=== PATIENT | female | born 1950 | race Caucasian/White ===

== ENCOUNTER → 2016-12-27 | Outpatient (CLI) | payer BC ==
--- NOTE | 2016-12-28 07:16 | US ---
EXAMINATION TYPE: US thyroid st tissue head/neck DATE OF EXAM: 12/27/2016 COMPARISON: NONE CLINICAL HISTORY: Thyroid Nodule E04.1. GLAND SIZE: Right Lobe: 4.1 x 1.3 x 1.3 cm Overall Parenchyma: homogenous Left Lobe: 4.8 x 1.8 x 1.6 cm Overall Parenchyma: homogeneous Isthmus Thickness: 0.1cm NODULES RIGHT: # of nodules measured on right: 0 LEFT: # of nodules measured on left: 2 1. 0.9 X 0.9 x 0.6 cm isoechoic solid nodule at the mid pole with well-defined margins; . This nod ule is wider than tall and shows no intranodular vascularity. Prior size: no prior US 2. 0.7 X 0.6 x 0.4 cm hypoechoic cystic nodule at the lower pole with well-defined margins; present with microcalcifications. This nodule is wider than tall and shows no intranodular vascularity. ISTHMUS: # of nodules measured in the isthmus: 0 Bilateral neck scanned, no evidence of lymphadenopathy. IMPRESSION: Subcentimeter left thyroid nodules for which follow-up examination is recommended in 6-12 months to e valuate for stability.
== END | disposition home or self-care (01) ==
LOC: RADUSWWP 15:29
PROVIDERS: ATTEND Internal Medicine Geriatric Medicine
DX: E04.2 Nontoxic multinodular goiter (principal)
CPT/HCPCS: 76536

== ENCOUNTER 2017-06-26 08:38 | Emergency (ER) | payer BC ==
[2017-06-26] MEDS ORDERED: SODIUM CHLORIDE 0.9% 1,000 ML IV STA (08:58)
--- NOTE | 2017-06-26 08:58 | ED ---
General Adult HPI - General Chief complaint: Recheck/Abnormal Lab/Rx Stated complaint: Hypertension Time Seen by Provider: 06/26/17 08:57 Source: EMS, RN notes reviewed, old records reviewed Mode of arrival: EMS Limitations: no limitations - History of Present Illness Initial comments: This is a 66-year-old female to ER for evaluation tonight. Patient presented for evaluation status post near syncopal event. Patient states she was at [employer]ism today which she normally does on Monday. Patient states she fell issues in the past. At this time patient's symptoms are resolved and she has no complaints. Patient has some vertiginous symptoms and saw her primary care on Monday was told she had a mildly elevated blood pressure at the time and has been taking Antivert. Patient denies any chest pain shortness of breath or abdominal pain. No fevers. No trauma. - Related Data Home Medications Medication Instructions Recorded Confirmed Fluticasone Nasal [place] [Flonase 2 spray EA NOSTRIL DAILY PRN 06/26/17 06/26/17 Nasal [place]] Meclizine [Antivert] 12.5 mg PO Q12H PRN 06/26/17 06/26/17 SUMAtriptan SUCCINATE [Imitrex] 50 mg PO DAILY PRN 06/26/17 06/26/17 Previous Rx's Medication Instructions Recorded Metoprolol Tartrate [Lopressor] 50 mg PO BID #60 tab 06/26/17 Allergies Allergy/AdvReac Type Severity Reaction Status Date / Time No Known Allergies Allergy Verified 06/26/17 09:25 Review of Systems ROS Statement: Those systems with pertinent positive or pertinent negative responses have been documented in the HPI. ROS Other: All systems not noted in ROS Statement are negative. Past Medical History Past Medical History: No Reported History Additional Past Medical History / Comment(s): pt has hx of migraines History of Any Multi-Drug Resistant Organisms: None Reported Past Surgical History: Hernia Repair, Tonsillectomy Past Psychological History: No Psychological Hx Reported Smoking Status: Never smoker Past Alcohol Use History: None Reported Past Drug Use History: None Reported General Exam Limitations: no limitations General appearance: alert, in no apparent distress Head exam: Present: atraumatic, normocephalic, normal inspection Eye exam: Present: normal appearance, PERRL, EOMI. Absent: scleral icterus, conjunctival injection, periorbital swelling ENT exam: Present: normal exam, mucous membranes moist Neck exam: Present: normal inspection. Absent: tenderness, meningismus, lymphadenopathy Respiratory exam: Present: normal lung sounds bilaterally. Absent: respiratory distress, wheezes, rales, rhonchi, stridor Cardiovascular Exam: Present: regular rate, normal rhythm, normal heart sounds. Absent: systolic murmur, diastolic murmur, rubs, gallop, clicks GI/Abdominal exam: Present: soft, normal bowel sounds. Absent: distended, tenderness, guarding, rebound, rigid Extremities exam: Present: normal inspection, full ROM, normal capillary refill. Absent: tenderness, pedal edema, joint swelling, calf tenderness Back exam: Present: normal inspection Neurological exam: Present: alert, oriented X3, CN II-XII intact Psychiatric exam: Present: normal affect, normal mood Skin exam: Present: warm, dry, intact, normal color. Absent: rash Course Vital Signs 06/26/17 06/26/17 06/26/17 08:52 08:56 09:40 Temperature 98.1 F Pulse Rate 75 80 70 Respiratory 16 16 16 Rate Blood Pressure 218/96 218/96 215/99 O2 Sat by Pulse 99 99 99 Oximetry 06/26/17 06/26/17 06/26/17 11:18 11:40 11:52 Temperature 97.5 F L Pulse Rate 82 70 751 H Respiratory 18 18 81 H Rate Blood Pressure 211/89 178/79 149/72 O2 Sat by Pulse 99 98 99 Oximetry - Reevaluation(s) Reevaluation #1: 06/26/17 11:26 Patient continues to remain asymptomatic, blood pressure slowly improving EKG Findings - EKG Comments: EKG Findings:: EKG shows normal sinus rhythm rate of 81, WI 166, QRS 132, QTc 462 Medical Decision Making - Medical Decision Making 66 female the ER for evasive vertigo near syncopal event, vertigo for a few days now, she was evaluated by family doctor, coming in today because she is near syncopal event in ho[employer]ism. Patient's blood pressure is rather elevated, that is treated here in the emergency room. Patient is a symptomatically with no headache chest pain shortness breath or abdominal pain. Patient can be discharged to follow up regarding blood pressure management - Lab Data Result diagrams: 06/26/17 08:52 06/26/17 08:52 Lab Results 06/26/17 06/26/17 06/26/17 Range/Units 08:52 08:52 08:52 WBC 7.7 (3.8-10.6) k/uL RBC 4.65 (3.80-5.40) m/uL Hgb 14.2 (11.4-16.0) gm/dL Hct 43.0 (34.0-46.0) % MCV 92.5 (80.0-100.0) fL MCH 30.5 (25.0-35.0) pg MCHC 33.0 (31.0-37.0) g/dL RDW 13.1 (11.5-15.5) % Plt Count 270 (150-450) k/uL Neutrophils % 76 % Lymphocytes % 15 % Monocytes % 6 % Eosinophils % 3 % Basophils % 1 % Neutrophils # 5.8 (1.3-7.7) k/uL Lymphocytes # 1.1 (1.0-4.8) k/uL Monocytes # 0.4 (0-1.0) k/uL Eosinophils # 0.2 (0-0.7) k/uL Basophils # 0.0 (0-0.2) k/uL PT (9.0-12.0) sec INR (<1.2) APTT (22.0-30.0) sec Sodium 142 (137-145) mmol/L Potassium 4.5 (3.5-5.1) mmol/L Chloride 105 (98-107) mmol/L Carbon Dioxide 27 (22-30) mmol/L Anion Gap 10 mmol/L BUN 28 H (7-17) mg/dL Creatinine 0.78 (0.52-1.04) mg/dL Est GFR (MDRD) Af Amer >60 (>60 ml/min/1.73 sqM) Est GFR (MDRD) Non-Af >60 (>60 ml/min/1.73 sqM) Glucose 89 (74-99) mg/dL Plasma Lactic Acid Avinash (0.7-2.0) mmol/L Calcium 9.2 (8.4-10.2) mg/dL Phosphorus 3.3 (2.5-4.5) mg/dL Magnesium 1.9 (1.6-2.3) mg/dL Total Bilirubin 0.7 (0.2-1.3) mg/dL AST 34 (14-36) U/L ALT 24 (9-52) U/L Alkaline Phosphatase 58 (38-126) U/L Total Creatine Kinase 151 H (30-135) U/L CK-MB (CK-2) 1.3 (0.0-2.4) ng/mL CK-MB (CK-2) Rel Index 0.9 Troponin I <0.012 (0.000-0.034) ng/mL Total Protein 7.1 (6.3-8.2) g/dL Albumin 4.3 (3.5-5.0) g/dL TSH 1.610 (0.465-4.680) mIU/L Urine Color Urine Appearance (Clear) Urine pH (5.0-8.0) Ur Specific [place] (1.001-1.035) Urine Protein (Negative) Urine Glucose (UA) (Negative) Urine Ketones (Negative) Urine Blood (Negative) Urine Nitrite (Negative) Urine Bilirubin (Negative) Urine Urobilinogen (<2.0) mg/dL Ur Leukocyte Esterase (Negative) Urine RBC (0-5) /hpf Urine WBC (0-5) /hpf Ur Squamous Epith Cells (0-4) /hpf Urine Bacteria (None) /hpf 06/26/17 06/26/17 06/26/17 Range/Units 08:52 09:50 11:11 WBC (3.8-10.6) k/uL RBC (3.80-5.40) m/uL Hgb (11.4-16.0) gm/dL Hct (34.0-46.0) % MCV (80.0-100.0) fL MCH (25.0-35.0) pg MCHC (31.0-37.0) g/dL RDW (11.5-15.5) % Plt Count (150-450) k/uL Neutrophils % % Lymphocytes % % Monocytes % % Eosinophils % % Basophils % % Neutrophils # (1.3-7.7) k/uL Lymphocytes # (1.0-4.8) k/uL Monocytes # (0-1.0) k/uL Eosinophils # (0-0.7) k/uL Basophils # (0-0.2) k/uL PT 10.2 (9.0-12.0) sec INR 1.0 (<1.2) APTT 21.4 L (22.0-30.0) sec Sodium (137-145) mmol/L Potassium (3.5-5.1) mmol/L Chloride (98-107) mmol/L Carbon Dioxide (22-30) mmol/L Anion Gap mmol/L BUN (7-17) mg/dL Creatinine (0.52-1.04) mg/dL Est GFR (MDRD) Af Amer (>60 ml/min/1.73 sqM) Est GFR (MDRD) Non-Af (>60 ml/min/1.73 sqM) Glucose (74-99) mg/dL Plasma Lactic Acid Avinash 0.8 (0.7-2.0) mmol/L Calcium (8.4-10.2) mg/dL Phosphorus (2.5-4.5) mg/dL Magnesium (1.6-2.3) mg/dL Total Bilirubin (0.2-1.3) mg/dL AST (14-36) U/L ALT (9-52) U/L Alkaline Phosphatase (38-126) U/L Total Creatine Kinase (30-135) U/L CK-MB (CK-2) (0.0-2.4) ng/mL CK-MB (CK-2) Rel Index Troponin I (0.000-0.034) ng/mL Total Protein (6.3-8.2) g/dL Albumin (3.5-5.0) g/dL TSH (0.465-4.680) mIU/L Urine Color Light Yellow Urine Appearance Clear (Clear) Urine pH 7.0 (5.0-8.0) Ur Specific [place] 1.044 H (1.001-1.035) Urine Protein Negative (Negative) Urine Glucose (UA) Negative (Negative) Urine Ketones Negative (Negative) Urine Blood Small H (Negative) Urine Nitrite Negative (Negative) Urine Bilirubin Negative (Negative) Urine Urobilinogen <2.0 (<2.0) mg/dL Ur Leukocyte Esterase Large H (Negative) Urine RBC 7 H (0-5) /hpf Urine WBC 6 H (0-5) /hpf Ur Squamous Epith Cells 1 (0-4) /hpf Urine Bacteria Rare H (None) /hpf - Radiology Data Radiology results: report reviewed (Chest x-ray negative CT brain negative CT chest negative), image reviewed Disposition Clinical Impression: Vertigo, Near syncope, Hypertension Disposition: HOME SELF-CARE Condition: Good Instructions: Vertigo (ED), Hypertension (ED) Prescriptions: Metoprolol Tartrate [Lopressor] 50 mg PO BID #60 tab Referrals: Werner Blair MD [Primary Care Provider] - 1-2 days
[2017-06-26] MEDS ORDERED: LABETALOL 5 MG/ML VIAL MDV IVP STA (09:07)
[2017-06-26 09:31] LABS: Basophils % (A) 1 %; Eosinophils # (A) 0.2 k/uL (0-0.7); Eosinophils % (A) 3 %; HGB 14.2 gm/dL (11.4-16.0); Lymphocytes # (A) 1.1 k/uL (1.0-4.8); Lymphocytes % (A) 15 %; MCH 30.5 pg (25.0-35.0); MCV 92.5 fL (80.0-100.0); Mean Platelet Volume 7.7; Monocytes # (A) 0.4 k/uL (0-1.0); Monocytes % (A) 6 %; Neutrophils # (A) 5.8 k/uL (1.3-7.7); Neutrophils % (A) 76 %; Platelet Count 270 k/uL (150-450); RBC 4.65 m/uL (3.80-5.40); RDW 13.1 % (11.5-15.5); WBC 7.7 k/uL (3.8-10.6)
--- NOTE | 2017-06-26 09:40 | XR ---
EXAMINATION TYPE: XR chest 2V DATE OF EXAM: 06/26/2017 COMPARISON: NONE INDICATION: Weakness recent high blood pressure TECHNIQUE: Frontal and lateral views of the chest are obtained. FINDINGS: The heart size is normal. The pulmonary vasculature is normal. The lungs are clear. IMPRESSION: 1. No acute pulmonary process.
[2017-06-26 09:44] LABS: ALT 24 U/L (9-52); AST 34 U/L (14-36); Albumin 4.3 g/dL (3.5-5.0); Alkaline Phosphatase 58 U/L (38-126); Anion Gap 10 mmol/L; Blood Urea Nitrogen 28 mg/dL (7-17); Calcium 9.2 mg/dL (8.4-10.2); Carbon Dioxide 27 mmol/L (22-30); Chloride 105 mmol/L (98-107); Glucose 89 mg/dL (74-99); Magnesium 1.9 mg/dL (1.6-2.3); Phosphorus 3.3 mg/dL (2.5-4.5); Sodium 142 mmol/L (137-145); Total Bilirubin 0.7 mg/dL (0.2-1.3); Total Protein 7.1 g/dL (6.3-8.2)
--- NOTE | 2017-06-26 09:48 | CT ---
EXAMINATION TYPE: CT brain wo con DATE OF EXAM: 06/26/2017 HISTORY: dizziness/near syncope. Weakness. CT DLP: 1121 mGycm. Automated Exposure Control for Dose Reduction was Utilized. TECHNIQUE: CT scan of the head is performed without contrast. COMPARISON: None. FINDINGS: There is no acute intracranial hemorrhage or midline shift identified. There is diffuse v entricular and sulcal prominence consistent with diffuse age-related cerebral atrophy. There is low- attenuation in the periventricular white matter consistent with chronic small vessel ischemic change. The globes are intact and the visualized sinuses are clear. No suspicious opacification mastoid a ir cells is present. IMPRESSION: No acute intracranial hemorrhage or midline shift. There is mild diffuse age-related ce rebral atrophy and chronic small vessel ischemic change noted.
[2017-06-26 09:50] LABS: Prothrombin Time 10.2 sec (9.0-12.0)
[2017-06-26 09:53] LABS: Creatine Kinase 151 U/L (30-135)
[2017-06-26] MEDS ORDERED: RX INFO: IV CONTRAST WAS GIVEN 1 EACH MISC MISCELLANE PRN (09:57)
[2017-06-26 10:03] LABS: Partial Thromboplastin Time 21.4 sec (22.0-30.0)
[2017-06-26 10:05] LABS: Creatine Kinase MB 1.3 ng/mL (0.0-2.4); Troponin I <0.012 ng/mL (0.000-0.034)
[2017-06-26 10:26] LABS: Potassium 4.5 mmol/L (3.5-5.1)
--- NOTE | 2017-06-26 11:21 | CT ---
EXAMINATION TYPE: CT angio chest DATE OF EXAM: 06/26/2017 COMPARISON: NONE HISTORY: Chest pain and dizziness CT DLP: 655 mGycm Automated exposure control for dose reduction was used. CONTRAST: CTA scan of the thorax is performed with IV Contrast, patient injected with 100 ml mL of Omnipaque 30 0, pulmonary embolism protocol. MIP images are created and reviewed. 3D reconstructed images are cr eated on an independent workstation and reviewed. FINDINGS: LUNGS: The lungs are grossly clear, there is no concerning parenchymal mass or nodule identified. Min imal dependent atelectatic changes are present. There is no pleural effusion or pneumothorax seen. The tracheobronchial tree is patent. AORTA: No additional significant abnormality is seen. For super aortic branch vessels are present. MEDIASTINUM: There is satisfactory enhancement of the central pulmonary artery and its branches, ther e is no CT evidence for pulmonary embolism. Small subsegmental branches do not show adequate enhancem ent. There are no greater than 1 cm hilar or mediastinal lymph nodes. No pericardial effusion is se en. OTHER: No additional significant abnormality is seen. IMPRESSION: SMALL SUBSEGMENTAL BRANCHES ARE NOT WELL ENHANCED, DIFFICULT TO EXCLUDE SMALL PERIPHERAL PULMONARY EM BOLI.
[2017-06-26] MEDS ORDERED: hydrALAZINE HCL 20 MG/ML 1 ML VIAL IVP STA (11:33)
[2017-06-26 11:36] LABS: Appearance,Urine Clear (Clear); Bacteria,Urine Rare /hpf; Bilirubin,Urine Negative (Negative); Blood,Urine Small (Negative); Color,Urine Light Yellow; Glucose,Urine (UA) Negative (Negative); Ketones,Urine Negative (Negative); Leukocyte Esterase,Urine Large (Negative); Nitrite,Urine Negative (Negative); Protein,Urine Negative (Negative); RBC,Urine 7 /hpf (0-5); Specific Gravity,Urine 1.044 (1.001-1.035); Squamous Epithelial Cell,Urine 1 /hpf (0-4); Urobilinogen,Urine <2.0 mg/dL (<2.0); WBC,Urine 6 /hpf (0-5)
[2017-06-26 11:53] VITALS: BP 149/72; PULSE 751; RESP 81; TEMP 97.5
== END 2017-06-26 11:53 | disposition home or self-care (01) ==
LOC: EC 08:38
DX: I10 Essential (primary) hypertension (principal); R55 Syncope and collapse; R42 Dizziness and giddiness
CPT/HCPCS: 36415; 80053; 82550; 82553; 83605; 83735; 84100; 84443; 84484; 85025; 85610; 85730; 81001; 87086; 71046; 70450; 71275; 99285; 96374; 96375; 96361 ×2; J0360; Q9967

== ENCOUNTER → 2017-07-04 | Outpatient (CLI) | payer BC ==
--- NOTE | 2017-07-05 07:43 | US ---
EXAMINATION TYPE: US carotid duplex BILAT DATE OF EXAM: 07/04/2017 COMPARISON: NONE CLINICAL HISTORY: R55 Syncope,Cardiac Murmur R01.1. EXAM MEASUREMENTS: RIGHT: Peak Systolic Velocity (PSV) cm/sec ----- Right CCA: 53.5 ----- Right ICA: 102.8 ----- Right ECA: 37.5 ICA/CCA ratio: 1.9 RIGHT: End Diastole cm/sec ----- Right CCA: 21.2 ----- Right ICA: 26.8 ----- Right ECA: 6.1 LEFT: Peak Systolic Velocity (PSV) cm/sec ----- Left CCA: 57.8 ----- Left ICA: 85.5 ----- Left ECA: 52.4 ICA/CCA ratio: 1.5 LEFT: End Diastole cm/sec ----- Left CCA: 20.2 ----- Left ICA: 31.5 ----- Left ECA: 10.6 VERTEBRALS (direction of flow): Right Vertebral: Antegrade Left Vertebral: Antegrade Rhythm: Normal Mild intimal wall thickening is noted at bilateral carotid bifurcation and PSV is wnl bilaterally. IMPRESSION: Mild mejia scale atheromatous plaquing at the carotid bulbs without hemodynamically signi ficant stenosis of either carotid arterial system.
== END | disposition home or self-care (01) ==
LOC: RADUSWWP 15:38
PROVIDERS: ATTEND Internal Medicine Geriatric Medicine
DX: I67.2 Cerebral atherosclerosis (principal); R55 Syncope and collapse
CPT/HCPCS: 93880

== ENCOUNTER → 2017-07-07 | Outpatient (CLI) | payer BC ==
--- NOTE | 2017-07-08 08:46 | ECHOF ---
Referral Reason:R55 Syncope,Cardiac Murmur R01.1 MEASUREMENTS -------- HEIGHT: 160.0 cm WEIGHT: 56.7 kg BP: 195/80 RVIDd: 3.0 cm (< 3.3) IVSd: 1.2 cm (0.6 - 1.1) LVIDd: 3.7 cm (3.9 - 5.3) LVPWd: 1.1 cm (0.6 - 1.1) IVSs: 1.3 cm LVIDs: 2.7 cm LVPWs: 1.6 cm LAESV Index (A-L): 20.10 ml/m Ao Diam: 3.1 cm (2.0 - 3.7) AV Cusp: 2.0 cm (1.5 - 2.6) LA Diam: 2.4 cm (2.7 - 3.8) MV EXCURSION: 19.089 mm (> 18.000) MV EF SLOPE: 118 mm/s (70 - 150) EPSS: 3.1 cm MV E Jorge: 0.72 m/s MV DecT: 195 ms MV A Jorge: 0.78 m/s MV E/A Ratio: 0.92 AR PHT: 297 ms RAP: 15.00 mmHg RVSP: 48.18 mmHg FINDINGS -------- Sinus rhythm. This was a technically good study. The left ventricular size is normal. There is borderline concentric left ventricular hypertrophy. Overall left ventricular systolic function is low-normal with, an EF between 50 - 55 %. The right ventricle is normal in size and function. The left atrium is normal in size. RA appears enlarged. Aortic valve is trileaflet and is mildly thickened. Trace to mild aortic regurgitation. The mitral valve leaflets are mildly thickened. Mild mitral regurgitation is present. Moderate tricuspid regurgitation present. There is borderline pulmonary artery hypertension. The right ventricular systolic pressure, as measured by Doppler, is 48.18mmHg. Pulmonic valve appears structurally normal. The aortic root size is normal. The inferior vena cava is mildly dilated. There is a small, generalized pericardial effusion present. CONCLUSIONS -------- 1. Sinus rhythm. 2. This was a technically good study. 3. The left ventricular size is normal. 4. There is borderline concentric left ventricular hypertrophy. 5. Overall left ventricular systolic function is low-normal with, an EF between 50 - 55 %. 6. The right ventricle is normal in size and function. 7. The left atrium is normal in size. 8. RA appears enlarged. 9. Aortic valve is trileaflet and is mildly thickened. 10. Trace to mild aortic regurgitation. 11. The mitral valve leaflets are mildly thickened. 12. Mild mitral regurgitation is present. 13. Moderate tricuspid regurgitation present. 14. There is borderline pulmonary artery hypertension. 15. The right ventricular systolic pressure, as measured by Doppler, is 48.18mmHg. 16. Pulmonic valve appears structurally normal. 17. The aortic root size is normal. 18. The inferior vena cava is mildly dilated. 19. There is a small, generalized pericardial effusion present. TEXTILE CONVERTER: Seema Sears RDCS
== END | disposition home or self-care (01) ==
LOC: RADECHMAIN 15:32
PROVIDERS: ATTEND Internal Medicine Geriatric Medicine
DX: I08.3 Combined rheumatic disorders of mitral, aortic and tricuspid valves (principal); I31.3 Pericardial effusion (noninflammatory); I87.8 Other specified disorders of veins
CPT/HCPCS: 93306

== ENCOUNTER 2019-12-29 15:11 | Inpatient (IN) | payer MEDICARE ==
--- NOTE | 2019-12-29 15:26 | ED ---
Animal Bite HPI - General Chief Complaint: Animal Bite Stated Complaint: cat bite RT forearm Time Seen by Provider: 12/29/19 15:20 Source: patient Mode of arrival: ambulatory Limitations: no limitations - History of Present Illness Initial Comments: Patient is 69-year-old female presenting to the emergency department with a chief complaint of a cat bite. Patient reports that incident occurred 2 days ago when she was playing outside with the neighborhood cat. Patient states she had received multiple bites and a scratch on the right forearm. Patient states the following day she was started on Augmentin. States the far she took 3 doses of the Augmentin. States after she woke up this morning she developed increased swelling and erythema on the right forearm. States the erythema has extended admitted almost covers her whole right arm circumferentially. Patient reports pain when moving the digits. Patient reports playing with extension and flexion of the fingers. Denies any night sweats fever or chills at home. States she is not diabetic or immune a copper mice. - Related Data Home Medications Medication Instructions Recorded Confirmed Fluticasone Nasal [place] [Flonase 2 spray EA NOSTRIL DAILY PRN 06/26/17 06/26/17 Nasal [place]] Meclizine [Antivert] 12.5 mg PO Q12H PRN 06/26/17 06/26/17 SUMAtriptan succinate [Imitrex] 50 mg PO DAILY PRN 06/26/17 06/26/17 Previous Rx's Medication Instructions Recorded Metoprolol Tartrate [Lopressor] 50 mg PO BID #60 tab 06/26/17 Allergies Allergy/AdvReac Type Severity Reaction Status Date / Time No Known Allergies Allergy Verified 12/29/19 15:19 Review of Systems ROS Statement: Those systems with pertinent positive or pertinent negative responses have been documented in the HPI. ROS Other: All systems not noted in ROS Statement are negative. Past Medical History Past Medical History: Hypertension Additional Past Medical History / Comment(s): pt has hx of migraines History of Any Multi-Drug Resistant Organisms: None Reported Past Surgical History: Hernia Repair, Tonsillectomy Past Psychological History: No Psychological Hx Reported Smoking Status: Never smoker Past Alcohol Use History: None Reported Past Drug Use History: None Reported General Exam Limitations: no limitations General appearance: alert, in no apparent distress Head exam: Present: atraumatic, normocephalic, normal inspection Eye exam: Present: normal appearance, PERRL, EOMI Pupils: Present: normal accommodation ENT exam: Present: normal exam, normal oropharynx, mucous membranes moist, TM's normal bilaterally, normal external ear exam Neck exam: Present: normal inspection, full ROM. Absent: tenderness Respiratory exam: Present: normal lung sounds bilaterally. Absent: respiratory distress, wheezes Cardiovascular Exam: Present: regular rate, normal rhythm, normal heart sounds GI/Abdominal exam: Present: soft. Absent: distended, tenderness, guarding Extremities exam: Present: tenderness (Tenderness along the flexor aspect of the right forearm.), normal capillary refill, other (+2 ulnar and radial pulses bilateral. No signs of lymphadenitis.). Absent: normal inspection (Erythema with overlying synovitic changes in the right forearm which extends circumstantially. There appears to multiple puncture wounds from a cat bite on the lecture aspect of the forearm.), full ROM (Limited range of motion with flexion of the wrist or flexion of the fingers in the right upper extremity. Pain in the flexor aspect of the right forearm with passive extension of the fingers.), pedal edema, joint swelling, calf tenderness Back exam: Present: normal inspection, full ROM. Absent: tenderness Neurological exam: Present: alert, oriented X3 Psychiatric exam: Present: normal affect, normal mood Skin exam: Present: warm, dry, intact, normal color Course Vital Signs 12/29/19 15:16 Temperature 98.4 F Pulse Rate 83 Respiratory 17 Rate Blood Pressure 137/75 O2 Sat by Pulse 96 Oximetry Medical Decision Making - Medical Decision Making Patient [id number] female presenting to emergency Department with a chief complaint of cat bite. Patient has failed outpatient treatment with Augmentin. On initial evaluation, patient has circumferential erythema on the whole right forearm. There is also multiple puncture sites from the cat bite itself. She does have tenderness over the flexor aspect of the right forearm. She also has pain on the forearm with passive extension of the fingers. No swelling of the fingers. Vitals are stable. There is a concern for tenosynovitis. Blood cultures pending. Lactic is 1.1. Elevated white blood count of 12 point 5K. CRP at 178. Elevated ESR. Patient started on vancomycin and Unasyn. I spoke with who would like to admit the patient. He requested on consult. case discussed with dr arroyo. NPO after midnight. - Lab Data Result diagrams: 12/29/19 15:49 12/29/19 15:49 Lab Results 12/29/19 12/29/19 12/29/19 Range/Units 15:49 15:49 15:49 WBC 12.4 H (3.8-10.6) k/uL RBC 3.86 (3.80-5.40) m/uL Hgb 11.5 (11.4-16.0) gm/dL Hct 35.8 (34.0-46.0) % MCV 92.6 (80.0-100.0) fL MCH 29.8 (25.0-35.0) pg MCHC 32.2 (31.0-37.0) g/dL RDW 13.1 (11.5-15.5) % Plt Count 174 (150-450) k/uL Neutrophils % 77 % Lymphocytes % 13 % Monocytes % 7 % Eosinophils % 1 % Basophils % 0 % Neutrophils # 9.6 H (1.3-7.7) k/uL Lymphocytes # 1.7 (1.0-4.8) k/uL Monocytes # 0.9 (0-1.0) k/uL Eosinophils # 0.1 (0-0.7) k/uL Basophils # 0.0 (0-0.2) k/uL ESR 44 H (0-20) mm/hr PT (9.0-12.0) sec INR (<1.2) APTT (22.0-30.0) sec Sodium 138 (137-145) mmol/L Potassium 3.6 (3.5-5.1) mmol/L Chloride 102 (98-107) mmol/L Carbon Dioxide 28 (22-30) mmol/L Anion Gap 8 mmol/L BUN 34 H (7-17) mg/dL Creatinine 0.96 (0.52-1.04) mg/dL Est GFR (CKD-EPI)AfAm 71 (>60 ml/min/1.73 sqM) Est GFR (CKD-EPI)NonAf 61 (>60 ml/min/1.73 sqM) Glucose 105 H (74-99) mg/dL Plasma Lactic Acid Avinash 1.1 (0.7-2.0) mmol/L Calcium 9.0 (8.4-10.2) mg/dL Total Bilirubin 0.9 (0.2-1.3) mg/dL AST 90 H (14-36) U/L ALT 107 H (4-34) U/L Alkaline Phosphatase 65 (38-126) U/L C-Reactive Protein 178.3 H (<10.0) mg/L Total Protein 6.7 (6.3-8.2) g/dL Albumin 4.2 (3.5-5.0) g/dL 12/29/19 Range/Units 15:49 WBC (3.8-10.6) k/uL RBC (3.80-5.40) m/uL Hgb (11.4-16.0) gm/dL Hct (34.0-46.0) % MCV (80.0-100.0) fL MCH (25.0-35.0) pg MCHC (31.0-37.0) g/dL RDW (11.5-15.5) % Plt Count (150-450) k/uL Neutrophils % % Lymphocytes % % Monocytes % % Eosinophils % % Basophils % % Neutrophils # (1.3-7.7) k/uL Lymphocytes # (1.0-4.8) k/uL Monocytes # (0-1.0) k/uL Eosinophils # (0-0.7) k/uL Basophils # (0-0.2) k/uL ESR (0-20) mm/hr PT 10.9 (9.0-12.0) sec INR 1.1 (<1.2) APTT 23.2 (22.0-30.0) sec Sodium (137-145) mmol/L Potassium (3.5-5.1) mmol/L Chloride (98-107) mmol/L Carbon Dioxide (22-30) mmol/L Anion Gap mmol/L BUN (7-17) mg/dL Creatinine (0.52-1.04) mg/dL Est GFR (CKD-EPI)AfAm (>60 ml/min/1.73 sqM) Est GFR (CKD-EPI)NonAf (>60 ml/min/1.73 sqM) Glucose (74-99) mg/dL Plasma Lactic Acid Avinash (0.7-2.0) mmol/L Calcium (8.4-10.2) mg/dL Total Bilirubin (0.2-1.3) mg/dL AST (14-36) U/L ALT (4-34) U/L Alkaline Phosphatase (38-126) U/L C-Reactive Protein (<10.0) mg/L Total Protein (6.3-8.2) g/dL Albumin (3.5-5.0) g/dL Disposition Clinical Impression: Cat bite, Bite by animal, Tenosynovitis of right forearm Disposition: ADMITTED IP TO THIS [facility] Condition: Stable Instructions (If sedation given, give patient instructions): Animal Bite (ED) Additional Instructions: She will be admitted Is patient prescribed a controlled substance at d/c from ED?: No Referrals: Werner Blair MD [Primary Care Provider] - 1-2 days Time of Disposition: 17:05
[2019-12-29] MEDS ORDERED: SODIUM CHLORIDE 0.9% 1,000 ML IV STA (15:34)
[2019-12-29] MEDS ORDERED: VANCOMYCIN IV PER PHARMACY 1 EACH MISC MISCELLANE PRN (15:40)
[2019-12-29] MEDS ORDERED: AMPICILLIN-SULBACTAM 3 GM in SODIUM CHLORIDE 0.9% 100 ML IVPB STA (15:44)
[2019-12-29] MEDS ORDERED: KETOROLAC 30 MG/ML 1 ML VIAL IVP STA (15:46)
[2019-12-29] MEDS ORDERED: VANCOMYCIN 1,000 MG in SODIUM CHLORIDE 0.9% 250 ML IVPB ONE (16:00)
[2019-12-29 16:07] LABS: Basophils % (A) 0 %; Eosinophils # (A) 0.1 k/uL (0-0.7); Eosinophils % (A) 1 %; HCT 35.8 % (34.0-46.0); HGB 11.5 gm/dL (11.4-16.0); Lymphocytes # (A) 1.7 k/uL (1.0-4.8); Lymphocytes % (A) 13 %; MCH 29.8 pg (25.0-35.0); MCHC 32.2 g/dL (31.0-37.0); MCV 92.6 fL (80.0-100.0); Mean Platelet Volume 7.3; Monocytes # (A) 0.9 k/uL (0-1.0); Monocytes % (A) 7 %; Neutrophils # (A) 9.6 k/uL (1.3-7.7); Neutrophils % (A) 77 %; RBC 3.86 m/uL (3.80-5.40); RDW 13.1 % (11.5-15.5); WBC 12.4 k/uL (3.8-10.6)
[2019-12-29 16:09] LABS: Platelet Count 174 k/uL (150-450)
[2019-12-29 16:15] LABS: INR 1.1 (<1.2); Partial Thromboplastin Time 23.2 sec (22.0-30.0); Prothrombin Time 10.9 sec (9.0-12.0)
[2019-12-29 16:22] LABS: Albumin 4.2 g/dL (3.5-5.0); Potassium 3.6 mmol/L (3.5-5.1); Total Bilirubin 0.9 mg/dL (0.2-1.3); Total Protein 6.7 g/dL (6.3-8.2)
[2019-12-29 16:45] LABS: C Reactive Protein 178.3 mg/L (<10.0)
[2019-12-29 16:47] LABS: Erythrocyte Sedimentation Rate 44 mm/hr (0-20)
[2019-12-29] MEDS ORDERED: LORazepam 2 MG/ML INJ IV PRN (16:53)
[2019-12-29] MEDS ORDERED: ACETAMINOPHEN TAB 325 MG TAB PO PRN (16:53)
[2019-12-29] MEDS ORDERED: IBUPROFEN 400 MG TAB PO PRN (16:53)
[2019-12-29] MEDS ORDERED: HYDROmorphone 0.5 MG/0.5 ML SYRINGE IVP PRN (16:53)
[2019-12-29] MEDS ORDERED: MORPHINE SULFATE 4 MG/ML SYRINGE IV PRN (16:53)
[2019-12-29] MEDS ORDERED: NALOXONE 0.4 MG/ML 1 ML VIAL IV PRN (16:53)
[2019-12-29] MEDS: SODIUM CHLORIDE 0.9% 1,000 ML IV SCH ×2 (17:04→23:57)
[2019-12-29] MEDS ORDERED: ONDANSETRON 4 MG/2 ML VIAL IVP PRN (17:06)
--- NOTE | 2019-12-29 17:13 | XR ---
EXAMINATION TYPE: XR forearm RT DATE OF EXAM: 12/29/2019 COMPARISON: NONE HISTORY: Pain. cat bite. 2 views Radius and ulna appear intact. I see no fracture nor dislocation. Wrist joint and elbow joint appear intact. There is no sign of joint effusion. IMPRESSION: Negative right forearm exam.
[2019-12-29] MEDS: LISINOPRIL-HCTZ 20-12.5 MG 1 EACH TAB PO SCH (23:11)
[2019-12-29] MEDS: MULTIVITAMINS, THERA 1 EACH TAB PO SCH (23:11)
[2019-12-29] MEDS: LABETALOL 100 MG TAB PO SCH (23:11)
[2019-12-30] MEDS: SODIUM CHLORIDE 0.9% 1,000 ML IV SCH (07:46)
[2019-12-30] MEDS: LABETALOL 100 MG TAB PO SCH ×2 (07:47→20:39)
[2019-12-30] MEDS: LISINOPRIL-HCTZ 20-12.5 MG 1 EACH TAB PO SCH ×2 (07:53→20:39)
[2019-12-30] MEDS ORDERED: DIPH,PERTUS(ACELL)TETVAC-LF 0.5 ML VIAL IM ONE (08:14)
[2019-12-30] MEDS ORDERED: AMPICILLIN-SULBACTAM 1.5 GM in SODIUM CHLORIDE 0.9% 50 ML IVPB SCH (08:15)
--- NOTE | 2019-12-30 11:32 | P.HPOR ---
History of Present Illness H&P Date: 12/30/19 Chief Complaint: Right upper extremity forearm infection status post cat bite Patient's very pleasant 69-year-old female who was bitten by her cat about 3 days ago. The patient says that she had pain at the area but it became red and swollen and she presented to the emergency room yesterday. There is some worry because she was having some difficulty moving her hands fingers and forearm because of the pain. There is erythema and swelling over her mid forearm and she is admitted in this regard. She had been on Augmentin as outpatient but was not having any relief. She denies any fevers or chills. She is right-hand dominant and she denies any problems with her right upper extremity in the past. Review of Systems Denies fevers chills night sweats. She is right-hand dominant. Denies numbness tingling in her fingers. She has difficulty making a fist and extending her hands due to the pain in her forearm. Past Medical History Past Medical History: Hypertension Additional Past Medical History / Comment(s): pt has hx of migraines History of Any Multi-Drug Resistant Organisms: None Reported Past Surgical History: Hernia Repair, Tonsillectomy Past Psychological History: No Psychological Hx Reported Smoking Status: Never smoker Past Alcohol Use History: None Reported Past Drug Use History: None Reported Medications and Allergies Home Medications Medication Instructions Recorded Confirmed Type Amoxic-Pot Clav 875-125Mg 1 tab PO BID@0300,1500 12/29/19 12/29/19 History [Augmentin 875-125] Congaplex 1 cap PO BID 12/29/19 12/29/19 History Labetalol [Trandate] 50 mg PO BID 12/29/19 12/29/19 History Lisinopril-Hctz 20-12.5 mg 1 tab PO HS 12/29/19 12/30/19 History [Zestoretic 20-12.5] Multivit-Min/FA/Lycopen/Lutein 1 tab PO HS 12/29/19 12/29/19 History [Centrum Silver Tablet] Allergies Allergy/AdvReac Type Severity Reaction Status Date / Time No Known Allergies Allergy Verified 12/29/19 17:20 Physical Examination Osteopathic Statement: *. No significant issues noted on an osteopathic structural exam other than those noted in the History and Physical/Consult. - Wrist & Hand right Location of pain: dorsal wrist Wrist pain modifiers: with motion Symptoms: wrist swelling (That the patient's right upper extremity she has evidence of cat bite at her mid dorsal forearm. There is a palpable area of induration over the Bites. There is no fluctuance is no specific fluid collection. There is generalized erythema without a definable edge. There is no obvious streaking. There are no palpable lymph nodes. At her hand she is able to move her hand independently and her fingers independently on her own. She has difficulty with full flexion to make a fist and full extension due to the pain in her forearm. However she is able to move these well. She does not have pain with passive stretch. She does not have sausage digits. Her compartments are essentially soft other than the space of induration over the Themselves. There is no obvious fluctuance. There is no purulence. There is no drainage. Her other extremities have full active and passive range motion without evidence of any trauma or incident.) Results - Labs Labs: Abnormal Lab Results - Last 24 Hours (Table) 12/29/19 12/29/19 Range/Units 15:49 15:49 WBC 12.4 H (3.8-10.6) k/uL Neutrophils # 9.6 H (1.3-7.7) k/uL ESR 44 H (0-20) mm/hr BUN 34 H (7-17) mg/dL Glucose 105 H (74-99) mg/dL AST 90 H (14-36) U/L ALT 107 H (4-34) U/L C-Reactive Protein 178.3 H (<10.0) mg/L H & H 12/29/19 Range/Units 15:49 Hgb 11.5 (11.4-16.0) gm/dL Hct 35.8 (34.0-46.0) % Coagulation 12/29/19 Range/Units 15:49 INR 1.1 (<1.2) Result Diagrams: 12/29/19 15:49 12/29/19 15:49 Assessment and Plan Assessment: Upper extremity cellulitis and pain due to cat bite Cat bite wound infection at the right forearm without specific evidence of abscess Right upper extremity pain Plan: Upper extremity cellulitis and pain due to cat bite Cat bite wound infection at the right forearm without specific evidence of abscess Right upper extremity pain The patient had failed outpatient Augmentin but seems to be doing quite well with make myosin and Unasyn here in Hospital. There has been improvement in the erythema and her pain and her motion. She is moving comfortable and I do not believe she has evidence of flexor tenosynovitis. She is not having pain with passive stretch and she is not having any sausage digit issues. She does have an area of induration over the wound site of the bites. I do not palpate any specific fluctuance and there is no purulence or drainage noted. I like to see how she does with further IV antibiotics to see if she continues to make good progress. If the area comes to had we may need to perform irrigation and debridement of the wound site however I do not feel a specific abscess and this may clear up with conservative care and medications with antibiotics. I discussed this with her at length and answered her questions best my ability. She'll continue her IV antibiotics and local wound care and will follow her closely.
[2019-12-30] MEDS ORDERED: AMPICILLIN-SULBACTAM 3 GM in SODIUM CHLORIDE 0.9% 50 ML IVPB SCH (12:00)
[2019-12-30] MEDS: AMPICILLIN-SULBACTAM 3 GM in SODIUM CHLORIDE 0.9% 100 ML IVPB SCH ×2 (13:04→20:37)
--- NOTE | 2019-12-30 14:41 | P.CONS ---
History of Present Illness - Reason for Consult Consult date: 12/30/19 Medical management - History of Present Illness History of Present Illness This is a 69-year-old female patient of Dr. De Leon with past medical history of hypertension, migraine headaches, hyperlipidemia not on medication. Patient states that she feeds the neighborhood cats and was playing with a cat on Monday evening around 9 AM she had scratches/bite on her arm and she washed the area and applied antibiotic ointment and did not think much of it at the time. By Monday she had redness and swelling and contacted on-call physician and was started on Augmentin and took a total of 3 doses. In the morning she developed significant swelling to the right forearm with erythema and came into [facility] emergency center for evaluation. She was found to be afebrile, heart rate 83, blood pressure 137/75, pulse ox 96% on room air. WBC 12.4, sed rate 44. BUN 44 and creatinine 0.96. Blood sugar 105. Total bilirubin 0.9, AST 90, ALT 107, alkaline phosphatase 65. C-reactive protein 178.3. X-ray of the right forearm is negative. Patient has been admitted under orthopedics and we are consult for medical management. Review of Systems Constitutional: No fever, no chills, no night sweats. No weight change. No weakness, fatigue or lethargy. No daytime sleepiness. EENT: No headache. No blurred vision or double vision, no loss of vision. No loss of Hearing, no ringing in the ears, no dizziness. No nasal drainage or congestion. No epistaxis. No sore throat. Lungs: No shortness of breath, cough, no sputum production. No wheezing. Cardiovascular: No chest pain, no lower extremity edema. No palpitations. No paroxysmal nocturnal dyspnea. No orthopnea. No lightheadedness or dizziness. No syncopal episodes. Abdominal: No abdominal pain. No nausea, vomiting. No diarrhea. No constipation. No bloody or tarry stools.. No loss of appetite. Genitourinary: No dysuria, increased frequency, urgency. No urinary retention. Musculoskeletal: No myalgias. No muscle weakness, no gait dysfunction, no frequent falls. No back pain. No neck pain. Integumentary: Significant edema to the right forearm including the wrist and fingers, decreased range of motion due to edema. Puncture sites from the mid forearm area. Neurologic: No aphasia. No facial droop. No change in mentation. No head injury. No headache. No paralysis. No paresthesia. Psychiatric: No depression. No anxiety. No mood swings. Endocrine: No abnormal blood sugars. No weight change. No excessive sweating or thirst. No cold intolerance. Family history Mother is with history of valvular heart disease. Father is alive with history of prostate cancer, bladder cancer and atrial fibrillation. Patient has 1 brother with cervical spine and lumbar spine degenerative disc disease. Patient is one sister with diabetes and obesity. Patient has 2 children with no major medical problems. Social history Patient is a lifelong nonsmoker. No alcohol, marijuana or illicit drug use. She is lives at home with her . Physical Examination Gen: This is a 69-year-old female. She is resting bed appears to be comfortable and in no acute distress. HEENT: Head is atraumatic, normocephalic. Pupils equal, round. Sclerae is anicteric. NECK: Supple. No JVD. No lymphadenopathy. No thyromegaly. LUNGS: Clear to auscultation. No wheezes or rhonchi. No intercostal retractions. HEART: Regular rate and rhythm. No murmur. ABDOMEN: Soft. Bowel sounds are present. No masses. No tenderness. EXTREMITIES: No pedal edema. No calf tenderness. Significant edema to the right forearm including the wrist and fingers, decreased range of motion due to edema. Puncture sites from the mid forearm area. Psoriatic change to the left thumb nail. NEUROLOGICAL: Patient is awake, alert and oriented x3. Cranial nerves 2 through 12 are grossly intact. Assessment and Plan 1. Right upper extremity cellulitis secondary to cat bite, failed treatment with Augmentin. Patient started on Unasyn. Tetanus status updated. Dilaudid, Tylenol or ibuprofen for pain. Consult with Dr. Irizarry. 2. Hypertension. Continue labetalol 50 mg twice daily, lisinopril hydrochlorothiazide one twice daily 3. Hyperlipidemia. Patient is not currently on a statin. 4. History of migraine headaches. 5. GI prophylaxis. Protonix. 6. DVT prophylaxis. SCDs and MATT hose. 7. COVID-19 infection not present. Patient will be admitted to the hospital for a minimum of 2 night stay. Discharge plan: home Impression and plan of care have been directed as dictated by the signing physician. Mirna Vu nurse practitioner acting as scribe for signing carlyle yañez. Past Medical History Past Medical History: Hypertension Additional Past Medical History / Comment(s): pt has hx of migraines History of Any Multi-Drug Resistant Organisms: None Reported Past Surgical History: Hernia Repair, Tonsillectomy Past Psychological History: No Psychological Hx Reported Smoking Status: Never smoker Past Alcohol Use History: None Reported Past Drug Use History: None Reported Medications and Allergies Home Medications Medication Instructions Recorded Confirmed Type Amoxic-Pot Clav 875-125Mg 1 tab PO BID@0300,1500 12/29/19 12/29/19 History [Augmentin 875-125] Congaplex 1 cap PO BID 12/29/19 12/29/19 History Labetalol [Trandate] 50 mg PO BID 12/29/19 12/29/19 History Lisinopril-Hctz 20-12.5 mg 1 tab PO HS 12/29/19 12/30/19 History [Zestoretic 20-12.5] Multivit-Min/FA/Lycopen/Lutein 1 tab PO HS 12/29/19 12/29/19 History [Centrum Silver Tablet] Allergies Allergy/AdvReac Type Severity Reaction Status Date / Time No Known Allergies Allergy Verified 12/29/19 17:20 Physical Exam Vitals: Vital Signs Temp Pulse Pulse Resp BP BP Pulse Ox 12/30/19 05:00 98 F 72 18 110/62 98 12/30/19 00:05 18 12/29/19 21:18 98.5 F 75 18 126/74 99 12/29/19 18:23 97.9 F 75 17 144/77 100 12/29/19 17:42 98 F 74 16 131/82 100 12/29/19 15:16 98.4 F 83 17 137/75 96 Intake and Output 12/29/19 12/30/19 12/30/19 22:59 06:59 14:59 Intake Total 520 1040 Balance 520 1040 Intake: Intake, IV Titration 520 1040 Amount Sodium Chloride 0.9% 1, 520 1040 000 ml @ 130 mls/hr IV . Q7H42M [facility] Rx#:[id number] Other: Voiding Method Toilet Toilet # Voids 18 Weight 54.431 kg Results CBC & Chem 7: 12/29/19 15:49 12/29/19 15:49 Labs: Abnormal Lab Results - Last 24 Hours (Table) 12/29/19 12/29/19 Range/Units 15:49 15:49 WBC 12.4 H (3.8-10.6) k/uL Neutrophils # 9.6 H (1.3-7.7) k/uL ESR 44 H (0-20) mm/hr BUN 34 H (7-17) mg/dL Glucose 105 H (74-99) mg/dL AST 90 H (14-36) U/L ALT 107 H (4-34) U/L C-Reactive Protein 178.3 H (<10.0) mg/L
[2019-12-30] MEDS ORDERED: VANCOMYCIN 1,000 MG in SODIUM CHLORIDE 0.9% 250 ML IVPB SCH (17:00)
[2019-12-30] MEDS: MULTIVITAMINS, THERA 1 EACH TAB PO SCH (20:39)
--- NOTE | 2019-12-30 23:32 | P.CONS ---
History of Present Illness - Reason for Consult Consult date: 12/30/19 right upper extremity cat Bite cellulitis Requesting physician: Maureen Keating - Chief Complaint Right forearm pain swelling and redness x few days - History of Present Illness Patient is a 69 year female who has been bitten by a cat on her right forearm that happened on Monday patient noticed subsequently having swelling and redness to the right forearm patient did call her primary care physician and the patient started on oral Augmentin patient says she took 2 doses however she could have more swelling and redness to the right forearm arm with some diffic ulty removing of her finger patient describing the pain to the right wrist. More of a throbbing in nature 6-7 out of 10 and no radiation with associated swelling redness patient denies any bleeding or any purulent drainage has been complaining of some low-grade fever and chills with these symptoms the patient presented to the hospital on arrival to the ER the patient has been afebrile she did have mildly elevated white count of 12,000 x-rays of the right wrist were negative patient was admitted to the hospital she was started on Unasyn 1.5 g every 8 hours and infection disease was consulted for further management of antibiotic therapy Review of Systems Positive point has been mentioned in the HPI rest of the systems are negative Past Medical History Past Medical History: Hypertension Additional Past Medical History / Comment(s): pt has hx of migraines History of Any Multi-Drug Resistant Organisms: None Reported Past Surgical History: Hernia Repair, Tonsillectomy Past Psychological History: No Psychological Hx Reported Smoking Status: Never smoker Past Alcohol Use History: None Reported Past Drug Use History: None Reported Medications and Allergies Home Medications Medication Instructions Recorded Confirmed Type Amoxic-Pot Clav 875-125Mg 1 tab PO BID@0300,1500 12/29/19 12/29/19 History [Augmentin 875-125] Congaplex 1 cap PO BID 12/29/19 12/29/19 History Labetalol [Trandate] 50 mg PO BID 12/29/19 12/29/19 History Lisinopril-Hctz 20-12.5 mg 1 tab PO HS 12/29/19 12/30/19 History [Zestoretic 20-12.5] Multivit-Min/FA/Lycopen/Lutein 1 tab PO HS 12/29/19 12/29/19 History [Centrum Silver Tablet] Allergies Allergy/AdvReac Type Severity Reaction Status Date / Time No Known Allergies Allergy Verified 12/29/19 17:20 Physical Exam Vitals: Vital Signs Temp Pulse Pulse Resp BP BP Pulse Ox 12/30/19 11:51 98.4 F 76 16 117/72 98 12/30/19 05:00 98 F 72 18 110/62 98 12/30/19 00:05 18 12/29/19 21:18 98.5 F 75 18 126/74 99 12/29/19 18:23 97.9 F 75 17 144/77 100 12/29/19 17:42 98 F 74 16 131/82 100 12/29/19 15:16 98.4 F 83 17 137/75 96 Intake and Output 12/29/19 12/30/19 12/30/19 22:59 06:59 14:59 Intake Total 520 1040 Balance 520 1040 Intake: Intake, IV Titration 520 1040 Amount Sodium Chloride 0.9% 1, 520 1040 000 ml @ 130 mls/hr IV . Q7H42M [facility] Rx#:[id number] Other: Voiding Method Toilet Toilet # Voids 18 1 Weight 54.431 kg GENERAL DESCRIPTION: An elderly female up in the chair, no distress. No tachyp hakan or accessory muscle of respiration use. HEENT: Shows Pallor , no scleral icterus. Oral mucous membrane is dry. No pharyngeal erythema or thrush NECK: Trachea central, no thyromegaly. LUNGS: Unlabored breathing. Clear to auscultation anteriorly. No wheeze or crackle. HEART: S1, S2, regular rate and rhythm. No loud murmur ABDOMEN: Soft, no tenderness , guarding or rigidity, no organomegaly EXTREMITIES: Right forearm is currently dressed up minimal swelling redness no drainage. SKIN: No rash, no masses palpable. NEUROLOGICAL: The patient is awake, alert, oriented x3, mood and affect normal. Results CBC & Chem 7: 12/29/19 15:49 12/29/19 15:49 Labs: Abnormal Lab Results - Last 24 Hours (Table) 12/29/19 12/29/19 Range/Units 15:49 15:49 WBC 12.4 H (3.8-10.6) k/uL Neutrophils # 9.6 H (1.3-7.7) k/uL ESR 44 H (0-20) mm/hr BUN 34 H (7-17) mg/dL Glucose 105 H (74-99) mg/dL AST 90 H (14-36) U/L ALT 107 H (4-34) U/L C-Reactive Protein 178.3 H (<10.0) mg/L Assessment and Plan Assessment: 1-patient with her right forearm cat bite cellulitis this seemed to have failed to respond to outpatient oral Augmentin to more likely because of the burden of disease clinically behaving as a deep abscess or any injury to the deep tendon or tissue (1) 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 Current Visit: Yes Status: Acute Code(s): L03.90 - CELLULITIS, UNSPECIFIED; A28.0 - PASTEURELLOSIS; W55.01XA - BITTEN BY CAT, INITIAL ENCOUNTER SNOMED Code(s): 687244222 (2) Right forearm cellulitis Current Visit: Yes Status: Acute Code(s): L03.113 - CELLULITIS OF RIGHT UPPER LIMB SNOMED Code(s): 97365595 Plan: 1-we will increase Unasyn to 3 g every 6 hours 2-marked the area of the redness 3-Jeromy wrap to the right wrist and forearm We will follow on clinical condition and cultures to further adjust medication if needed Thank you for this consultation will follow this patient with you Time with Patient: Greater than 30
[2019-12-31] MEDS: AMPICILLIN-SULBACTAM 3 GM in SODIUM CHLORIDE 0.9% 100 ML IVPB SCH ×5 (00:11→23:17)
[2019-12-31] MEDS: LISINOPRIL-HCTZ 20-12.5 MG 1 EACH TAB PO SCH ×2 (08:32→20:19)
[2019-12-31] MEDS: PANTOPRAZOLE 40 MG TABLET PO SCH (08:32)
[2019-12-31] MEDS: LABETALOL 100 MG TAB PO SCH ×2 (08:32→20:18)
--- NOTE | 2019-12-31 09:18 | P.PN ---
Subjective Progress Note Date: 12/31/19 Principal diagnosis: Cat bite right forearm This is a 69 year-old female who presented to the hospital 2 days ago after sustaining a cat bite at home. The patient was evaluated at the bedside today. The patient denies fever, chills, nausea, vomiting, abdominal pain, shortness of breath, and chest pain this morning. She states her pain is controlled at this time. She is currently receiving Unasyn. She states that she has noticed some swelling this morning in her hand. She states that Dr. Blair wants to keep her one more day for IV antibiotics. Infectious disease is also consulted, who increased the Unasyn yesterday. Objective - Vital Signs Vital signs: Vital Signs Temp 98.5 F 12/31/19 05:00 Pulse 77 12/31/19 05:00 Resp 16 12/31/19 05:00 BP 134/71 12/31/19 05:00 Pulse Ox 96 12/31/19 05:00 Intake & Output 12/30/19 12/31/19 12/31/19 18:59 06:59 18:59 Intake Total 1190 Balance 1190 Intake: Intake, IV Titration 300 Amount Ampicillin-Sulbactam 3 gm 300 In Sodium Chloride 0.9% 100 ml @ 200 mls/hr IVPB Q6HR [facility] Rx#:[id number] Oral 890 Other: Voiding Method Toilet Toilet # Voids 1 2 1 - Exam The patient is a 69-year-old female in no acute distress. She is alert and oriented 3. Exam of the right forearm reveals 2 puncture wounds to the mid dorsal forearm and one on the lateral aspect of the midforearm. No drainage pre sent. There is an area of induration either the bite sites but that seems to be improving. Erythema has improved and does not extend past the marked area at the elbow. There is no red streaking present. She is able to fully extend her fingers without significant pain. She has some stiffness to the fingers on flexion and is unable to make a full fist. Edema to the dorsal hand and fingers are present but not excessive. The forearm compartments are soft and only minimally tender. Neurological and circulatory status is intact. - Labs CBC & Chem 7: 12/29/19 15:49 12/29/19 15:49 Labs: Microbiology - Last 24 Hours (Table) 12/29/19 15:49 Blood Culture - Preliminary Blood No Growth after 24 hours Assessment and Plan (1) Cat bite Current Visit: Yes Status: Acute Code(s): W55.01XA - BITTEN BY CAT, INITIAL ENCOUNTER SNOMED Code(s): 439190819 (2) 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 Current Visit: Yes Status: Acute Code(s): L03.90 - CELLULITIS, UNSPECIFIED; A28.0 - PASTEURELLOSIS; W55.01XA - BITTEN BY CAT, INITIAL ENCOUNTER SNOMED Code(s): 949380937 (3) Right forearm cellulitis Current Visit: Yes Status: Acute Code(s): L03.113 - CELLULITIS OF RIGHT UPPER LIMB SNOMED Code(s): 42328881 Plan: The clinical findings were discussed with the patient. The case was discussed with Dr. Cota. The patient will remain in the hospital at least one more day for IV antibiotics. No surgical intervention is planned at this time as the patient is improving. Continue IV antibiotics per infectious disease. She will likely be discharged home on oral antibiotics if she continues to respond well to current treatment. We will continue to follow patient closely and make further recommendations as needed.
--- NOTE | 2019-12-31 11:34 | P.PN ---
Subjective This is a 69-year-old female patient of Dr. De Leon with past medical history of hypertension, migraine headaches, hyperlipidemia not on medication. Patient states that she feeds the neighborhood cats and was playing with a cat on Monday evening around 9 AM she had scratches/bite on her arm and she washed the area and applied antibiotic ointment and did not think much of it at the time. By Monday she had redness and swelling and contacted on-call physician and was started on Augmentin and took a total of 3 doses. In the morning she developed significant swelling to the right forearm with erythema and came into [facility] emergency center for evaluation. She was found to be afebrile, heart rate 83, blood pressure 137/75, pulse ox 96% on room air. WBC 12.4, sed rate 44. BUN 44 and creatinine 0.96. Blood sugar 105. Total bilirubin 0.9, AST 90, ALT 107, alkaline phosphatase 65. C-reactive protein 178.3. X-ray of the right forearm is negative. Patient has been admitted under orthopedics and we are consult for medical management. 12/30: Patient seen this morning sitting up in chair. Vital signs remained stable, patient is afebrile heart rate 77, respirations 16, blood pressure 134/71, pulse ox 96% on room air. Ortho and ID remain on the case, no plan for surgical intervention at this time. Plan for patient to stay 1 more night for IV Unasyn antibiotics with possible discharge tomorrow on oral Augmentin. Blood cultures show no growth after 24 hours. Review of Systems Constitutional: No fever, no chills, no night sweats. No weight change. No weakness, fatigue or lethargy. No daytime sleepiness. EENT: No headache. No blurred vision or double vision, no loss of vision. No loss of Hearing, no ringing in the ears, no dizziness. No nasal drainage or congestion. No epistaxis. No sore throat. Lungs: No shortness of breath, cough, no sputum production. No wheezing. Cardiovascular: No chest pain, no lower extremity edema. No palpitations. No paroxysmal nocturnal dyspnea. No orthopnea. No lightheadedness or dizziness. No syncopal episodes. Abdominal: No abdominal pain. No nausea, vomiting. No diarrhea. No constipation. No bloody or tarry stools.. No loss of appetite. Genitourinary: No dysuria, increased frequency, urgency. No urinary retention. Musculoskeletal: No myalgias. No muscle weakness, no gait dysfunction, no frequent falls. No back pain. No neck pain. Integumentary: Moderate edema to the right forearm including the wrist and fingers, decreased range of motion due to edema. Puncture sites from the mid forearm area. Neurologic: No aphasia. No facial droop. No change in mentation. No head injury. No headache. No paralysis. No paresthesia. Psychiatric: No depression. No anxiety. No mood swings. Endocrine: No abnormal blood sugars. No weight change. No excessive sweating or thirst. No cold intolerance. Physical Examination Gen: This is a 69-year-old female. She is resting bed appears to be comfortable and in no acute distress sitting in chair. HEENT: Head is atraumatic, normocephalic. Pupils equal, round. Sclerae is anicteric. NECK: Supple. No JVD. No lymphadenopathy. No thyromegaly. LUNGS: Clear to auscultation. No wheezes or rhonchi. No intercostal retractions. HEART: Regular rate and rhythm. No murmur. ABDOMEN: Soft. Bowel sounds are present. No masses. No tenderness. EXTREMITIES: No pedal edema. No calf tenderness. Moderate edema to the right forearm including the wrist and fingers which is improving, decreased range of motion due to edema. Puncture sites from the mid forearm area. Psoriatic change to the left thumb nail. NEUROLOGICAL: Patient is awake, alert and oriented x3. Cranial nerves 2 through 12 are grossly intact. Objective - Vital Signs Vital signs: Vital Signs Temp 98.5 F 12/31/19 05:00 Pulse 77 12/31/19 05:00 Resp 16 12/31/19 05:00 BP 134/71 12/31/19 05:00 Pulse Ox 96 12/31/19 05:00 Intake & Output 12/30/19 12/31/19 12/31/19 18:59 06:59 18:59 Intake Total 1190 Balance 1190 Intake: Intake, IV Titration 300 Amount Ampicillin-Sulbactam 3 gm 300 In Sodium Chloride 0.9% 100 ml @ 200 mls/hr IVPB Q6HR [facility] Rx#:[id number] Oral 890 Other: Voiding Method Toilet Toilet # Voids 1 2 1 - Labs CBC & Chem 7: 12/29/19 15:49 12/29/19 15:49 Labs: Microbiology - Last 24 Hours (Table) 12/29/19 15:49 Blood Culture - Preliminary Blood No Growth after 24 hours Assessment and Plan Assessment: Assessment and Plan 1. Right upper extremity cellulitis secondary to cat bite, failed treatment with Augmentin. Patient started on Unasyn. Tetanus status updated. Dilaudid, Tylenol or ibuprofen for pain. Consult with Dr. Irizarry. 2. Hypertension. Continue labetalol 50 mg twice daily, lisinopril hydrochlorothiazide one twice daily 3. Hyperlipidemia. Patient is not currently on a statin. 4. History of migraine headaches. 5. GI prophylaxis. Protonix. 6. DVT prophylaxis. SCDs and MATT hose. 7. COVID-19 infection not present. Patient will be admitted to the hospital for a minimum of 2 night stay. Discharge plan: home with self-care Impression and plan of care have been directed as dictated by the signing physician. Eliane Savage nurse practitioner acting as scribe for signing physician.
[2019-12-31] MEDS: MULTIVITAMINS, THERA 1 EACH TAB PO SCH (20:18)
--- NOTE | 2019-12-31 22:07 | PN ---
PROGRESS NOTE DATE OF SERVICE: 12/31/2019 REASON FOR FOLLOWUP: Right forearm cat bite with cellulitis. INTERVAL HISTORY: Patient is currently afebrile, has been breathing comfortably. Denies having any chest pain. No shortness of breath. No nausea, vomiting or abdominal pain. Still complaining of pain to the right forearm area. Currently no open wound or any drainage. PHYSICAL EXAMINATION: Blood pressure is 135/76, pulse of 77, temperature is 97.6. He is 100% on room air. General description is an elderly female lying in bed in no distress. Respiratory system: Unlabored breathing. Lungs are clear to auscultation anteriorly. Heart S1, S2. Regular rate and rhythm. Abdomen is soft, no tenderness. Right forearm swelling has minimally decreased. LABS: No new labs have been obtained today. DIAGNOSTIC IMPRESSION AND PLAN: Patient with right forearm cat bite cellulitis. The patient clinically responding to Unasyn. To continue to finish therapy with oral antibiotic. Continue supportive care. MMODL / IJN: [id number] /
[2020-01-01 04:07] VITALS: PULSE 72; TEMP 98
[2020-01-01] MEDS: AMPICILLIN-SULBACTAM 3 GM in SODIUM CHLORIDE 0.9% 100 ML IVPB SCH ×2 (05:07→13:13)
[2020-01-01] MEDS: LISINOPRIL-HCTZ 20-12.5 MG 1 EACH TAB PO SCH ×2 (08:10→08:12)
[2020-01-01] MEDS: LABETALOL 100 MG TAB PO SCH (08:10)
[2020-01-01] MEDS: PANTOPRAZOLE 40 MG TABLET PO SCH (08:11)
--- NOTE | 2020-01-01 10:33 | P.DS ---
Providers Date of admission: 12/29/19 17:06 Attending physician: Michaela Cota Consults: 12/29/19 16:53 Consult Physician Stat Consulting Provider: Werner Blair Consult Reason/Comments: Flexor tenosynovitis Do you want consulting provider notified?: Yes 12/29/19 23:42 Consult Physician Routine Consulting Provider: Roderick Irizarry Consult Reason/Comments: flexor tenosynoviits Do you want consulting provider notified?: Yes Primary care physician: Werner Blair [facility] Course: The patient presented on the day of admission as per their history and physical. She had sustained a cat bite at home and was started on outpatient Augmentin but was not having response and was having worsening of her cellulitis and infection at her forearm. She was evaluated by the emergency room and was having some concerns in regards to the possibility of infection at her tendon sheath. She did not demonstrate evidence of flexor tendon tenosynovitis when I saw her. She has been having cellulitis and a infection from her Bite on her forearm. She has a hematoma in the area but there did not seem to be any abscess formation or any indication for surgical intervention. She is having excellent response with IV antibiotics. She feels good she is not having numbness tingling fingers. She feels that she is moving her upper extremity quite well. She is having significant improvement. Physical Exam The bite site is clean dry and intact. There is minimal erythema no drainage. There is no purulence. I do not appreciate any abscess formation. There is no fluctuance. There is no streaking. There is some induration underneath the bite site which appears to be hematoma. Abdomen soft and nontender. Chest has good excursion with deep inspiration and expiration. The patient has active and passive range of motion intact at the upper and lower extremities. her motion at her hand and fingers is significantly improving.There is no acute change in neurologic status. Hospital Course cellulitis right forearm status post cat bite which is improving well with IV antibiotics The patient has been making good progress with the IV antibiotics. Be Augmentin initially did not help but she is now doing quite well and I think that she should continue with oral medications as per infectious disease and medicine. They have written perception for her already. I do not think that she denies any surgical intervention. She should do local wound care and may follow up next week with us for recheck evaluation. Her hand appears to be doing well but if she is having significant problems she can return to the hospital or call our office. The patient has been able to increase their mobilization. The patient has progressed appropriately. I think they are in good stable condition for discharge today. They will be sent home with appropriate prescriptions. I answered their questions to the best of my ability in a language that they can understand and they are agreeable with the plan. They will follow up as directed. Patient Condition at Discharge: Stable Plan - Discharge Summary Discharge Rx Participant: No New Discharge Prescriptions: New Ibuprofen [Motrin] 400 mg PO Q6HR PRN tab PRN Reason: Mild Pain Or Fever > 100.5 Acetaminophen Tab [Tylenol] 650 mg PO Q6HR PRN tab PRN Reason: Mild Pain Or Fever > 100.5 Continue Congaplex 1 cap PO BID Lisinopril-Hctz 20-12.5 mg [Zestoretic 20-12.5] 1 tab PO HS Labetalol [Trandate] 50 mg PO BID Amoxic-Pot Clav 875-125Mg [Augmentin 875-125] 1 tab PO BID@0300,1500 Multivit-Min/FA/Lycopen/Lutein [Centrum Silver Tablet] 1 tab PO HS Discharge Medication List Amoxic-Pot Clav 875-125Mg [Augmentin 875-125] 1 tab PO BID@0300,1500 12/29/19 [History] Congaplex 1 cap PO BID 12/29/19 [History] Labetalol [Trandate] 50 mg PO BID 12/29/19 [History] Lisinopril-Hctz 20-12.5 mg [Zestoretic 20-12.5] 1 tab PO HS 12/29/19 [History] Multivit-Min/FA/Lycopen/Lutein [Centrum Silver Tablet] 1 tab PO HS 12/29/19 [History] Acetaminophen Tab [Tylenol] 650 mg PO Q6HR PRN tab 01/01/20 [Rx] Ibuprofen [Motrin] 400 mg PO Q6HR PRN tab 01/01/20 [Rx] Follow up Appointment(s)/Referral(s): Michaela Cota DO [Doctor of Osteopathic Medicine] - 01/07/20 3:45 pm Werner Blair MD [Primary Care Provider] - 01/03/20 11:30 am Patient Instructions/Handouts: Animal Bite (ED) Activity/Diet/Wound Care/Special Instructions: She will be admitted Discharge Disposition: HOME SELF-CARE
--- NOTE | 2020-01-01 11:01 | P.PN ---
Subjective Progress Note Date: 01/01/20 This is a 69-year-old female patient of Dr. De Leon with past medical history of hypertension, migraine headaches, hyperlipidemia not on medication. Patient states that she feeds the neighborhood cats and was playing with a cat on Monday evening around 9 AM she had scratches/bite on her arm and she washed the area and applied antibiotic ointment and did not think much of it at the time. By Monday she had redness and swelling and contacted on-call physician and was started on Augmentin and took a total of 3 doses. In the morning she developed significant swelling to the right forearm with erythema and came into [facility] emergency center for evaluation. She was found to be afebrile, heart rate 83, blood pressure 137/75, pulse ox 96% on room air. WBC 12.4, sed rate 44. BUN 44 and creatinine 0.96. Blood sugar 105. Total bilirubin 0.9, AST 90, ALT 107, alkaline phosphatase 65. C-reactive protein 178.3. X-ray of the right forearm is negative. Patient has been admitted under orthopedics and we are consult for medical management. 12/30: Patient seen this morning sitting up in chair. Vital signs remained stable, patient is afebrile heart rate 77, respirations 16, blood pressure 134/71, pulse ox 96% on room air. Ortho and ID remain on the case, no plan for surgical intervention at this time. Plan for patient to stay 1 more night for IV Unasyn antibiotics with possible discharge tomorrow on oral Augmentin. Blood cultures show no growth after 24 hours. 12/31: Patient was seen and examined sitting up in chair this morning, right arm improving with less edema noted today. Vital signs remained stable. Plan for discharge home if okay with orthopedics. We'll resume Augmentin [id number] one tab by mouth twice a day patient to follow-up in the office on Monday, and with orthopedics next week. Patient will notify our office with any concerns sooner. Review of Systems Constitutional: No fever, no chills, no night sweats. EENT: No headache. No blurred vision or double vision, no loss of vision. No loss of Hearing, no ringing in the ears, no dizziness. Lungs: No shortness of breath, cough, no sputum production. No wheezing. Cardiovascular: No chest pain, no lower extremity edema. No palpitations. No paroxysmal nocturnal dyspnea. No orthopnea. No lightheadedness or dizziness. No syncopal episodes. Abdominal: No abdominal pain. No nausea, vomiting. No diarrhea. No constipation. No bloody or tarry stools.. No loss of appetite. Genitourinary: No dysuria, increased frequency, urgency. No urinary retention. Musculoskeletal: No myalgias. No muscle weakness, no gait dysfunction, no frequent falls. No back pain. No neck pain. Integumentary: Mild edema to the right forearm including the wrist and fingers, improving range of motion due to edema. Puncture sites from the mid forearm area. Neurologic: No aphasia. No facial droop. No change in mentation. No head injury. No headache. No paralysis. No paresthesia. Psychiatric: No depression. No anxiety. No mood swings. Endocrine: No abnormal blood sugars. No weight change. No excessive sweating or thirst. No cold intolerance. Physical Examination Gen: This is a 69-year-old female. She is resting bed appears to be comfortable and in no acute distress sitting in chair. HEENT: Head is atraumatic, normocephalic. Pupils equal, round. Sclerae is anicteric. NECK: Supple. No JVD. No lymphadenopathy. No thyromegaly. LUNGS: Clear to auscultation. No wheezes or rhonchi. No intercostal retractions. HEART: Regular rate and rhythm. No murmur. ABDOMEN: Soft. Bowel sounds are present. No masses. No tenderness. EXTREMITIES: No pedal edema. No calf tenderness. Moderate edema to the right forearm including the wrist and fingers which is improving, decreased range of motion due to edema. Puncture sites from the mid forearm area. Psoriatic change to the left thumb nail. NEUROLOGICAL: Patient is awake, alert and oriented x3. Cranial nerves 2 through 12 are grossly intact. Objective - Vital Signs Vital signs: Vital Signs Temp 98.0 F 01/01/20 04:05 Pulse 72 01/01/20 04:05 Resp 18 01/01/20 04:05 BP 152/81 01/01/20 04:05 Pulse Ox 97 01/01/20 04:05 Intake & Output 12/31/19 01/01/20 01/01/20 18:59 06:59 18:59 Intake Total 700 1380 Balance 700 1380 Intake: Intake, IV Titration 200 Amount Ampicillin-Sulbactam 3 gm 200 In Sodium Chloride 0.9% 100 ml @ 200 mls/hr IVPB Q6HR [facility] Rx#:[id number] Oral 700 1180 Other: Voiding Method Toilet Toilet # Voids 2 2 # Bowel Movements 1 - Labs CBC & Chem 7: 12/29/19 15:49 12/29/19 15:49 Labs: Microbiology - Last 24 Hours (Table) 12/29/19 15:49 Blood Culture - Preliminary Blood No Growth after 48 hours Assessment and Plan Assessment: Assessment and Plan 1. Right upper extremity cellulitis secondary to cat bite, 2. Hypertension. 3. Hyperlipidemia. 4. History of migraine headaches. 5. GI prophylaxis. 6. DVT prophylaxis. 7. COVID-19 infection not present. Discharge plan: home with self-care Impression and plan of care have been directed as dictated by the signing physician. Eliane Savage nurse practitioner acting as scribe for signing physician.
[2020-01-01 11:18] VITALS: BP 153/88; RESP 17
--- NOTE | 2020-01-01 12:51 | PN ---
PROGRESS NOTE DATE OF SERVICE: 01/01/2020 REASON FOR FOLLOWUP: Right forearm cat bite cellulitis. INTERVAL HISTORY: Patient is seen on rounds this morning. The patient has been afebrile, feeling better, breathing comfortably. Overall pain and discomfort to the right forearm has decreased. Denies having any chest pain. No shortness of breath. No cough. No abdominal pain or diarrhea. PHYSICAL EXAMINATION: Blood pressure 152/81 with a pulse of 73, temperature 98, he is 97% on room air. General description is an elderly female, up in the room in no distress. RESPIRATORY SYSTEM: Unlabored breathing, clear to auscultation anteriorly. HEART: S1, S2. Regular rate and rhythm. ABDOMEN: Soft, no tenderness. Right forearm overall swelling and redness have much improved. DIAGNOSTIC IMPRESSION AND PLAN: Patient with right forearm cellulitis, cat bite in this patient who seemed to have shown overall clinical improvement. She will finish therapy with oral Augmentin in the patient for about a week. Continue supportive care. MMODL / IJN: [id number] /
== END 2020-01-01 13:30 | disposition home or self-care (01) | DRG 603 ==
LOC: EC 15:11 → 5NMEDONC 17:06
PROVIDERS: ADMIT Orthopaedic Surgery Orthopaedic Surgery of the Spine; ATTEND Orthopaedic Surgery Orthopaedic Surgery of the Spine
DX: L03.113 Cellulitis of right upper limb (principal); I10 Essential (primary) hypertension; E78.5 Hyperlipidemia, unspecified; G43.909 Migraine, unspecified, not intractable, without status migrainosus; B96.89 Other specified bacterial agents as the cause of diseases classified elsewhere; Z11.59 Encounter for screening for other viral diseases; W55.01XA Bitten by cat, initial encounter; Y92.009 Unspecified place in unspecified non-institutional (private) residence as the place of occurrence of the external cause; Z79.899 Other long term (current) drug therapy; Z90.89 Acquired absence of other organs; Z98.890 Other specified postprocedural states; Z83.3 Family history of diabetes mellitus; Z80.52 Family history of malignant neoplasm of bladder; Z82.49 Family history of ischemic heart disease and other diseases of the circulatory system; Z82.61 Family history of arthritis
CPT/HCPCS: 36415; 80053; 83605; 85025; 85610; 85652; 85730; 86140; 87040; 90715; 96365; 96367; 96375; 99284

== ENCOUNTER 2022-08-14 20:33 | Emergency (ER) | payer MEDICARE ==
[2022-08-14 20:53] VITALS: PULSE 73; TEMP 98.5
[2022-08-14] MEDS ORDERED: SODIUM CHLORIDE 0.9% 500 ML 500 ML IV STA (21:10)
[2022-08-14 21:55] LABS: Basophils # (A) 0.1 k/uL (0-0.2); Basophils % (A) 1 %; Eosinophils # (A) 0.4 k/uL (0-0.7); Eosinophils % (A) 5 %; HCT 36.4 % (34.0-46.0); HGB 12.1 gm/dL (11.4-16.0); Lymphocytes # (A) 1.1 k/uL (1.0-4.8); Lymphocytes % (A) 14 %; MCH 30.6 pg (25.0-35.0); MCHC 33.2 g/dL (31.0-37.0); MCV 92.1 fL (80.0-100.0); Mean Platelet Volume 7.4; Monocytes # (A) 0.9 k/uL (0-1.0); Monocytes % (A) 10 %; Neutrophils # (A) 5.8 k/uL (1.3-7.7); Neutrophils % (A) 69 %; Platelet Count 132 k/uL (150-450); RBC 3.95 m/uL (3.80-5.40); WBC 8.4 k/uL (3.8-10.6)
[2022-08-14 21:59] LABS: Partial Thromboplastin Time 24.1 sec (22.0-30.0); Prothrombin Time 10.4 sec (9.0-12.0)
[2022-08-14 22:07] LABS: Albumin 4.6 g/dL (3.5-5.0); Calcium 9.2 mg/dL (8.4-10.2); Potassium 3.6 mmol/L (3.5-5.1); Total Bilirubin 0.4 mg/dL (0.2-1.3); Total Protein 7.5 g/dL (6.3-8.2)
[2022-08-14 22:11] LABS: Appearance,Urine Clear (Clear); Bacteria,Urine Occasional /hpf; Bilirubin,Urine Negative (Negative); Blood,Urine Large (Negative); Color,Urine Light Yellow; Glucose,Urine (UA) Negative (Negative); Hyaline Casts,Urine 1 /lpf (0-2); Ketones,Urine Negative (Negative); Leukocyte Esterase,Urine Small (Negative); Nitrite,Urine Negative (Negative); PH, Urine 6.5 (5.0-8.0); Protein,Urine Negative (Negative); RBC,Urine 13 /hpf (0-5); Specific Gravity,Urine 1.007 (1.001-1.035); Squamous Epithelial Cell,Urine <1 /hpf (0-4); Urobilinogen,Urine <2.0 mg/dL (<2.0); WBC,Urine 4 /hpf (0-5)
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
--- NOTE | 2022-08-14 22:31 | XR ---
EXAMINATION TYPE: XR foot complete RT DATE OF EXAM: 08/14/2022 COMPARISON: NONE HISTORY: Pain TECHNIQUE: 3 views FINDINGS: Metatarsals are intact. No fracture or dislocation. There are no erosions. Tarsal bones are intact IMPRESSION: Negative right foot exam. No fracture.
--- NOTE | 2022-08-14 22:31 | XR ---
EXAMINATION TYPE: XR chest 2V DATE OF EXAM: 08/14/2022 COMPARISON: 06/26/2017 HISTORY: Syncope TECHNIQUE: 2 views FINDINGS: Heart and mediastinum are normal. Lungs are clear of infiltrate. No heart failure. There ar e no hilar masses. The bony thorax is intact. IMPRESSION: No active cardiopulmonary disease. No change.
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
[2022-08-14 23:41] VITALS: BP 145/81; RESP 18
== END 2022-08-15 | disposition home or self-care (01) ==
LOC: EC 20:33
DX: S93.601A Unspecified sprain of right foot, initial encounter (principal); R55 Syncope and collapse; I10 Essential (primary) hypertension; X58.XXXA Exposure to other specified factors, initial encounter; Y92.22 Religious institution as the place of occurrence of the external cause
CPT/HCPCS: 36415; 70450; 70486; 71046; 72125; 80053; 81001; 83735; 84484; 85025; 85610; 85730; 93005; 96360; 99284

== ENCOUNTER → 2022-12-06 | Outpatient (CLI) | payer MEDICARE ==
[2022-12-06 16:42] LABS: Chol/HDL Ratio 2.25 Ratio; LDL Cholesterol,Calculated 72.1 mg/dL (0.0-131.0); VLDL Calculation 12.26 mg/dL (5.00-40.00)
== END | disposition home or self-care (01) ==
LOC: LABWHC1 10:39
PROVIDERS: ATTEND Nurse Practitioner Adult Health
DX: E78.5 Hyperlipidemia, unspecified (principal)
CPT/HCPCS: 36415; 80061

== ENCOUNTER 2024-03-10 15:41 | Emergency (ER) | payer MEDICARE ==
[2024-03-10 15:57] VITALS: RESP 18; TEMP 98.7
--- NOTE | 2024-03-10 16:17 | ED ---
Abdominal Pain HPI - General Chief Complaint: Abdominal Pain Stated Complaint: apendecitis Time Seen by Provider: 03/10/24 16:15 Source: patient, RN notes reviewed Mode of arrival: ambulatory Limitations: no limitations - History of Present Illness Initial Comments: 73-year-old female presenting to the ER with a chief complaint of abdominal pain. Patient states for approximately 1 week she has been experiencing right lower quadrant abdominal pain. She states this is sharp and stabbing in nature. She states it is worse with standing and movement. After resting pain does improve. She does report recent nausea and 1 episode of vomiting. She denies any hematic emesis. Patient denies any diarrhea, melena or hematochezia. She does report recent constipation which improved after Metamucil. Denies any fevers or chills. Patient states she was seen at urgent care prior to arrival and was sent to the emergency department to rule out appendicitis. - Related Data Home Medications Medication Instructions Recorded Confirmed Labetalol [Trandate] 100 mg PO DAILY 12/29/19 03/10/24 Lisinopril-Hctz 20-12.5 mg 1 tab PO HS 12/29/19 03/10/24 [Zestoretic 20-12.5] Acetaminophen Tab [Tylenol Tab] 500 - 1,000 mg PO Q6HR PRN 03/10/24 03/10/24 Balance Of Nature Fruits 3 cap PO HS 03/10/24 03/10/24 Balance Of Nature Veggies 3 cap PO HS 03/10/24 03/10/24 Labetalol [Trandate] 50 mg PO HS 03/10/24 03/10/24 Multivitamins, Thera [Multivitamin 1 tab PO BID 03/10/24 03/10/24 (formulary)] Rosuvastatin [Crestor] 20 mg PO HS 03/10/24 03/10/24 Previous Rx's Medication Instructions Recorded Cephalexin [Keflex] 500 mg PO Q6HR #40 cap 03/10/24 Allergies Allergy/AdvReac Type Severity Reaction Status Date / Time No Known Allergies Allergy Verified 03/10/24 19:13 Review of Systems ROS Statement: Those systems with pertinent positive or pertinent negative responses have been documented in the HPI. ROS Other: All systems not noted in ROS Statement are negative. Past Medical History Past Medical History: Hypertension Additional Past Medical History / Comment(s): pt has hx of migraines History of Any Multi-Drug Resistant Organisms: None Reported Past Surgical History: Hernia Repair, Tonsillectomy Past Psychological History: No Psychological Hx Reported Smoking Status: Never smoker Past Alcohol Use History: None Reported Past Drug Use History: None Reported General Exam Limitations: no limitations General appearance: alert, in no apparent distress Respiratory exam: Present: normal lung sounds bilaterally. Absent: respiratory distress, wheezes, rales, rhonchi, stridor Cardiovascular Exam: Present: regular rate, normal rhythm, normal heart sounds. Absent: systolic murmur, diastolic murmur, rubs, gallop, clicks GI/Abdominal exam: Present: soft, tenderness (right lumbar quadrant), normal bowel sounds Neurological exam: Present: alert, oriented X3, CN II-XII intact Skin exam: Present: warm, dry, intact, normal color. Absent: rash Course Vital Signs 03/10/24 03/10/24 15:54 19:50 Temperature 98.7 F Pulse Rate 91 85 Respiratory 18 18 Rate Blood Pressure 129/68 124/79 O2 Sat by Pulse 100 99 Oximetry - Reevaluation(s) Reevaluation #1: 03/10/24 19:[address] Blair. He was agreeable with either inpatient or outpatient follow-up. He stated if outpatient follow-up the patient is to follow-up within 48 hours in his office. Medical Decision Making - Medical Decision Making Was pt. sent in by a medical professional or institution (, PA, HOME VISITOR, urgent care, hospital, or penitentiary...) When possible be specific @ -Patient sent from urgent care to rule out appendicitis due to right sided abdominal pain Did you speak to anyone other than the patient for history (EMS, parent, family, police, friend...)? What history was obtained from this source @ -No Did you review nursing and triage notes (agree or disagree)? Why? @ -I reviewed and agree with nursing and triage notes Were old charts reviewed (outside hosp., previous admission, EMS record, old EKG, old radiological studies, urgent care reports/EKG's, penitentiary records)? Report findings @ -No old charts were reviewed Differential Diagnosis (chest pain, altered mental status, abdominal pain women, abdominal pain men, vaginal bleeding, weakness, fever, dyspnea, syncope, headache, dizziness, GI bleed, back pain, seizure, CVA, palpatations, mental health, musculoskeletal)? @ -[Differential Abdominal Pain Women: Appendicitis, Cholecystitis, diverticulosis, ischemic bowel, pancreatitis, hepatitis, UTI, gastroenteritis, AAA, incarcerated hernia, bowel obstruction, constipation, inflammatory bowel, hepatitis, peptic ulcer disease, splenic infarction, perforated viscus, vulvitis, ovarian torsion, PID, kidney stone, placenta abruption, this is not meant to be an all-inclusive list EKG interpreted by me (3pts min.). @ - None done X-rays interpreted by me (1pt min.). @ -None done CT interpreted by me (1pt min.). @ -[CT abdomen pelvis showing moderate right hydronephrosis and hydroureter to the pelvic inlet. No obstructing etiology identified. Appendix not identified. Small right pleural effusion. Small amount of free fluid within the pelvis. U/S interpreted by me (1pt. min.). @ -None done What testing was considered but not performed or refused? (CT, X-rays, U/S, labs)? Why? @ -None What meds were considered but not given or refused? Why? @ -Patient refused analgesic medications. Did you discuss the management of the patient with other professionals (pr ofessionals i.e. , PA, HOME VISITOR, lab, RT, psych nurse, aids social worker, senior enterprise architect, teacher, disability insurance hearing officer, case repairer)? Give summary @ -Yes, case was discussed with Dr. Blair. He advised on inpatient or outpatient management based on clinical appearrance. If outpatient management, patient is to follow-up with him in office within 48 hours. Was smoking cessation discussed for >3mins.? @ -No Was critical care preformed (if so, how long)? @ -No Were there social determinants of health that impacted care today? How? (Homelessness, low income, unemployed, alcoholism, drug addiction, transportation, low edu. Level, literacy, decrease access to med. care, penitentiary, rehab)? @ -No Was there de-escalation of care discussed even if they declined (Discuss DNR or withdrawal of care, Hospice)? DNR status @ -No What co-morbidities impacted this encounter? (DM, HTN, Smoking, COPD, CAD, Cancer, CVA, ARF, Chemo, Hep., AIDS, mental health diagnosis, sleep apnea, morbid obesity)? @ -Chronic kidney disease Was patient admitted / discharged? Hospital course, mention meds given and route, prescriptions, significant lab abnormalities, going to OR and other pertinent info. @ -[Discharge. 73-year-old female presenting to the ER with a chief complaint of right sided abdominal pain x 1 week. History and physical exam completed. Vitals within normal limits. Patient in no signs of acute distress and nont oxic-appearing. Focal tenderness to right lumbar quadrant. Normal bowel sounds. No rebound or guarding. Laboratory studies and CT abdomen pelvis will be obtained. Laboratory studies showing a leukocytosis of 11.5 with a left shift. Normocytic normochromic anemia hemoglobin 10.8 which appears to be chronic in nature likely due to CKD. GFR 44 with a BUN of 54 and creatinine 1.24. Urinalysis concerning of infection with many bacteria, greater than 182 WBCs, nitrate positive and large leukocyte esterases. Urine sent for culture. CT abdomen pelvis performed and showing moderate right hydronephrosis and hydroureter and in the pelvic inlet. No obstructing etiology identified. Appendix not identified with no surrounding evidence of appendicitis. Small right pleural effusion and small amount of free fluid in the pelvis. Patient given 1 L IV fluids and 1 g IVP Rocephin in the ER. Patient refused analgesic medications. Due to patient's history of chronic kidney disease and urinary tract infection Case was discussed with her primary care physician, Dr. Blair. He advised on inpatient or outpatient management based on patient's clinical appearance. If outpatient management, patient has to follow-up with him within 48 hours. Upon reevaluation, patient resting comfortably in exam room no signs of acute distress and nontoxic-appearing. Patient not reporting any current pain. Based on patient's clinical appearance and ability to follow-up closely outpatient I believe patient is stable for discharge and outpatient management. Patient will be started on Keflex for UTI. Urology referral given. Strict return parameters discussed. Patient discharged in stable condition with follow-up to PCP. Patient verbally expressed understanding and agreement with care plan. Case discussed with ED attending, Dr. Marion. Undiagnosed new problem with uncertain prognosis? @ -No Drug Therapy requiring intensive monitoring for toxicity (Heparin, Nitro, Insulin, Cardizem)? @ -No Were any procedures done? @ -No Diagnosis/symptom? @ -UTI/CKD Acute, or Chronic, or Acute on Chronic? @ -Acute Uncomplicated (without systemic symptoms) or Complicated (systemic symptoms)? @ -Complicated Side effects of treatment? @ -No Exacerbation, Progression, or Severe Exacerbation? @ -No Poses a threat to life or bodily function? How? (Chest pain, USA, CT, pneumonia, PE, COPD, DKA, ARF, appy, cholecystitis, CVA, Diverticulitis, Homicidal, Suicidal, threat to staff... and all critical care pts) @ -Low at this time. UTI can leas to sepsis and end organ dysfunction. - Lab Data Result diagrams: 03/10/24 16:14 03/10/24 16:14 Lab Results 03/10/24 03/10/24 03/10/24 Range/Units 16:14 16:14 16:14 WBC 11.5 H (3.8-10.6) k/uL RBC 3.59 L (3.80-5.40) m/uL Hgb 10.8 L (11.4-16.0) gm/dL Hct 33.1 L (34.0-46.0) % MCV 92.4 (80.0-100.0) fL MCH 30.2 (25.0-35.0) pg MCHC 32.7 (31.0-37.0) g/dL RDW 12.7 (11.5-15.5) % Plt Count 245 (150-450) k/uL MPV 7.0 Neutrophils % 81 % Lymphocytes % 8 % Monocytes % 8 % Eosinophils % 1 % Basophils % 0 % Neutrophils # 9.3 H (1.3-7.7) k/uL Lymphocytes # 0.9 L (1.0-4.8) k/uL Monocytes # 0.9 (0-1.0) k/uL Eosinophils # 0.1 (0-0.7) k/uL Basophils # 0.0 (0-0.2) k/uL Sodium 137 (137-145) mmol/L Potassium 4.1 (3.5-5.1) mmol/L Chloride 105 (98-107) mmol/L Carbon Dioxide 22 (22-30) mmol/L Anion Gap 10 mmol/L BUN 54 H (7-17) mg/dL Creatinine 1.24 H (0.52-1.04) mg/dL Est GFR (CKD-EPI)AfAm 51 (>60 ml/min/1.73 sqM) Est GFR (CKD-EPI)NonAf 44 (>60 ml/min/1.73 sqM) Glucose 94 (74-99) mg/dL Plasma Lactic Acid Vainash (0.7-2.0) mmol/L Calcium 9.2 (8.4-10.2) mg/dL Total Bilirubin 0.5 (0.2-1.3) mg/dL AST 22 (14-36) U/L ALT 16 (4-34) U/L Alkaline Phosphatase 87 (38-126) U/L Total Protein 6.5 (6.3-8.2) g/dL Albumin 3.8 (3.5-5.0) g/dL Amylase 47 (30-110) U/L Lipase 82 (23-300) U/L Urine Color Light Yellow Urine Appearance Turbid H (Clear) Urine pH 5.5 (5.0-8.0) Ur Specific [place] 1.015 (1.001-1.035) Urine Protein 1+ H (Negative) Urine Glucose (UA) Negative (Negative) Urine Ketones Negative (Negative) Urine Blood Large H (Negative) Urine Nitrite Positive H (Negative) Urine Bilirubin Negative (Negative) Urine Urobilinogen <2.0 (<2.0) mg/dL Ur Leukocyte Esterase Large H (Negative) Urine RBC 23 H (0-5) /hpf Urine WBC >182 H (0-5) /hpf Urine WBC Clumps Many H (None) /hpf Urine Bacteria Many H (None) /hpf Urine Mucus Rare H (None) /hpf 03/10/24 Range/Units 16:14 WBC (3.8-10.6) k/uL RBC (3.80-5.40) m/uL Hgb (11.4-16.0) gm/dL Hct (34.0-46.0) % MCV (80.0-100.0) fL MCH (25.0-35.0) pg MCHC (31.0-37.0) g/dL RDW (11.5-15.5) % Plt Count (150-450) k/uL MPV Neutrophils % % Lymphocytes % % Monocytes % % Eosinophils % % Basophils % % Neutrophils # (1.3-7.7) k/uL Lymphocytes # (1.0-4.8) k/uL Monocytes # (0-1.0) k/uL Eosinophils # (0-0.7) k/uL Basophils # (0-0.2) k/uL Sodium (137-145) mmol/L Potassium (3.5-5.1) mmol/L Chloride (98-107) mmol/L Carbon Dioxide (22-30) mmol/L Anion Gap mmol/L BUN (7-17) mg/dL Creatinine (0.52-1.04) mg/dL Est GFR (CKD-EPI)AfAm (>60 ml/min/1.73 sqM) Est GFR (CKD-EPI)NonAf (>60 ml/min/1.73 sqM) Glucose (74-99) mg/dL Plasma Lactic Acid Avinash 1.1 (0.7-2.0) mmol/L Calcium (8.4-10.2) mg/dL Total Bilirubin (0.2-1.3) mg/dL AST (14-36) U/L ALT (4-34) U/L Alkaline Phosphatase (38-126) U/L Total Protein (6.3-8.2) g/dL Albumin (3.5-5.0) g/dL Amylase (30-110) U/L Lipase (23-300) U/L Urine Color Urine Appearance (Clear) Urine pH (5.0-8.0) Ur Specific [place] (1.001-1.035) Urine Protein (Negative) Urine Glucose (UA) (Negative) Urine Ketones (Negative) Urine Blood (Negative) Urine Nitrite (Negative) Urine Bilirubin (Negative) Urine Urobilinogen (<2.0) mg/dL Ur Leukocyte Esterase (Negative) Urine RBC (0-5) /hpf Urine WBC (0-5) /hpf Urine WBC Clumps (None) /hpf Urine Bacteria (None) /hpf Urine Mucus (None) /hpf Disposition Clinical Impression: UTI (urinary tract infection), Chronic kidney disease (CKD) Disposition: HOME SELF-CARE Condition: Stable Instructions (If sedation given, give patient instructions): Urinary Tract I nfection in Women (ED) Additional Instructions: Complete full course of Keflex. You received 1 g IV Rocephin prior to discharge. I spoke with who would like you to follow-up with him in office within 48 hours. I also recommend follow-up with urology. You may take [id number] Tylenol for pain control. Return to the ER for any new or worsening symptoms. Prescriptions: Cephalexin [Keflex] 500 mg PO Q6HR #40 cap Is patient prescribed a controlled substance at d/c from ED?: No Referrals: Werner Blair MD [Primary Care Provider] - 1-2 days Bryant Lechuga MD [STAFF PHYSICIAN] - 1-2 days Time of Disposition: 19:46
[2024-03-10] MEDS: SODIUM CHLORIDE 0.9% 1,000 ML IV STA (16:55)
[2024-03-10 17:21] LABS: Basophils % (A) 0 %; Eosinophils # (A) 0.1 k/uL (0-0.7); Eosinophils % (A) 1 %; HCT 33.1 % (34.0-46.0); HGB 10.8 gm/dL (11.4-16.0); Lymphocytes # (A) 0.9 k/uL (1.0-4.8); Lymphocytes % (A) 8 %; MCH 30.2 pg (25.0-35.0); MCHC 32.7 g/dL (31.0-37.0); MCV 92.4 fL (80.0-100.0); Monocytes # (A) 0.9 k/uL (0-1.0); Monocytes % (A) 8 %; Neutrophils # (A) 9.3 k/uL (1.3-7.7); Neutrophils % (A) 81 %; Platelet Count 245 k/uL (150-450); RBC 3.59 m/uL (3.80-5.40); RDW 12.7 % (11.5-15.5); WBC 11.5 k/uL (3.8-10.6)
[2024-03-10 17:37] LABS: ALT 16 U/L (4-34); AST 22 U/L (14-36); African American GFR (CKD) 51 (>60 ml/min/1.73 sqM); Albumin 3.8 g/dL (3.5-5.0); Alkaline Phosphatase 87 U/L (38-126); Amylase 47 U/L (30-110); Anion Gap 10 mmol/L; Blood Urea Nitrogen 54 mg/dL (7-17); Calcium 9.2 mg/dL (8.4-10.2); Carbon Dioxide 22 mmol/L (22-30); Chloride 105 mmol/L (98-107); Glucose 94 mg/dL (74-99); Lipase 82 U/L (23-300); Non-African American GFR(CKD) 44 (>60 ml/min/1.73 sqM); Potassium 4.1 mmol/L (3.5-5.1); Sodium 137 mmol/L (137-145); Total Bilirubin 0.5 mg/dL (0.2-1.3); Total Protein 6.5 g/dL (6.3-8.2)
[2024-03-10 17:38] LABS: Appearance,Urine Turbid (Clear); Bacteria,Urine Many /hpf; Bilirubin,Urine Negative (Negative); Blood,Urine Large (Negative); Color,Urine Light Yellow; Glucose,Urine (UA) Negative (Negative); Ketones,Urine Negative (Negative); Leukocyte Esterase,Urine Large (Negative); Mucus,Urine Rare /hpf; Nitrite,Urine Positive (Negative); PH, Urine 5.5 (5.0-8.0); Protein,Urine 1+ (Negative); RBC,Urine 23 /hpf (0-5); Specific Gravity,Urine 1.015 (1.001-1.035); Urobilinogen,Urine <2.0 mg/dL (<2.0); WBC,Urine >182 /hpf (0-5)
[2024-03-10] MEDS: cefTRIAXone IN SWFI 1,000 MG/10 ML SYRINGE IVP STA (18:39)
--- NOTE | 2024-03-10 18:56 | CT ---
EXAMINATION TYPE: CT abdomen pelvis w con DATE OF EXAM: 03/10/2024 COMPARISON: None INDICATION: RLQ abdominal pain. DLP: 562.2 mGycm, Automated exposure control for dose reduction was used. CONTRAST: 80 ml mL of Isovue 300. Study performed without Oral Contrast TECHNIQUE: Axial images were obtained from above the diaphragm to the pubic rami in the axial plane a t 5 mm thick sections. Reconstructed images are reviewed on the computer in the coronal plane. FINDINGS: Limited CT sections are obtained the lung bases. There is small right pleural effusion. CT ABDOMEN: Liver: Normal Spleen: Normal Pancreas: Normal Adrenal glands: The adrenal glands are normal. Gallbladder: Normal Kidneys: No masses are evident. There is a moderate right hydronephrosis with dilated calyces and wily al pelvis.. Dilated ureter extends to the pelvic inlet. Obstructing etiology is not identified. Dista l ureter appears nondilated. No cysts are present. Delayed images were obtained through the kidneys, which remain unremarkable. Aorta: There is some tortuosity of the aorta. No dilatation is evident. Vascular calcifications throu gh the aorta. Inferior vena cava: Normal. CT PELVIS: Some free fluid is within the posterior pelvis Loops of bowel within the abdomen and pelvis are normal. Fecal debris is within the colon. Study is without oral contrast limiting bowel evaluation. Appendix: Not identified. No suspicious dilated tubular structure or inflammatory changes evident Urinary bladder: Normal. Genitourinary structures: Uterus appears normal. Adnexa appear normal. Osseous structures: No suspicious lytic or sclerotic lesions. Scoliosis within the lumbar spine degen erative disc changes present through the lumbar spine. IMPRESSION: 1. Moderate right hydronephrosis and hydroureter to the pelvic inlet. An obstructing etiology is not identified. 2. The appendix is not identified. Clinical management of any suspected appendicitis will be required . 3. Small right pleural effusion. Small amount of free fluid within the pelvis. [facility], , 03/10/2024 6:54 PM
[2024-03-10 19:52] VITALS: BP 124/79; PULSE 85
== END 2024-03-10 20:05 | disposition home or self-care (01) ==
LOC: EC 15:41
CPT/HCPCS: 36415; 74177; 80053; 81001; 82150; 83605; 83690; 85025; 87077; 87086; 87186; 96361; 96374; 99284

== ENCOUNTER 2024-04-08 20:44 | Inpatient (IN) | payer MEDICARE ==
[2024-04-08] MEDS: MAG HYDROX/AL HYDROX/SIMETH 30 ML, HYOSCYAMINE ELIXIR 10 ML PO STA (21:41)
[2024-04-08 22:07] LABS: Basophils # (A) 0.1 k/uL (0-0.2); Basophils % (A) 1 %; Eosinophils # (A) 0.1 k/uL (0-0.7); Eosinophils % (A) 1 %; HGB 11.3 gm/dL (11.4-16.0); Lymphocytes # (A) 0.9 k/uL (1.0-4.8); Lymphocytes % (A) 9 %; MCH 29.8 pg (25.0-35.0); MCHC 33.3 g/dL (31.0-37.0); MCV 89.6 fL (80.0-100.0); Mean Platelet Volume 7.6; Monocytes # (A) 0.7 k/uL (0-1.0); Monocytes % (A) 7 %; Neutrophils # (A) 8.5 k/uL (1.3-7.7); Neutrophils % (A) 82 %; Platelet Count 191 k/uL (150-450); RBC 3.79 m/uL (3.80-5.40); RDW 12.9 % (11.5-15.5); WBC 10.4 k/uL (3.8-10.6)
[2024-04-08] MEDS: SODIUM CHLORIDE 0.9% 1,000 ML IV STA (22:18)
[2024-04-08] MEDS: ONDANSETRON 4 MG/2 ML VIAL IVP STA (22:19)
[2024-04-08 22:23] LABS: ALT 21 U/L (4-34); AST 37 U/L (14-36); African American GFR (CKD) 22 (>60 ml/min/1.73 sqM); Albumin 4.7 g/dL (3.5-5.0); Alkaline Phosphatase 78 U/L (38-126); Amylase 73 U/L (30-110); Anion Gap 13 mmol/L; Blood Urea Nitrogen 90 mg/dL (7-17); Calcium 9.9 mg/dL (8.4-10.2); Carbon Dioxide 33 mmol/L (22-30); Chloride 91 mmol/L (98-107); Glucose 94 mg/dL (74-99); Lipase 335 U/L (23-300); Non-African American GFR(CKD) 19 (>60 ml/min/1.73 sqM); Potassium 3.4 mmol/L (3.5-5.1); Sodium 137 mmol/L (137-145); Total Bilirubin 0.7 mg/dL (0.2-1.3); Total Protein 7.7 g/dL (6.3-8.2)
--- NOTE | 2024-04-08 23:42 | ED ---
Nausea/Vomiting/Diarrhea HPI - General Chief complaint: Nausea/Vomiting/Diarrhea Stated complaint: Vomiting,Weakness Time Seen by Provider: 04/08/24 21:13 Source: patient Mode of arrival: ambulatory Limitations: no limitations - History of Present Illness Initial comments: 73-year-old female presenting with chief complaint of nausea and vomiting. Patient was seen here back in February on the as she was concerned she had appendicitis, CT showed some mild hydronephrosis without evidence for obstruction. Patient was treated for UTI with Keflex. States that since she started the Keflex, she has not heartburn as well as nausea and vomiting. No history of gastric reflux. She has pressure-like pain in the epigastric region and states that she is frequently belching. She denies any chest pain or difficulty breathing. No other abdominal pain. No blood in the stool or emesis. No diarrhea. - Related Data Home Medications Medication Instructions Recorded Confirmed Labetalol [Trandate] 100 mg PO DAILY 12/29/19 04/09/24 Lisinopril-Hctz 20-12.5 mg 1 tab PO HS 12/29/19 04/09/24 [Zestoretic 20-12.5] Acetaminophen Tab [Tylenol Tab] 500 - 1,000 mg PO Q6HR PRN 03/10/24 04/09/24 Balance Of Nature Fruits 3 cap PO HS 03/10/24 04/09/24 Balance Of Nature Veggies 3 cap PO HS 03/10/24 04/09/24 Labetalol [Trandate] 50 mg PO HS 03/10/24 04/09/24 Multivitamins, Thera [Multivitamin 1 tab PO BID 03/10/24 04/09/24 (formulary)] Rosuvastatin [Crestor] 20 mg PO HS 03/10/24 04/09/24 Nitrofurantoin Monohyd/M-Cryst 100 mg PO BID 04/09/24 04/09/24 [Macrobid] Allergies Allergy/AdvReac Type Severity Reaction Status Date / Time cephalexin [From Keflex] AdvReac Nausea & Verified 04/09/24 12:03 Vomiting Review of Systems ROS Statement: Those systems with pertinent positive or pertinent negative responses have been documented in the HPI. ROS Other: All systems not noted in ROS Statement are negative. Past Medical History Past Medical History: Hypertension Additional Past Medical History / Comment(s): pt has hx of migraines History of Any Multi-Drug Resistant Organisms: None Reported Past Surgical History: Hernia Repair, Tonsillectomy Past Psychological History: No Psychological Hx Reported Smoking Status: Never smoker Past Alcohol Use History: None Reported Past Drug Use History: None Reported General Exam Limitations: no limitations General appearance: alert, in no apparent distress Head exam: Present: atraumatic, normocephalic, normal inspection Eye exam: Present: normal appearance, EOMI Neck exam: Present: normal inspection. Absent: meningismus Respiratory exam: Present: normal lung sounds bilaterally. Absent: respiratory distress, wheezes, rales, rhonchi, stridor Cardiovascular Exam: Present: regular rate, normal rhythm, normal heart sounds. Absent: systolic murmur, diastolic murmur, rubs, gallop, clicks GI/Abdominal exam: Present: soft. Absent: distended, tenderness, guarding, rebound, rigid Neurological exam: Present: alert, oriented X3 Psychiatric exam: Present: normal affect, normal mood Skin exam: Present: warm, dry Course Vital Signs 04/08/24 04/09/24 04/09/24 20:46 02:32 06:41 Temperature 97.5 F L Pulse Rate 89 75 71 Respiratory 16 18 15 Rate Blood Pressure 154/89 107/53 108/65 O2 Sat by Pulse 99 96 97 Oximetry 04/09/24 07:30 Temperature 98.2 F Pulse Rate 78 Respiratory 18 Rate Blood Pressure 121/69 O2 Sat by Pulse 96 Oximetry Medical Decision Making - Medical Decision Making Was pt. sent in by a medical professional or institution (, PA, PRIMARY SCHOOL PRINCIPAL, urgent care, hospital, or fpc...) When possible be specific @ -No Did you speak to anyone other than the patient for history (EMS, parent, family, police, friend...)? What history was obtained from this source @ -[id number] Did you review nursing and triage notes (agree or disagree)? Why? @ -I reviewed and agree with nursing and triage notes Were old charts reviewed (outside hosp., previous admission, EMS record, old EKG, old radiological studies, urgent care reports/EKG's, fpc records)? Report findings @ -Most recent visit reviewed Differential Diagnosis (chest pain, altered mental status, abdominal pain women, abdominal pain men, vaginal bleeding, weakness, fever, dyspnea, syncope, hea dache, dizziness, GI bleed, back pain, seizure, CVA, palpatations, mental health, musculoskeletal)? @ -Differential includes pancreatitis, kidney stone, UTI, CKD, this is not an all-inclusive list EKG interpreted by me (3pts min.). @ -As above X-rays interpreted by me (1pt min.). @ -None done CT interpreted by me (1pt min.). @ -None done U/S interpreted by me (1pt. min.). @ -None done What testing was considered but not performed or refused? (CT, X-rays, U/S, labs)? Why? @ -None What meds were considered but not given or refused? Why? @ -None Did you discuss the management of the patient with other professionals (professionals i.e. , PA, PRIMARY SCHOOL PRINCIPAL, lab, RT, psych nurse, nursing home social worker, marble machine tender, teacher, communications officer, machine adjuster leader case trim)? Give summary @ -I spoke with the [facility] provider on-call who accepts admission Was smoking cessation discussed for >3mins.? @ -No Was critical care preformed (if so, how long)? @ -No Were there social determinants of health that impacted care today? How? (Homelessness, low income, unemployed, alcoholism, drug addiction, transportation, low edu. Level, literacy, decrease access to med. care, retirement, rehab)? @ -No Was there de-escalation of care discussed even if they declined (Discuss DNR or withdrawal of care, Hospice)? DNR status @ -No What co-morbidities impacted this encounter? (DM, HTN, Smoking, COPD, CAD, Cancer, CVA, ARF, Chemo, Hep., AIDS, mental health diagnosis, sleep apnea, morbid obesity)? @ -None Was patient admitted / discharged? Hospital course, mention meds given and route, prescriptions, significant lab abnormalities, going to OR and other pertinent info. @ -73-year-old female presenting with chief complaint of nausea and vomiting. Patient reports that she is also had persistent heartburn. This started after being treated for UTI with Keflex. History and physical examination are conducted. Creatinine 2.51, this is nearly double from creatinine about 1 month ago. BUN 90. GFR is down to 19. Lipase 335. Ultrasound shows moderate right hydronephrosis, imaging from last month showed mild right hydronephrosis. P atient will be admitted for MP. Consults placed to nephrology and urology. Patient is agreeable with this plan. I discussed this case with my attending Dr. Chanel Undiagnosed new problem with uncertain prognosis? @ -No Drug Therapy requiring intensive monitoring for toxicity (Heparin, Nitro, In sulin, Cardizem)? @ -No Were any procedures done? @ -No Diagnosis/symptom? @ -MP Acute, or Chronic, or Acute on Chronic? @ -Acute Uncomplicated (without systemic symptoms) or Complicated (systemic symptoms)? @ -Complicated Side effects of treatment? @ -No Exacerbation, Progression, or Severe Exacerbation? @ -No Poses a threat to life or bodily function? How? (Chest pain, [place], [place], pneumonia, PE, COPD, DKA, ARF, appy, cholecystitis, CVA, Diverticulitis, Homicidal, Suicidal, threat to staff... and all critical care pts) @ -Yes - Lab Data Result diagrams: 04/12/24 06:35 04/12/24 06:35 Lab Results 04/08/24 04/08/24 04/08/24 Range/Units 22:00 22:00 22:02 WBC 10.4 (3.8-10.6) k/uL RBC 3.79 L (3.80-5.40) m/uL Hgb 11.3 L (11.4-16.0) gm/dL Hct 34.0 (34.0-46.0) % MCV 89.6 (80.0-100.0) fL MCH 29.8 (25.0-35.0) pg MCHC 33.3 (31.0-37.0) g/dL RDW 12.9 (11.5-15.5) % Plt Count 191 (150-450) k/uL MPV 7.6 Neutrophils % 82 % Lymphocytes % 9 % Monocytes % 7 % Eosinophils % 1 % Basophils % 1 % Neutrophils # 8.5 H (1.3-7.7) k/uL Lymphocytes # 0.9 L (1.0-4.8) k/uL Monocytes # 0.7 (0-1.0) k/uL Eosinophils # 0.1 (0-0.7) k/uL Basophils # 0.1 (0-0.2) k/uL Sodium 137 (137-145) mmol/L Potassium 3.4 L (3.5-5.1) mmol/L Chloride 91 L (98-107) mmol/L Carbon Dioxide 33 H (22-30) mmol/L Anion Gap 13 mmol/L BUN 90 H (7-17) mg/dL Creatinine 2.51 H (0.52-1.04) mg/dL Est GFR (CKD-EPI)AfAm 22 (>60 ml/min/1.73 sqM) Est GFR (CKD-EPI)NonAf 19 (>60 ml/min/1.73 sqM) Glucose 94 (74-99) mg/dL Calcium 9.9 (8.4-10.2) mg/dL Total Bilirubin 0.7 (0.2-1.3) mg/dL AST 37 H (14-36) U/L ALT 21 (4-34) U/L Alkaline Phosphatase 78 (38-126) U/L Troponin I 0.012 (0.000-0.034) ng/mL Total Protein 7.7 (6.3-8.2) g/dL Albumin 4.7 (3.5-5.0) g/dL Amylase 73 (30-110) U/L Lipase 335 H (23-300) U/L Urine Color Urine Appearance (Clear) Urine pH (5.0-8.0) Ur Specific Sigel (1.001-1.035) Urine Protein (Negative) Urine Glucose (UA) (Negative) Urine Ketones (Negative) Urine Blood (Negative) Urine Nitrite (Negative) Urine Bilirubin (Negative) Urine Urobilinogen (<2.0) mg/dL Ur Leukocyte Esterase (Negative) Urine RBC (0-5) /hpf Urine WBC (0-5) /hpf Ur Squamous Epith Cells (0-4) /hpf Urine Bacteria (None) /hpf Hyaline Casts (0-2) /lpf Urine Mucus (None) /hpf 04/09/24 Range/Units 01:42 WBC (3.8-10.6) k/uL RBC (3.80-5.40) m/uL Hgb (11.4-16.0) gm/dL Hct (34.0-46.0) % MCV (80.0-100.0) fL MCH (25.0-35.0) pg MCHC (31.0-37.0) g/dL RDW (11.5-15.5) % Plt Count (150-450) k/uL MPV Neutrophils % % Lymphocytes % % Monocytes % % Eosinophils % % Basophils % % Neutrophils # (1.3-7.7) k/uL Lymphocytes # (1.0-4.8) k/uL Monocytes # (0-1.0) k/uL Eosinophils # (0-0.7) k/uL Basophils # (0-0.2) k/uL Sodium (137-145) mmol/L Potassium (3.5-5.1) mmol/L Chloride (98-107) mmol/L Carbon Dioxide (22-30) mmol/L Anion Gap mmol/L BUN (7-17) mg/dL Creatinine (0.52-1.04) mg/dL Est GFR (CKD-EPI)AfAm (>60 ml/min/1.73 sqM) Est GFR (CKD-EPI)NonAf (>60 ml/min/1.73 sqM) Glucose (74-99) mg/dL Calcium (8.4-10.2) mg/dL Total Bilirubin (0.2-1.3) mg/dL AST (14-36) U/L ALT (4-34) U/L Alkaline Phosphatase (38-126) U/L Troponin I (0.000-0.034) ng/mL Total Protein (6.3-8.2) g/dL Albumin (3.5-5.0) g/dL Amylase (30-110) U/L Lipase (23-300) U/L Urine Color Colorless Urine Appearance Clear (Clear) Urine pH 6.5 (5.0-8.0) Ur Specific Sigel 1.017 (1.001-1.035) Urine Protein 1+ H (Negative) Urine Glucose (UA) Negative (Negative) Urine Ketones 1+ H (Negative) Urine Blood Moderate H (Negative) Urine Nitrite Negative (Negative) Urine Bilirubin Negative (Negative) Urine Urobilinogen <2.0 (<2.0) mg/dL Ur Leukocyte Esterase Trace H (Negative) Urine RBC 62 H (0-5) /hpf Urine WBC 6 H (0-5) /hpf Ur Squamous Epith Cells <1 (0-4) /hpf Urine Bacteria Rare H (None) /hpf Hyaline Casts 1 (0-2) /lpf Urine Mucus Rare H (None) /hpf Disposition Clinical Impression: MP (acute kidney injury) Disposition: ADMITTED IP TO THIS HOSP Condition: Fair Time of Disposition: 23:55
[2024-04-09] MEDS ORDERED: NALOXONE 0.4 MG/ML 1 ML VIAL IV PRN (00:03)
[2024-04-09] MEDS ORDERED: ONDANSETRON 4 MG/2 ML VIAL IVP PRN (00:03)
--- NOTE | 2024-04-09 00:16 | US ---
EXAM: US Retroperitoneal Limited, Renal CLINICAL HISTORY: ITS.REASON US Reason: MP TECHNIQUE: Real-time limited ultrasound of the retroperitoneum with image documentation. COMPARISON: CT 03/10/2024 FINDINGS: Right kidney: Moderate right hydronephrosis. No stones. Right kidney measures 9.1 cm. Left kidney: Unremarkable. No stones. No hydronephrosis. Left kidney measures 9.6 cm. IMPRESSION: Moderate right hydronephrosis.
[2024-04-09] MEDS: SODIUM CHLORIDE 0.9% 1,000 ML IV SCH (01:21)
[2024-04-09 02:04] LABS: Appearance,Urine Clear (Clear); Bacteria,Urine Rare /hpf; Bilirubin,Urine Negative (Negative); Blood,Urine Moderate (Negative); Color,Urine Colorless; Glucose,Urine (UA) Negative (Negative); Hyaline Casts,Urine 1 /lpf (0-2); Ketones,Urine 1+ (Negative); Leukocyte Esterase,Urine Trace (Negative); Mucus,Urine Rare /hpf; Nitrite,Urine Negative (Negative); PH, Urine 6.5 (5.0-8.0); Protein,Urine 1+ (Negative); RBC,Urine 62 /hpf (0-5); Specific Gravity,Urine 1.017 (1.001-1.035); Squamous Epithelial Cell,Urine <1 /hpf (0-4); Urobilinogen,Urine <2.0 mg/dL (<2.0); WBC,Urine 6 /hpf (0-5)
--- NOTE | 2024-04-09 06:31 | XR ---
EXAMINATION TYPE: XR chest 2V DATE OF EXAM: 04/08/2024 CLINICAL HISTORY: Burning epigastric pain TECHNIQUE: Frontal and lateral views of the chest are obtained. COMPARISON: Chest x-ray August 14, 2022 FINDINGS: There is no focal air space opacity, pleural effusion, or pneumothorax seen. The cardiac silhouette size remain within normal limits. The osseous structures are intact. Slightly prominent stomach with air-fluid level is partially imaged, correlate clinically. IMPRESSION: No acute cardiopulmonary process. No significant change from prior. [facility], , 04/09/2024 6:29 AM
[2024-04-09] MEDS: METOCLOPRAMIDE 5 MG/ML 2 ML VIAL IVP PRN (09:13)
--- NOTE | 2024-04-09 12:06 | P.NPCON ---
History of Present Illness - Reason for Consult acute renal failure - History of Present Illness patient is a 73-year-old female with history of hypertension who is admitted to the hospital with complaints of vomiting after she took Keflex for UTI. Patient had nausea and vomiting with no diarrhea. This has improved now. No previous history of kidney diseases. Ultrasound showed moderate right hydronephrosis. Serum creatinine noted to be 2.5 mg/dL with previous creatinine 1.2 on 03/10/2024 and 1.0 on 08/14/2022. Patient has been voiding. Maintained on JEROMY inhibitor's and diuretics at home, currently on hold Past Medical History Past Medical History: Hypertension Additional Past Medical History / Comment(s): pt has hx of migraines History of Any Multi-Drug Resistant Organisms: None Reported Past Surgical History: Hernia Repair, Tonsillectomy Past Psychological History: No Psychological Hx Reported Smoking Status: Never smoker Past Alcohol Use History: None Reported Past Drug Use History: None Reported Medications and Allergies Home Medications Medication Instructions Recorded Confirmed Type Labetalol [Trandate] 100 mg PO DAILY 12/29/19 04/09/24 History Lisinopril-Hctz 20-12.5 mg 1 tab PO HS 12/29/19 04/09/24 History [Zestoretic 20-12.5] Acetaminophen Tab [Tylenol Tab] 500 - 1,000 mg PO Q6HR PRN 03/10/24 04/09/24 History Balance Of Nature Fruits 3 cap PO HS 03/10/24 04/09/24 History Balance Of Nature Veggies 3 cap PO HS 03/10/24 04/09/24 History Labetalol [Trandate] 50 mg PO HS 03/10/24 04/09/24 History Multivitamins, Thera [Multivitamin 1 tab PO BID 03/10/24 04/09/24 History (formulary)] Rosuvastatin [Crestor] 20 mg PO HS 03/10/24 04/09/24 History Nitrofurantoin Monohyd/M-Cryst 100 mg PO BID 04/09/24 04/09/24 History [Macrobid] Allergies Allergy/AdvReac Type Severity Reaction Status Date / Time No Known Allergies Allergy Verified 04/09/24 07:25 Physical Exam Vitals: Vital Signs Temp Pulse Pulse Resp BP BP Pulse Ox 04/09/24 08:37 97.5 F L 70 17 144/74 98 04/09/24 07:30 98.2 F 78 18 121/69 96 04/09/24 06:41 71 15 108/65 97 04/09/24 02:32 75 18 107/53 96 04/08/24 20:46 97.5 F L 89 16 154/89 99 Intake and Output 04/08/24 04/09/24 04/09/24 22:59 06:59 14:59 Other: Voiding Method Toilet Weight 49.895 kg patient is awake, comfortable, no acute distress alert oriented 3 Examination of the heart S1 and S2 Examination of the lungs bilateral breath sounds are heard Abdomen is soft nontender Examination lower extremity shows no evidence of edema PHYSICIAN SUPPORT COORDINATOR exam grossly intact Results - Lab Results Most recent lab results Calcium 9.9 mg/dL (8.4-10.2) 04/08/24 22:02 04/08/24 22:00 04/08/24 22:02 Assessment and Plan Assessment: 1. Acute kidney injury, most likely prerenal. Underlying right hydronephrosis noted as well and urology is on consult. UA shows 1+ protein and moderate blood and WBC 6. JEROMY inhibitor's on hold 2. UTI with urine culture growing E. coli on 03/10/2024 with side effects of nausea and vomiting with keflex. 3. Right hydronephrosis, urology on consult. No history of kidney stones. 4. Hypokalemia associated with vomiting Plan: continue with IV fluids Replace potassium Continue to hold Jeromy inhibitors and diuretics Repeat labs in a.m. Thank you for the consultation. We will continue to follow the patient with you during her hospitalization.
[2024-04-09] MEDS: POTASSIUM CHLORIDE ER 20 MEQ TAB.ER PO STA (13:18)
[2024-04-09] MEDS: PANTOPRAZOLE 40 MG/10 ML VIAL IVP SCH (14:49)
[2024-04-09] MEDS: SIMETHICONE 80 MG CHEWABLE PO PRN (18:47)
[2024-04-09] MEDS: ATORVASTATIN 40 MG TAB PO SCH (20:44)
[2024-04-09] MEDS: MULTIVITAMINS, THERA 1 EACH TAB PO SCH (20:44)
[2024-04-09] MEDS: LABETALOL 100 MG TAB PO SCH (20:44)
[2024-04-09] MEDS ORDERED: LABETALOL 100 MG TAB PO SCH (21:00)
--- NOTE | 2024-04-10 01:32 | HP ---
HISTORY AND PHYSICAL CHIEF COMPLAINT: Vomiting, weakness, and renal failure. HISTORY OF PRESENT ILLNESS: This is a 73-year-old woman with a past medical history of multiple medical problems including hypertension, was having UTI recently. The patient took a course of Keflex for 5 days. Subsequently, the patient had vomiting and weakness, unable to keep anything down. The patient came to [facility], was found to have a creatinine of 2.51, indicating acute renal failure. The patient was admitted for further evaluation and treatment. There is no history of any fever, rigors, or chills at this time. PAST MEDICAL HISTORY: Recent UTI, hypertension. Rest of the history and rest of the chart is also reviewed. HOME MEDICATIONS: Crestor. Dose and rest of medications reviewed. ALLERGIES: Keflex. FAMILY HISTORY: No history of heart disease or strokes in the family. SOCIAL HISTORY: No history of smoking or alcohol. REVIEW OF SYSTEMS: Fourteen-point review is negative except as mentioned earlier. PHYSICAL EXAMINATION: VITAL SIGNS: Pulse 70, blood pressure 140/74, respirations 17. HEENT: Conjunctivae normal. NECK: No JVD. CARDIOVASCULAR: S1, S2. RESPIRATIONS: Breath sounds diminished at the bases. No rhonchi. No crackles. ABDOMEN: Soft, nontender. LEGS: No edema. NERVOUS SYSTEM: Nonfocal. SKIN: No ulcer, rash, bleeding. JOINTS: No active deforming arthropathy. LABORATORY DATA: Reviewed. Creatinine 2.5. ASSESSMENT: 1. Acute renal failure with acute tubular necrosis and prerenal factors. 2. Severe vomiting with possible acute gastritis. 3. Hypertension. 4. History of recent urinary tract infection. 5. History of tonsillectomy. RECOMMENDATIONS: This is a 73-year-old woman, who presented with multiple complex medical issues, we will monitor the patient closely. Continue the current management and cautious IV hydration and current treatment. Otherwise, closely follow with Nephrology. We will continue to monitor. Otherwise, guarded prognosis. Further recommendations to follow. MMODL / IJN: [id number] /
[2024-04-10 08:42] LABS: ALT 12 U/L (8-44); AST 23 U/L (13-35); Albumin 3.6 g/dL (3.8-4.9); Alkaline Phosphatase 61 U/L (41-126); BUN/Creat Ratio 30.83 Ratio (12.00-20.00); Blood Urea Nitrogen 55.5 mg/dL (9.0-27.0); Calcium 8.5 mg/dL (8.7-10.3); Carbon Dioxide 19.9 mmol/L (21.6-31.8); Chloride 101 mmol/L (96-109); Globulin 2.4 g/dL (1.6-3.3); Glucose 90 mg/dL (70-110); Magnesium 2.3 mg/dL (1.5-2.4); Potassium 4.3 mmol/L (3.5-5.5); Sodium 135 mmol/L (135-145); Total Bilirubin 0.4 mg/dL (0.3-1.2)
[2024-04-10 08:44] LABS: Basophils # (A) 0.05 X 10*3/uL (0.00-0.10); Basophils % (A) 0.5 %; Eosinophils # (A) 0.28 X 10*3/uL (0.04-0.35); Eosinophils % (A) 2.8 %; HCT 30.8 % (37.2-46.3); HGB 9.6 g/dL (12.0-15.0); Lymphocytes # (A) 1.12 X 10*3/uL (0.90-5.00); Lymphocytes % (A) 11.2 %; MCH 29.4 pg (27.0-32.0); MCHC 31.2 g/dL (32.0-37.0); MCV 94.2 FL (80.0-97.0); Mean Platelet Volume 10.8 FL (9.5-12.2); Monocytes # (A) 1.19 X 10*3/uL (0.20-1.00); Monocytes % (A) 11.9 %; NRBC Per 100 WBC 0 X 10*3/uL (0.00-0.01); Neutrophils # (A) 7.34 X 10*3/uL (1.80-7.70); Neutrophils % (A) 73.2 %; Platelet Count 131 X 10*3/uL (140-440); RBC 3.27 X 10*6/uL (4.10-5.20); RDW 13.2 % (11.5-14.5); WBC 10.02 X 10*3/uL (4.50-10.00)
[2024-04-10] MEDS ORDERED: LABETALOL 100 MG TAB PO SCH (09:00)
[2024-04-10] MEDS: LABETALOL 100 MG TAB PO SCH (09:15)
--- NOTE | 2024-04-10 10:15 | P.GSCN ---
History of Present Illness Consult date: 04/10/24 Reason for Consult: Right hydronephrosis Requesting physician: Genet Hernandez History of present illness: The patient is a 73-year-old white female admitted with nausea and vomiting. Renal ultrasound shows evidence of hydronephrosis. CT scan performed last month also showed right hydroureteronephrosis down to the pelvic inlet. An obstructing etiology was not identified. Her serum creatinine level was 1.09 in July 2022 but is now 2.51, up from 1.24 last month. She was found to have an E. coli UTI last month, treated with Keflex. Her only symptom at that time was right flank pain, which has resolved. Since that time, she has experienced heartburn, nausea, and vomiting. She denies any prior history of urolithiasis. She states that she was treated for recurrent cystitis as a young adult, but it has been years since she had a UTI until last month. Review of Systems - Constitutional Denies chills, Denies fever - Cardiovascular Reports high blood pressure - Gastrointestinal Reports nausea, Reports vomiting - Genitourinary Genitourinary: Denies dysuria, Denies hematuria Past Medical History Past Medical History: Hypertension Additional Past Medical History / Comment(s): pt has hx of migraines History of Any Multi-Drug Resistant Organisms: None Reported Past Surgical History: Hernia Repair, Tonsillectomy Past Psychological History: No Psychological Hx Reported Smoking Status: Never smoker Past Alcohol Use History: None Reported Past Drug Use History: None Reported Medications and Allergies Home Medications Medication Instructions Recorded Confirmed Type Labetalol [Trandate] 100 mg PO DAILY 12/29/19 04/09/24 History Lisinopril-Hctz 20-12.5 mg 1 tab PO HS 12/29/19 04/09/24 History [Zestoretic 20-12.5] Acetaminophen Tab [Tylenol Tab] 500 - 1,000 mg PO Q6HR PRN 03/10/24 04/09/24 History Balance Of Nature Fruits 3 cap PO HS 03/10/24 04/09/24 History Balance Of Nature Veggies 3 cap PO HS 03/10/24 04/09/24 History Labetalol [Trandate] 50 mg PO HS 03/10/24 04/09/24 History Multivitamins, Thera [Multivitamin 1 tab PO BID 03/10/24 04/09/24 History (formulary)] Rosuvastatin [Crestor] 20 mg PO HS 03/10/24 04/09/24 History Nitrofurantoin Monohyd/M-Cryst 100 mg PO BID 04/09/24 04/09/24 History [Macrobid] Allergies Allergy/AdvReac Type Severity Reaction Status Date / Time cephalexin [From Keflex] AdvReac Nausea & Verified 04/09/24 12:03 Vomiting Surgical - Exam Vital Signs Temp Pulse Resp BP Pulse Ox 97.5 F L 89 16 154/89 99 04/08/24 20:46 04/08/24 20:46 04/08/24 20:46 04/08/24 20:46 04/08/24 20:46 - General well developed, well nourished, no distress - Respiratory normal respiratory effort - Abdomen Abdomen: soft, non tender, no guarding, no rigid, no rebound - Psychiatric oriented to time, oriented to person, oriented to place, speech is normal, memory intact Results - Labs 04/10/24 04:11 04/10/24 04:11 - Imaging CT scan - abdomen: report reviewed, image reviewed US - kidney/bladder: report reviewed Assessment and Plan (1) Unspecified hydronephrosis Current Visit: Yes Status: Acute Code(s): N13.30 - UNSPECIFIED HYDRONEPHROSIS SNOMED Code(s): 35245312 Plan: I had a lengthy discussion with Mrs. Flores regarding her recently diagnosed right hydronephrosis. I discussed the differential diagnosis with her, and the fact that this is likely contributing to her diminished renal function. I have recommended that she undergo cystoscopy, right retrograde pyelogram, possible right ureteroscopy, and right ureteral stent insertion. This will serve as a diagnostic study to determine the cause of the hydronephrosis, and also relieve the hydronephrosis and hopefully improve her renal function. She wishes to proceed and this has been scheduled to be done tomorrow afternoon. Potential risks were reviewed with her in detail. Time with Patient: Greater than 30
[2024-04-10] MEDS: LACTATED RINGERS 1,000 ML IV SCH (13:06)
[2024-04-10] MEDS: ONDANSETRON 4 MG/2 ML VIAL IVP PRN (14:19)
--- NOTE | 2024-04-11 01:36 | PN ---
PROGRESS NOTE DATE OF SERVICE: 04/10/2024 SUBJECTIVE: This is a 73-year-old woman admitted with acute renal failure, also has hydronephrosis on the right. Urology is planning cystoscopy. No chest pain. No palpitation. OBJECTIVE: VITAL SIGNS: Pulse 84, blood pressure 148/80, respirations 16. CHEST: Clear to auscultation. CARDIOVASCULAR: S1, S2. ABDOMEN: Soft. NERVOUS SYSTEM: Nonfocal. LABORATORY DATA: Creatinine is 1.8, WBC 10.02. ASSESSMENT: 1. Acute renal failure with acute tubular necrosis and prerenal factors. 2. Moderate right hydronephrosis. 3. Severe vomiting with possible acute gastritis. 4. Hypertension. 5. History of recent urinary tract infection. 6. History of tonsillectomy. RECOMMENDATIONS: Recommend to continue current management and continue symptomatic treatment. The patient does not have any urinary symptoms at this time, I recommend to continue IV hydration. Urology, Nephrology evaluation. Repeat labs and cystoscopy. Guarded prognosis. Further recommendations to follow. MMODL / IJN: [id number] /
[2024-04-11] MEDS: ACETAMINOPHEN TAB 500 MG TAB PO PRN (08:20)
[2024-04-11 08:56] LABS: BUN/Creat Ratio 25.47 Ratio (12.00-20.00); Basophils # (A) 0.04 X 10*3/uL (0.00-0.10); Basophils % (A) 0.4 %; Blood Urea Nitrogen 38.2 mg/dL (9.0-27.0); Calcium 8.7 mg/dL (8.7-10.3); Carbon Dioxide 18.7 mmol/L (21.6-31.8); Chloride 102 mmol/L (96-109); Eosinophils # (A) 0.18 X 10*3/uL (0.04-0.35); Eosinophils % (A) 1.8 %; Glucose 81 mg/dL (70-110); HGB 9.7 g/dL (12.0-15.0); Lymphocytes # (A) 1.05 X 10*3/uL (0.90-5.00); Lymphocytes % (A) 10.4 %; MCHC 31.3 g/dL (32.0-37.0); MCV 92.8 FL (80.0-97.0); Mean Platelet Volume 10.8 FL (9.5-12.2); Monocytes # (A) 1.02 X 10*3/uL (0.20-1.00); Monocytes % (A) 10.1 %; NRBC Per 100 WBC 0 X 10*3/uL (0.00-0.01); Neutrophils # (A) 7.78 X 10*3/uL (1.80-7.70); Neutrophils % (A) 76.8 %; Platelet Count 111 X 10*3/uL (140-440); Potassium 4.8 mmol/L (3.5-5.5); RBC 3.34 X 10*6/uL (4.10-5.20); RDW 13.2 % (11.5-14.5); Sodium 134 mmol/L (135-145); WBC 10.12 X 10*3/uL (4.50-10.00)
--- NOTE | 2024-04-11 12:48 | P.PN ---
Subjective patient is seen for follow-up for acute kidney injury. Currently maintained on IV fluids with improvement in renal function. serum creatinine has decreased to 1.8 today. Scheduled for cystoscopy tomorrow. Objective - Vital Signs Vital signs: Vital Signs Temp 98.2 F 04/11/24 07:00 Pulse 97 04/11/24 07:00 Resp 17 04/11/24 07:00 BP 117/71 04/11/24 07:00 Pulse Ox 96 04/11/24 07:00 FiO2 Intake & Output 04/10/24 04/11/24 04/11/24 18:59 06:59 18:59 Weight 49.895 kg Other: Voiding Method Toilet Toilet # Voids 2 1 blood pressure on 04/10/2024 was 148/83 with heart rate of 72/m. Patient is afebrile. O2 sats 97% on room air. - Exam patient is awake, comfortable, no acute distress alert oriented 3 Examination of the heart S1 and S2 Examination of the lungs bilateral breath sounds are heard Abdomen is soft nontender Examination lower extremity shows no evidence of edema HVAC ENGINEERING TECHNICIAN exam grossly intact - Labs CBC & Chem 7: 04/11/24 04:30 04/11/24 04:30 Labs: Abnormal Lab Results - Last 24 Hours (Table) 04/11/24 04/11/24 Range/Units 04:30 04:30 WBC 10.12 H (4.50-10.00) X 10*3/uL RBC 3.34 L (4.10-5.20) X 10*6/uL Hgb 9.7 L (12.0-15.0) g/dL Hct 31.0 L (37.2-46.3) % MCHC 31.3 L (32.0-37.0) g/dL Plt Count 111 L (140-440) X 10*3/uL Immature Gran # 0.05 H (0.00-0.04) X 10*3/uL Neutrophils # 7.78 H (1.80-7.70) X 10*3/uL Monocytes # 1.02 H (0.20-1.00) X 10*3/uL Sodium 134 L (135-145) mmol/L Carbon Dioxide 18.7 L (21.6-31.8) mmol/L Anion Gap 13.30 H (4.00-12.00) mmol/L BUN 38.2 H (9.0-27.0) mg/dL Est GFR (CKD-EPI) 37 L (>=60) BUN/Creatinine Ratio 25.47 H (12.00-20.00) Ratio Microbiology - Last 24 Hours (Table) 04/09/24 15:58 Urine Culture - Preliminary Urine,Voided Gram Neg Bacilli 04/09/24 14:06 Blood Culture - Preliminary Blood Assessment and Plan Assessment: 1. Acute kidney injury, prerenal. Underlying right hydronephrosis noted as well and urology is on consult. UA shows 1+ protein and moderate blood and WBC 6. JEROMY inhibitor's on hold 2. UTI with urine culture growing E. coli on 03/10/2024 with side effects of nausea and vomiting with keflex. 3. Right hydronephrosis, urology on consult. No history of kidney stones. 4. Hypokalemia associated with vomiting Plan: continue with IV fluids Replace potassium Continue to hold Jeromy inhibitors and diuretics Repeat labs in a.m.
--- NOTE | 2024-04-11 12:49 | P.PN ---
Subjective patient is seen for follow-up for acute kidney injury. Currently maintained on IV fluids with improvement in renal function. Serum creatinine has decreased to 1.5 today. Scheduled for cystoscopy today. Objective - Vital Signs Vital signs: Vital Signs Temp 98.2 F 04/11/24 07:00 Pulse 97 04/11/24 07:00 Resp 17 04/11/24 07:00 BP 117/71 04/11/24 07:00 Pulse Ox 96 04/11/24 07:00 FiO2 Intake & Output 04/10/24 04/11/24 04/11/24 18:59 06:59 18:59 Weight 49.895 kg Other: Voiding Method Toilet Toilet # Voids 2 1 - Exam patient is awake, comfortable, no acute distress alert oriented 3 Examination of the heart S1 and S2 Examination of the lungs bilateral breath sounds are heard Abdomen is soft nontender Examination lower extremity shows no evidence of edema RADIOLOGY ASSISTANT exam grossly intact - Labs CBC & Chem 7: 04/11/24 04:30 04/11/24 04:30 Labs: Abnormal Lab Results - Last 24 Hours (Table) 04/11/24 04/11/24 Range/Units 04:30 04:30 WBC 10.12 H (4.50-10.00) X 10*3/uL RBC 3.34 L (4.10-5.20) X 10*6/uL Hgb 9.7 L (12.0-15.0) g/dL Hct 31.0 L (37.2-46.3) % MCHC 31.3 L (32.0-37.0) g/dL Plt Count 111 L (140-440) X 10*3/uL Immature Gran # 0.05 H (0.00-0.04) X 10*3/uL Neutrophils # 7.78 H (1.80-7.70) X 10*3/uL Monocytes # 1.02 H (0.20-1.00) X 10*3/uL Sodium 134 L (135-145) mmol/L Carbon Dioxide 18.7 L (21.6-31.8) mmol/L Anion Gap 13.30 H (4.00-12.00) mmol/L BUN 38.2 H (9.0-27.0) mg/dL Est GFR (CKD-EPI) 37 L (>=60) BUN/Creatinine Ratio 25.47 H (12.00-20.00) Ratio Microbiology - Last 24 Hours (Table) 04/09/24 15:58 Urine Culture - Preliminary Urine,Voided Gram Neg Bacilli 04/09/24 14:06 Blood Culture - Preliminary Blood Assessment and Plan Assessment: 1. Acute kidney injury, prerenal. Underlying right hydronephrosis noted as well and urology is on consult. UA shows 1+ protein and moderate blood and WBC 6. JEROMY inhibitor's on hold 2. UTI with urine culture growing E. coli on 03/10/2024 with side effects of nausea and vomiting with keflex. 3. Right hydronephrosis, urology on consult. No history of kidney stones. Scheduled for cystoscopy today 4. Hypokalemia associated with vomiting, improved Plan: continue with IV fluids Continue to hold Jeromy inhibitors and diuretics Repeat labs in a.m.
[2024-04-11] MEDS: IV FLUID CONTINUATION 1,000 ML IV ONE (13:40)
[2024-04-11] MEDS: DEXAMETHASONE SOD PHOSPHATE 4 MG/ML 1 ML VIAL IVP STA (13:49)
[2024-04-11] MEDS ORDERED: fentaNYL (PF) 50 MCG/ML 2 ML AMP ONE (14:44)
[2024-04-11] MEDS ORDERED: LIDOCAINE 1% INJ 10MG/ML (20 ML MDV) ONE (14:44)
[2024-04-11] MEDS ORDERED: PROPOFOL 10 MG/ML 20 ML VIAL IV ONE (14:44)
[2024-04-11] MEDS: IOPAMIDOL-370 100ML BTL MISCELLANE ONE ×2 (15:08)
[2024-04-11] MEDS: LEVOFLOXACIN 500MG-D5W PMX 500 MG in DEXTROSE/WATER 1 100ML.BAG IVPB SCH (15:14)
--- NOTE | 2024-04-11 15:31 | P.OP ---
Date of Procedure: 04/11/24 Preoperative Diagnosis: Right Hydronephrosis Postoperative Diagnosis: Same Procedure(s) Performed: Cystoscopy, right retrograde pyelogram, right ureteral stent insertion Anesthesia: MAX Surgeon: Bryant Lechuga Estimated Blood Loss (ml): 0 IV fluids (ml): 500 Pathology: none sent Condition: stable Disposition: PACU Indications for Procedure: The patient is a 73-year-old white female admitted with nausea and vomiting. Renal ultrasound shows evidence of hydronephrosis. CT scan performed last month also showed right hydroureteronephrosis down to the pelvic inlet. An obstructing etiology was not identified. Her serum creatinine level was 1.09 in July 2022 but is now 2.51, up from 1.24 last month. She was found to have an E. coli UTI last month, treated with Keflex. Her only symptom at that time was right flank pain, which has resolved. Since that time, she has experienced heartburn, nausea, and vomiting. She denies any prior history of urolithiasis. She states that she was treated for recurrent cystitis as a young adult, but it has been years since she had a UTI until last month. 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 The ureter proximal to this is dilated and tortuous. 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 Description of Procedure: The patient was taken to the operating room and placed in the dorsolithotomy position, with legs supported in Scooter stirrups. The external genitalia was prepped and draped sterilely. The 30 lens was used to introduce the 22-Chadian Stortz cystoscopic sheath through the urethra and into the bladder under direct vision. The bladder was examined in its entirety. Both ureteral orifices were of normal anatomic location and configuration. No tumors or foreign bodies were seen. Using a 10 Chadian cone-tip catheter, a right retrograde pyelogram was performed. The right distal ureter appeared normal. At the level of the iliac vessels was a narrowed segment measuring approximately 1.5 cm in length. This appeared to be a stricture of indeterminate etiology. The ureter proximal to this was dilated and tortuous. The right kidney was noted to be low-lying, as had been seen on CT scan. A 0.035 inch Glidewire was passed through the cystoscope. The right ureteral orifice was cannulated, and the Glidewire was slowly advanced up to the renal pelvis. A 22 cm, 6-Chadian double-J ureteral stent was placed over the wire. Proper stent positioning was verified fluoroscopically and endoscopically. There was evidence of a "hydronephrotic garcia" after placing the stent. The urine drained from the right renal pelvis was clear. The bladder was emptied and the cystoscope removed. The patient tolerated the procedure well and was taken to the recovery room in stable condition.
--- NOTE | 2024-04-11 17:57 | FL ---
Fluoroscopy INDICATION: Pain FINDINGS: Fluoroscopy time: 11 seconds. Total dose area product (DAP) in uGy*m?, mGy*cm? (or similar): 0.28133 Images obtained: 5. Right great ureterogram IMPRESSION: 1. Documentation of fluoroscopy. [facility], , 04/11/2024 5:55 PM
--- NOTE | 2024-04-12 05:17 | PN ---
PROGRESS NOTE DATE OF SERVICE: 04/11/2024 SUBJECTIVE: This is a 73-year-old woman admitted with acute renal failure. She is slated to go to Urology for procedure today. No chest pain. No palpitation. OBJECTIVE: VITAL SIGNS: Pulse is 87, blood pressure 124/60, respirations 18. CHEST: Clear to auscultation. ABDOMEN: Soft. NERVOUS SYSTEM: Nonfocal.. LABORATORY DATA: Reviewed. ASSESSMENT: 1. Acute renal failure with acute tubular necrosis and prerenal factors, present on admission. 2. Moderate right hydronephrosis for cystoscopy. 3. Severe vomiting with possible acute gastritis. 4. Hypertension. 5. History of recent urinary tract infection with Escherichia coli. 6. History of tonsillectomy. RECOMMENDATIONS: Recommend to continue current management and continue symptomatic treatment. Repeat labs. Otherwise, follow closely with Urology. Further recommendations to follow. MMODL / IJN: [id number] /
[2024-04-12 10:42] LABS: Basophils # (A) 0.02 X 10*3/uL (0.00-0.10); Basophils % (A) 0.2 %; Eosinophils # (A) 0.02 X 10*3/uL (0.04-0.35); Eosinophils % (A) 0.2 %; HCT 28.4 % (37.2-46.3); HGB 9.1 g/dL (12.0-15.0); Lymphocytes # (A) 0.85 X 10*3/uL (0.90-5.00); Lymphocytes % (A) 8.3 %; MCH 29.3 pg (27.0-32.0); MCV 91.3 FL (80.0-97.0); Mean Platelet Volume 10.9 FL (9.5-12.2); Monocytes # (A) 0.94 X 10*3/uL (0.20-1.00); Monocytes % (A) 9.2 %; NRBC Per 100 WBC 0 X 10*3/uL (0.00-0.01); Neutrophils # (A) 8.35 X 10*3/uL (1.80-7.70); Neutrophils % (A) 81.8 %; Platelet Count 107 X 10*3/uL (140-440); RBC 3.11 X 10*6/uL (4.10-5.20); RDW 13.3 % (11.5-14.5); WBC 10.21 X 10*3/uL (4.50-10.00)
[2024-04-12 10:58] LABS: Blood Urea Nitrogen 35.2 mg/dL (9.0-27.0); Calcium 8.5 mg/dL (8.7-10.3); Carbon Dioxide 19.6 mmol/L (21.6-31.8); Chloride 101 mmol/L (96-109); Glucose 107 mg/dL (70-110); Potassium 4.8 mmol/L (3.5-5.5); Sodium 134 mmol/L (135-145)
--- NOTE | 2024-04-12 12:44 | P.PN ---
Subjective Progress Note Date: 04/12/24 Principal diagnosis: Right Hydronephrosis Mrs. Flores underwent right ureteral stent insertion yesterday. She was found to have a 1.5 cm segment of significant ureteral narrowing with hydroureteronephrosis proximal to this. She does report increased urinary frequency and slight hematuria, but overall states that she is feeling much better. Specifically, she states that her heartburn has resolved and she feels less fatigued. Objective - Vital Signs Vital signs: Vital Signs Temp 98.0 F 04/12/24 07:42 Pulse 73 04/12/24 10:30 Resp 18 04/12/24 10:30 BP 144/73 04/12/24 07:42 Pulse Ox 96 04/12/24 07:42 FiO2 Intake & Output 04/11/24 04/12/24 04/12/24 18:59 06:59 18:59 Intake Total 700 Output Total 0 Balance 700 Intake: IV 700 Output: Estimated Blood Loss 0 Other: Voiding Method Toilet Toilet # Voids 1 1 - Constitutional General appearance: Present: average body habitus, cooperative, no acute distress - Psychiatric Psychiatric: Present: A&O x's 3 - Labs CBC & Chem 7: 04/12/24 06:35 04/12/24 06:35 Labs: Abnormal Lab Results - Last 24 Hours (Table) 04/12/24 04/12/24 Range/Units 06:35 06:35 WBC 10.21 H (4.50-10.00) X 10*3/uL RBC 3.11 L (4.10-5.20) X 10*6/uL Hgb 9.1 L (12.0-15.0) g/dL Hct 28.4 L (37.2-46.3) % Plt Count 107 L (140-440) X 10*3/uL Neutrophils # 8.35 H (1.80-7.70) X 10*3/uL Lymphocytes # 0.85 L (0.90-5.00) X 10*3/uL Eosinophils # 0.02 L (0.04-0.35) X 10*3/uL Sodium 134 L (135-145) mmol/L Carbon Dioxide 19.6 L (21.6-31.8) mmol/L Anion Gap 13.40 H (4.00-12.00) mmol/L BUN 35.2 H (9.0-27.0) mg/dL Creatinine 1.6 H (0.6-1.5) mg/dL Est GFR (CKD-EPI) 34 L (>=60) BUN/Creatinine Ratio 22.00 H (12.00-20.00) Ratio Calcium 8.5 L (8.7-10.3) mg/dL Microbiology - Last 24 Hours (Table) 04/09/24 15:58 Urine Culture - Preliminary Urine,Voided Gram Neg Bacilli 04/09/24 14:06 Blood Culture - Preliminary Blood Assessment and Plan (1) Unspecified hydronephrosis Current Visit: Yes Status: Acute Code(s): N13.30 - UNSPECIFIED HYDRONEPHROSIS SNOMED Code(s): 28543818 Plan: The patient's serum creatinine level today is unchanged. Once the urine culture is complete, she is urologically stable for discharge on appropriate oral antibiotics. Arrangements will be made for her to undergo cystoscopy with right ureteroscopy in approximately 3 weeks. The differential diagnosis includes urothelial carcinoma and ureteral stricture. Extrinsic compression of the ureter appears to be less likely, given that no masses were seen on CT scan.
[2024-04-12] MEDS: ERTAPENEM 0.5 GM in SODIUM CHLORIDE 0.9% 50 ML IVPB SCH (13:14)
[2024-04-12 14:08] LABS: Appearance,Urine Clear (Clear); Bacteria,Urine Rare /hpf; Bilirubin,Urine Negative (Negative); Blood,Urine Moderate (Negative); Color,Urine Colorless; Glucose,Urine (UA) Negative (Negative); Ketones,Urine Negative (Negative); Leukocyte Esterase,Urine Large (Negative); Mucus,Urine Rare /hpf; Nitrite,Urine Negative (Negative); PH, Urine 5.5 (5.0-8.0); Protein,Urine Trace (Negative); RBC,Urine 14 /hpf (0-5); Specific Gravity,Urine 1.008 (1.001-1.035); Squamous Epithelial Cell,Urine <1 /hpf (0-4); Urobilinogen,Urine <2.0 mg/dL (<2.0); WBC,Urine 48 /hpf (0-5)
[2024-04-12] MEDS ORDERED: LEVOFLOXACIN 250MG-D5W PMX 250 MG in DEXTROSE/WATER 1 50ML.BAG IVPB SCH (15:00)
--- NOTE | 2024-04-12 22:16 | P.PN ---
Subjective patient is seen for follow-up for acute kidney injury. Currently maintained on IV fluids with improvement in renal function. Serum creatinine has decreased to 1.5 yesterday. S/p cystoscopy yesterday and right ureteral stent placement. 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 - Labs CBC & Chem 7: 04/12/24 06:35 04/12/24 06:35 Labs: Abnormal Lab Results - Last 24 Hours (Table) 04/12/24 04/12/24 04/12/24 Range/Units 06:35 06:35 11:45 WBC 10.21 H (4.50-10.00) X 10*3/uL RBC 3.11 L (4.10-5.20) X 10*6/uL Hgb 9.1 L (12.0-15.0) g/dL Hct 28.4 L (37.2-46.3) % Plt Count 107 L (140-440) X 10*3/uL Neutrophils # 8.35 H (1.80-7.70) X 10*3/uL Lymphocytes # 0.85 L (0.90-5.00) X 10*3/uL Eosinophils # 0.02 L (0.04-0.35) X 10*3/uL Sodium 134 L (135-145) mmol/L Carbon Dioxide 19.6 L (21.6-31.8) mmol/L Anion Gap 13.40 H (4.00-12.00) mmol/L BUN 35.2 H (9.0-27.0) mg/dL Creatinine 1.6 H (0.6-1.5) mg/dL Est GFR (CKD-EPI) 34 L (>=60) BUN/Creatinine Ratio 22.00 H (12.00-20.00) Ratio Calcium 8.5 L (8.7-10.3) mg/dL Urine Protein Trace H (Negative) Urine Blood Moderate H (Negative) Ur Leukocyte Esterase Large H (Negative) Urine RBC 14 H (0-5) /hpf Urine WBC 48 H (0-5) /hpf Urine Bacteria Rare H (None) /hpf Urine Mucus Rare H (None) /hpf Microbiology - Last 24 Hours (Table) 04/09/24 14:06 Blood Culture - Preliminary Blood 04/09/24 15:58 Urine Culture - Preliminary Urine,Voided Escherichia coli Assessment and Plan Assessment: 1. Acute kidney injury, prerenal. Underlying right hydronephrosis noted as well and urology is on consult. UA shows 1+ protein and moderate blood and WBC 6. JEROMY inhibitor's on hold 2. UTI with urine culture growing E. coli on 03/10/2024 with side effects of nausea and vomiting with keflex. 3. Right hydronephrosis, urology on consult. No history of kidney stones. S/p cystoscopy and right ureteral stent placement on 04/11/2024 4. Hypokalemia associated with vomiting, improved Plan: May discontinue IV fluids Continue to hold Jeromy inhibitors and diuretics Repeat labs in a.m.
--- NOTE | 2024-04-13 04:36 | PN ---
PROGRESS NOTE DATE OF SERVICE: 04/12/2024 SUBJECTIVE: This is a 73-year-old woman admitted with acute renal failure, acute tubular necrosis, also had hydronephrosis. The patient underwent cystoscopy and right ureteral stent insertion. The patient has ESBL gram-negative bacilli grown from the urine. No chest pain. No palpitation. PHYSICAL EXAMINATION: VITAL SIGNS: Pulse is 73, blood pressure is 140/70, respirations are 18. CHEST: Clear to auscultation. CARDIOVASCULAR: S1, S2. ABDOMEN: Soft and nontender. LABORATORY DATA: WBC 10.21. The rest of the labs are noted. ASSESSMENT: 1. Acute renal failure with acute tubular necrosis and prerenal factors present on admission. 2. Gram-negative bacilli with extended spectrum beta-lactamase infection in the urine. 3. Moderate right hydronephrosis, status post cystoscopy and assess right ureteral stent insertion. 4. Severe vomiting and possible acute gastritis present on admission. 5. Hypertension. 6. History of recent urinary tract infection with Escherichia coli. 7. History of tonsillectomy. RECOMMENDATIONS AND DISCUSSION: I recommend to continue current management and continue symptomatic treatment. Otherwise, monitor creatinine closely. The patient is on lactated Ringer. Repeat labs. Infectious Disease evaluation for antibiotic adjustment. The patient is started on Invanz. Guarded prognosis. Further recommendations to follow. MMODL / IJN: [id number] /
--- NOTE | 2024-04-13 09:39 | P.CONS ---
History of Present Illness - Reason for Consult Consult date: 04/12/24 ESBL UTI Requesting physician: Rosenda Rao - Chief Complaint Nausea vomiting times few days on admission - History of Present Illness Patient is a 73-year-old female with a past medical history significant for hypertension migraine headache presenting to the hospital 4 days ago for evaluation of nausea and vomiting and apparently was evaluated on March 10 for similar symptoms at that time the patient did have a CT shows mild hydronephrosis without evidence for obstruction patient on presentation to the hospital was afebrile and no fever have recorded subsequently patient was not tachycardic hypotensive or hypoxic patient did have a white count of 10.4 which is slightly up to 10.21 today BUN and creatinine was elevated though trending down, patient did have a positive UA did have abnormal bladder ultrasound on admission moderate right hydronephrosis for the patient has been evaluated by urology and the patient did have cystoscopy with right ureteral stent placement completed on 04/11/2024 with a urine cultures coming back positive with ESBL E. coli infectious disease was consulted today for further management of antibiotic therapy, patient did have a history of cephalexin allergy which is mostly nausea and vomiting has been on Levaquin Review of Systems Positive point and negatives has been mentioned in the HPI, complete review of systems was performed and all other systems are negative Past Medical History Past Medical History: Hypertension Additional Past Medical History / Comment(s): pt has hx of migraines History of Any Multi-Drug Resistant Organisms: None Reported Past Surgical History: Hernia Repair, Tonsillectomy Past Psychological History: No Psychological Hx Reported Smoking Status: Never smoker Past Alcohol Use History: None Reported Past Drug Use History: None Reported Medications and Allergies Home Medications Medication Instructions Recorded Confirmed Type Labetalol [Trandate] 100 mg PO DAILY 12/29/19 04/09/24 History Lisinopril-Hctz 20-12.5 mg 1 tab PO HS 12/29/19 04/09/24 History [Zestoretic 20-12.5] Acetaminophen Tab [Tylenol Tab] 500 - 1,000 mg PO Q6HR PRN 03/10/24 04/09/24 History Balance Of Nature Fruits 3 cap PO HS 03/10/24 04/09/24 History Balance Of Nature Veggies 3 cap PO HS 03/10/24 04/09/24 History Labetalol [Trandate] 50 mg PO HS 03/10/24 04/09/24 History Multivitamins, Thera [Multivitamin 1 tab PO BID 03/10/24 04/09/24 History (formulary)] Rosuvastatin [Crestor] 20 mg PO HS 03/10/24 04/09/24 History Nitrofurantoin Monohyd/M-Cryst 100 mg PO BID 04/09/24 04/09/24 History [Macrobid] Allergies Allergy/AdvReac Type Severity Reaction Status Date / Time cephalexin [From Keflex] AdvReac Nausea & Verified 04/09/24 12:03 Vomiting Physical Exam Vitals: Vital Signs Temp Pulse Resp BP Pulse Ox 04/12/24 10:30 73 18 04/12/24 07:42 98.0 F 73 18 144/73 96 04/12/24 02:00 97.9 F 64 17 106/58 96 04/11/24 19:52 98.0 F 73 17 123/76 98 04/11/24 17:05 75 154/74 99 04/11/24 16:50 76 155/82 99 04/11/24 16:35 73 146/71 98 04/11/24 16:20 97.4 F L 77 16 131/66 100 04/11/24 16:00 86 14 149/67 99 04/11/24 15:45 72 14 148/67 100 04/11/24 15:30 97.3 F L 73 18 123/60 100 04/11/24 13:35 98.3 F 87 18 124/60 99 Intake and Output 04/11/24 04/12/24 04/12/24 22:59 06:59 14:59 Intake Total 150 Output Total 0 Balance 150 Intake: IV 150 Output: Estimated Blood Loss 0 Other: Voiding Method Toilet Toilet # Voids 1 1 GENERAL DESCRIPTION: Elderly female lying in bed, no distress. No tachypnea or accessory muscle of respiration use. HEENT: Shows Pallor , no scleral icterus. Oral mucous membrane is dry. No pharyngeal erythema or thrush NECK: Trachea central, no thyromegaly. LUNGS: Unlabored breathing. Clear to auscultation anteriorly. No wheeze or crackle. HEART: S1, S2, regular rate and rhythm. No loud murmur ABDOMEN: Soft, no tenderness , guarding or rigidity, no organomegaly EXTREMITIES: No edema of feet. SKIN: No rash, no masses palpable. NEUROLOGICAL: The patient is awake, alert, oriented x3, mood and affect normal. Results CBC & Chem 7: 04/12/24 06:35 04/12/24 06:35 Labs: Abnormal Lab Results - Last 24 Hours (Table) 04/12/24 04/12/24 Range/Units 06:35 06:35 WBC 10.21 H (4.50-10.00) X 10*3/uL RBC 3.11 L (4.10-5.20) X 10*6/uL Hgb 9.1 L (12.0-15.0) g/dL Hct 28.4 L (37.2-46.3) % Plt Count 107 L (140-440) X 10*3/uL Neutrophils # 8.35 H (1.80-7.70) X 10*3/uL Lymphocytes # 0.85 L (0.90-5.00) X 10*3/uL Eosinophils # 0.02 L (0.04-0.35) X 10*3/uL Sodium 134 L (135-145) mmol/L Carbon Dioxide 19.6 L (21.6-31.8) mmol/L Anion Gap 13.40 H (4.00-12.00) mmol/L BUN 35.2 H (9.0-27.0) mg/dL Creatinine 1.6 H (0.6-1.5) mg/dL Est GFR (CKD-EPI) 34 L (>=60) BUN/Creatinine Ratio 22.00 H (12.00-20.00) Ratio Calcium 8.5 L (8.7-10.3) mg/dL Microbiology - Last 24 Hours (Table) 04/09/24 15:58 Urine Culture - Preliminary Urine,Voided Gram Neg Bacilli 04/09/24 14:06 Blood Culture - Preliminary Blood Assessment and Plan (1) Complicated UTI (urinary tract infection) Current Visit: Yes Status: Acute Code(s): N39.0 - URINARY TRACT INFECTION, SITE NOT SPECIFIED SNOMED Code(s): 86005858 (2) Infection due to ESBL-producing Escherichia coli Current Visit: Yes Status: Acute Code(s): A49.8 - OTHER BACTERIAL INFECTIONS OF UNSPECIFIED SITE; Z16.12 - EXTENDED SPECTRUM BETA LACTAMASE (ESBL) RESISTANCE SNOMED Code(s): 862668366 Plan: 1patient with a positive urine culture with ESBL E. coli in this patient who did have a complicated UTI with evidence of moderate right-sided hydronephrosis requiring cystoscopy and right ureteral stent placement. 2documented Keflex allergy which is mostly nausea vomiting more of a side effect than a true allergy and should be taken off the chart. 3discontinue Levaquin. 4we will start the patient on Invanz 1 g daily patient would likely need midline and outpatient antibiotic therapy this has been discussed with the nursing staff to arrange for outpatient antibiotic at the patient seem to be insisting on going home. We will follow on clinical condition and cultures to further adjust medication if needed Thank you for this consultation we will follow the patient along with you Dictation was produced using [employer] dictation software. please excuse any grammatical, word or spelling errors. Time with Patient: Greater than 30
[2024-04-13 09:51] LABS: BUN/Creat Ratio 21.79 Ratio (12.00-20.00); Basophils # (A) 0.03 X 10*3/uL (0.00-0.10); Basophils % (A) 0.3 %; Blood Urea Nitrogen 30.5 mg/dL (9.0-27.0); Calcium 8.4 mg/dL (8.7-10.3); Carbon Dioxide 21.9 mmol/L (21.6-31.8); Chloride 104 mmol/L (96-109); Eosinophils % (A) 2.2 %; Glucose 129 mg/dL (70-110); HCT 28.9 % (37.2-46.3); HGB 9.3 g/dL (12.0-15.0); Lymphocytes # (A) 1.56 X 10*3/uL (0.90-5.00); Lymphocytes % (A) 17.4 %; MCH 29.9 pg (27.0-32.0); MCHC 32.2 g/dL (32.0-37.0); MCV 92.9 FL (80.0-97.0); Mean Platelet Volume 11.4 FL (9.5-12.2); Monocytes # (A) 0.82 X 10*3/uL (0.20-1.00); Monocytes % (A) 9.2 %; NRBC Per 100 WBC 0 X 10*3/uL (0.00-0.01); Neutrophils # (A) 6.31 X 10*3/uL (1.80-7.70); Neutrophils % (A) 70.5 %; Platelet Count 119 X 10*3/uL (140-440); Potassium 4.3 mmol/L (3.5-5.5); RBC 3.11 X 10*6/uL (4.10-5.20); RDW 13.7 % (11.5-14.5); Sodium 136 mmol/L (135-145); WBC 8.96 X 10*3/uL (4.50-10.00)
[2024-04-13] MEDS: SENNOSIDES-DOCUSATE SODIUM 1 EACH TAB PO SCH (10:19)
--- NOTE | 2024-04-13 13:00 | P.PN ---
Subjective Progress Note Date: 04/13/24 Patient is seen for follow-up for acute kidney injury. No new complaints. Urinating well. patient is awake, comfortable, no acute distress alert oriented 3 Examination of the heart S1 and S2 Examination of the lungs bilateral breath sounds are heard Abdomen is soft nontender Examination lower extremity shows no evidence of edema IMPLEMENTATION DIRECTOR exam grossly intact Objective - Vital Signs Vital signs: Vital Signs Temp 98.2 F 04/13/24 08:00 Pulse 72 04/13/24 08:00 Resp 17 04/13/24 08:00 BP 123/72 04/13/24 08:00 Pulse Ox 96 04/13/24 08:00 FiO2 Intake & Output 04/12/24 04/13/24 04/13/24 18:59 06:59 18:59 Intake Total 118 360 118 Balance 118 360 118 Intake: Oral 118 360 118 Other: Voiding Method Toilet Toilet Toilet # Voids 2 - Labs CBC & Chem 7: 04/13/24 05:10 04/13/24 05:10 Labs: Abnormal Lab Results - Last 24 Hours (Table) 04/12/24 04/13/24 04/13/24 Range/Units 11:45 05:10 05:10 RBC 3.11 L (4.10-5.20) X 10*6/uL Hgb 9.3 L (12.0-15.0) g/dL Hct 28.9 L (37.2-46.3) % Plt Count 119 L (140-440) X 10*3/uL BUN 30.5 H (9.0-27.0) mg/dL Est GFR (CKD-EPI) 40 L (>=60) BUN/Creatinine Ratio 21.79 H (12.00-20.00) Ratio Glucose 129 H (70-110) mg/dL Calcium 8.4 L (8.7-10.3) mg/dL Urine Protein Trace H (Negative) Urine Blood Moderate H (Negative) Ur Leukocyte Esterase Large H (Negative) Urine RBC 14 H (0-5) /hpf Urine WBC 48 H (0-5) /hpf Urine Bacteria Rare H (None) /hpf Urine Mucus Rare H (None) /hpf Microbiology - Last 24 Hours (Table) 04/09/24 14:06 Blood Culture - Preliminary Blood 04/09/24 15:58 Urine Culture - Preliminary Urine,Voided Escherichia coli Assessment and Plan Assessment: 1. Acute kidney injury, prerenal. Underlying right hydronephrosis noted as well and urology is on consult. UA shows 1+ protein and moderate blood and WBC 6. JEROMY inhibitor's on hold 2. UTI with urine culture growing E. coli on 03/10/2024 with side effects of nausea and vomiting with keflex. 3. Right hydronephrosis, urology on consult. No history of kidney stones. S/p cystoscopy and right ureteral stent placement on 04/11/2024 4. Hypokalemia associated with vomiting, improved Plan: Off IV fluids, encourage PO intake Continue to hold Jeromy inhibitors and diuretics Repeat labs in a.m. Clear for discharge outpatient follow-up
--- NOTE | 2024-04-13 22:42 | P.PN ---
Subjective Progress Note Date: 04/13/24 Principal diagnosis: Reason for follow-up with ESBL E. coli UTI Patient is a 73-year-old female with a past medical history significant for hypertension migraine headache presenting to the hospital for evaluation of nausea and vomiting patient has been diagnosed with complicated UTI in this patient who is status post cystoscopy and right ureteral stent placement with urine culture positive for ESBL E. coli. On today's evaluation that is 04/13/2024, Patient is afebrile this morning patient denies having any chest pain shortness of breath or cough, the patient is currently on room air, patient denies any abdominal pain no diarrhea no nausea no vomiting. Patient white count normalized to 8.96 creatinine is 1.4 blood culture remains to be negative Objective - Vital Signs Vital signs: Vital Signs Temp 98.2 F 04/13/24 08:00 Pulse 72 04/13/24 08:00 Resp 17 04/13/24 08:00 BP 123/72 04/13/24 08:00 Pulse Ox 96 04/13/24 08:00 FiO2 Intake & Output 04/12/24 04/13/24 04/13/24 18:59 06:59 18:59 Intake Total 118 360 118 Balance 118 360 118 Intake: Oral 118 360 118 Other: Voiding Method Toilet Toilet Toilet # Voids 2 - Exam GENERAL DESCRIPTION: Elderly female up in the chair in no distress RESPIRATORY SYSTEM: Unlabored breathing , decreased breath sounds at bases HEART: S1 S2 regular rate and rhythm , ABDOMEN: Soft , no tenderness EXTREMITIES: No edema feet - Labs CBC & Chem 7: 04/13/24 05:10 04/13/24 05:10 Labs: Abnormal Lab Results - Last 24 Hours (Table) 04/12/24 04/12/24 04/12/24 Range/Units 06:35 06:35 11:45 WBC 10.21 H (4.50-10.00) X 10*3/uL RBC 3.11 L (4.10-5.20) X 10*6/uL Hgb 9.1 L (12.0-15.0) g/dL Hct 28.4 L (37.2-46.3) % Plt Count 107 L (140-440) X 10*3/uL Neutrophils # 8.35 H (1.80-7.70) X 10*3/uL Lymphocytes # 0.85 L (0.90-5.00) X 10*3/uL Eosinophils # 0.02 L (0.04-0.35) X 10*3/uL Sodium 134 L (135-145) mmol/L Carbon Dioxide 19.6 L (21.6-31.8) mmol/L Anion Gap 13.40 H (4.00-12.00) mmol/L BUN 35.2 H (9.0-27.0) mg/dL Creatinine 1.6 H (0.6-1.5) mg/dL Est GFR (CKD-EPI) 34 L (>=60) BUN/Creatinine Ratio 22.00 H (12.00-20.00) Ratio Calcium 8.5 L (8.7-10.3) mg/dL Urine Protein Trace H (Negative) Urine Blood Moderate H (Negative) Ur Leukocyte Esterase Large H (Negative) Urine RBC 14 H (0-5) /hpf Urine WBC 48 H (0-5) /hpf Urine Bacteria Rare H (None) /hpf Urine Mucus Rare H (None) /hpf Microbiology - Last 24 Hours (Table) 04/09/24 14:06 Blood Culture - Preliminary Blood 04/09/24 15:58 Urine Culture - Preliminary Urine,Voided Escherichia coli Assessment and Plan (1) Complicated UTI (urinary tract infection) Current Visit: Yes Status: Acute Code(s): N39.0 - URINARY TRACT INFECTION, SITE NOT SPECIFIED SNOMED Code(s): 46795954 (2) Infection due to ESBL-producing Escherichia coli Current Visit: Yes Status: Acute Code(s): A49.8 - OTHER BACTERIAL INFECTIONS OF UNSPECIFIED SITE; Z16.12 - EXTENDED SPECTRUM BETA LACTAMASE (ESBL) RESISTANCE SNOMED Code(s): 708181953 Plan: 1patient with a positive urine culture with ESBL E. coli in this patient who did have a complicated UTI with evidence of moderate right-sided hydronephrosis requiring cystoscopy and right ureteral stent placement. 2documented Keflex allergy which is mostly nausea vomiting more of a side effect than a true allergy and should be taken off the chart. 3patient to continue with Invanz dose need to be adjusted up keeping in mind improving her kidney function will need a midline and a 10-day course of IV Invanz on discharge Question concern were answered Dictation was produced using [employer] software. please excuse any grammatical, word or spelling errors. Time with Patient: Less than 30
--- NOTE | 2024-04-14 04:27 | PN ---
PROGRESS NOTE DATE OF SERVICE: 04/13/2024 SUBJECTIVE: This is a 73-year-old woman who was admitted with acute renal failure with acute tubular necrosis, also had ESBL grown from the culture. The patient is on Invanz. No chest pain. No palpitations. PHYSICAL EXAMINATION: VITAL SIGNS: Pulse is 85, blood pressure 98/60, respirations 14. CHEST: Clear to auscultation. ABDOMEN: Soft. NERVOUS SYSTEM: Nonfocal.. LABORATORY DATA: Hemoglobin 9.3. Creatinine is normal. ASSESSMENT: 1. Acute renal failure with acute tubular necrosis and prerenal factors present on admission. 2. Extended-spectrum beta-lactamase Escherichia coli infection in the urine and urinary tract infection. 3. Moderate right hydronephrosis status post cystoscopy and right ureteral stent insertion. 4. Severe vomiting and possibly gastritis present on admission. 5. Multiple medical issues. RECOMMENDATIONS: Recommend to continue current medications and continue symptomatic treatment. Otherwise, continue with Invanz. Repeat labs. Symptomatic treatment. Closely follow with ID. Further recommendations to follow. MMODL / IJN: [id number] /
[2024-04-14 09:47] LABS: BUN/Creat Ratio 21.38 Ratio (12.00-20.00); Blood Urea Nitrogen 27.8 mg/dL (9.0-27.0); Calcium 8.4 mg/dL (8.7-10.3); Chloride 103 mmol/L (96-109); Glucose 106 mg/dL (70-110); Sodium 139 mmol/L (135-145)
[2024-04-14 09:56] LABS: Basophils # (A) 0.03 X 10*3/uL (0.00-0.10); Basophils % (A) 0.4 %; Eosinophils # (A) 0.29 X 10*3/uL (0.04-0.35); Eosinophils % (A) 3.7 %; HCT 28.7 % (37.2-46.3); HGB 9.3 g/dL (12.0-15.0); Lymphocytes # (A) 1.66 X 10*3/uL (0.90-5.00); Lymphocytes % (A) 21.2 %; MCH 29.8 pg (27.0-32.0); MCHC 32.4 g/dL (32.0-37.0); Mean Platelet Volume 10.7 FL (9.5-12.2); Monocytes # (A) 0.76 X 10*3/uL (0.20-1.00); Monocytes % (A) 9.7 %; NRBC Per 100 WBC 0 X 10*3/uL (0.00-0.01); Neutrophils # (A) 5.06 X 10*3/uL (1.80-7.70); Neutrophils % (A) 64.6 %; Platelet Count 148 X 10*3/uL (140-440); RBC 3.12 X 10*6/uL (4.10-5.20); RDW 13.7 % (11.5-14.5); WBC 7.83 X 10*3/uL (4.50-10.00)
--- NOTE | 2024-04-14 11:46 | P.PN ---
Subjective Progress Note Date: 04/14/24 Patient is seen for follow-up for acute kidney injury. No new complaints. Urinating well. patient is awake, comfortable, no acute distress alert oriented 3 Examination of the heart S1 and S2 Examination of the lungs bilateral breath sounds are heard Abdomen is soft nontender Examination lower extremity shows no evidence of edema HEATING SYSTEMS INSTALLER exam grossly intact Objective - Vital Signs Vital signs: Vital Signs Temp 98.2 F 04/14/24 07:00 Pulse 71 04/14/24 07:00 Resp 16 04/14/24 07:00 BP 128/75 04/14/24 07:00 Pulse Ox 98 04/14/24 07:00 FiO2 Intake & Output 04/13/24 04/14/24 04/14/24 18:59 06:59 18:59 Intake Total 354 Balance 354 Intake: Oral 354 Other: Voiding Method Toilet Toilet # Voids 5 1 # Bowel Movements 1 - Labs CBC & Chem 7: 04/14/24 04:40 04/14/24 04:40 Labs: Abnormal Lab Results - Last 24 Hours (Table) 04/14/24 04/14/24 Range/Units 04:40 04:40 RBC 3.12 L (4.10-5.20) X 10*6/uL Hgb 9.3 L (12.0-15.0) g/dL Hct 28.7 L (37.2-46.3) % BUN 27.8 H (9.0-27.0) mg/dL Est GFR (CKD-EPI) 44 L (>=60) BUN/Creatinine Ratio 21.38 H (12.00-20.00) Ratio Calcium 8.4 L (8.7-10.3) mg/dL Microbiology - Last 24 Hours (Table) 04/09/24 15:58 Urine Culture - Final Urine,Voided Escherichia coli Enterococcus faecalis 04/12/24 11:45 Urine Culture - Final Urine,Voided Assessment and Plan Assessment: 1. Acute kidney injury, prerenal. Underlying right hydronephrosis noted as well and urology is on consult. UA shows 1+ protein and moderate blood and WBC 6. JEROMY inhibitor's on hold 2. UTI with urine culture growing E. coli on 03/10/2024 with side effects of nausea and vomiting with keflex. 3. Right hydronephrosis, urology on consult. No history of kidney stones. S/p cystoscopy and right ureteral stent placement on 04/11/2024 4. Hypokalemia associated with vomiting, improved Plan: Off IV fluids, encourage PO intake Continue to hold Jeromy inhibitors and diuretics Repeat labs in a.m. Clear for discharge outpatient follow-up
--- NOTE | 2024-04-14 14:07 | P.PN ---
Subjective Progress Note Date: 04/14/24 Principal diagnosis: Right Hydronephrosis, UTI Mrs. Flores underwent right ureteral stent insertion on 04/11/2024. She was found to have a 1.5 cm segment of significant ureteral narrowing with hydroureteronephrosis proximal to this. Urine culture has shown ESBL E. coli. She is receiving IV antibiotics and feels much better. Discharge home tomorrow on IV Invanz is anticipated. Objective - Vital Signs Vital signs: Vital Signs Temp 98.2 F 04/14/24 01:39 Pulse 80 04/14/24 01:39 Resp 15 04/14/24 01:39 BP 126/76 04/14/24 01:39 Pulse Ox 97 04/14/24 01:39 FiO2 Intake & Output 04/13/24 04/14/24 04/14/24 18:59 06:59 18:59 Intake Total 354 Balance 354 Intake: Oral 354 Other: Voiding Method Toilet Toilet # Voids 5 1 # Bowel Movements 1 - Constitutional General appearance: Present: average body habitus, cooperative, no acute distress - Psychiatric Psychiatric: Present: A&O x's 3 - Labs CBC & Chem 7: 04/14/24 04:40 04/14/24 04:40 Labs: Abnormal Lab Results - Last 24 Hours (Table) 04/13/24 04/13/24 Range/Units 05:10 05:10 RBC 3.11 L (4.10-5.20) X 10*6/uL Hgb 9.3 L (12.0-15.0) g/dL Hct 28.9 L (37.2-46.3) % Plt Count 119 L (140-440) X 10*3/uL BUN 30.5 H (9.0-27.0) mg/dL Est GFR (CKD-EPI) 40 L (>=60) BUN/Creatinine Ratio 21.79 H (12.00-20.00) Ratio Glucose 129 H (70-110) mg/dL Calcium 8.4 L (8.7-10.3) mg/dL Microbiology - Last 24 Hours (Table) 04/09/24 15:58 Urine Culture - Final Urine,Voided Escherichia coli Enterococcus faecalis 04/12/24 11:45 Urine Culture - Final Urine,Voided Assessment and Plan (1) Unspecified hydronephrosis Current Visit: Yes Status: Acute Code(s): N13.30 - UNSPECIFIED HYDRONEPHROSIS SNOMED Code(s): 75541813 Plan: The patient's serum creatinine level is improved to 1.3. She will be discharged home on IV Invanz. Arrangements will be made for her to undergo cystoscopy with right ureteroscopy in approximately 3 weeks. The differential diagnosis includes urothelial carcinoma and ureteral stricture. Extrinsic compression of the ureter appears to be less likely, given that no masses were seen on CT scan.
[2024-04-15 07:46] VITALS: RESP 15
--- NOTE | 2024-04-15 07:56 | P.PN ---
Subjective Progress Note Date: 04/14/24 Principal diagnosis: Reason for follow-up with ESBL E. coli UTI Patient is a 73-year-old female with a past medical history significant for hypertension migraine headache presenting to the hospital for evaluation of nausea and vomiting patient has been diagnosed with complicated UTI in this patient who is status post cystoscopy and right ureteral stent placement with urine culture positive for ESBL E. coli. On today's evaluation that is 04/14/2024,the patient denies any fever or any chills, patient is breathing comfortably on room air, the patient denies chest pain shortness of breath and no significant cough, patient denies abdominal pain, no nausea vomiting or diarrhea., feeling better. Patient white count 7.83 creatinine is 1.3 Objective - Vital Signs Vital signs: Vital Signs Temp 98.1 F 04/14/24 20:00 Pulse 88 04/14/24 20:00 Resp 16 04/14/24 20:00 BP 126/75 04/14/24 20:00 Pulse Ox 99 04/14/24 20:00 FiO2 Intake & Output 04/14/24 04/14/24 04/15/24 06:59 18:59 06:59 Intake Total 354 Balance 354 Intake: Oral 354 Other: Voiding Method Toilet Toilet Toilet # Voids 1 4 # Bowel Movements 1 - Exam GENERAL DESCRIPTION: Elderly female up in the chair in no distress RESPIRATORY SYSTEM: Unlabored breathing , decreased breath sounds at bases HEART: S1 S2 regular rate and rhythm , ABDOMEN: Soft , no tenderness EXTREMITIES: No edema feet - Labs CBC & Chem 7: 04/14/24 04:40 04/14/24 04:40 Labs: Abnormal Lab Results - Last 24 Hours (Table) 04/14/24 04/14/24 Range/Units 04:40 04:40 RBC 3.12 L (4.10-5.20) X 10*6/uL Hgb 9.3 L (12.0-15.0) g/dL Hct 28.7 L (37.2-46.3) % BUN 27.8 H (9.0-27.0) mg/dL Est GFR (CKD-EPI) 44 L (>=60) BUN/Creatinine Ratio 21.38 H (12.00-20.00) Ratio Calcium 8.4 L (8.7-10.3) mg/dL Microbiology - Last 24 Hours (Table) 04/09/24 14:06 Blood Culture - Final Blood 04/09/24 15:58 Urine Culture - Final Urine,Voided Escherichia coli Enterococcus faecalis 04/12/24 11:45 Urine Culture - Final Urine,Voided Assessment and Plan (1) Complicated UTI (urinary tract infection) Current Visit: Yes Status: Acute Code(s): N39.0 - URINARY TRACT INFECTION, SITE NOT SPECIFIED SNOMED Code(s): 83545210 (2) Infection due to ESBL-producing Escherichia coli Current Visit: Yes Status: Acute Code(s): A49.8 - OTHER BACTERIAL INFECTIONS OF UNSPECIFIED SITE; Z16.12 - EXTENDED SPECTRUM BETA LACTAMASE (ESBL) RESISTANCE SNOMED Code(s): 545001611 Plan: 1patient with a positive urine culture with ESBL E. coli in this patient who did have a complicated UTI with evidence of moderate right-sided hydronephrosis requiring cystoscopy and right ureteral stent placement. 2documented Keflex allergy which is mostly nausea vomiting more of a side effect than a true allergy and should be taken off the chart. 3patient to continue with Invanz dose will be adjusted up keeping in mind improvement in the kidney function she will get a midline and a 10-day course of IV Invanz on discharge discussed with the family as well as the urologist at the bedside at the time of rounding this afternoon Dictation was produced using [employer] dictation software. please excuse any grammatical, word or spelling errors. Time with Patient: Less than 30
[2024-04-15 08:40] LABS: BUN/Creat Ratio 18.31 Ratio (12.00-20.00); Blood Urea Nitrogen 23.8 mg/dL (9.0-27.0); Calcium 8.8 mg/dL (8.7-10.3); Chloride 100 mmol/L (96-109); Glucose 121 mg/dL (70-110); Potassium 3.7 mmol/L (3.5-5.5); Sodium 139 mmol/L (135-145)
[2024-04-15 08:50] LABS: HCT 29.6 % (37.2-46.3); HGB 9.4 g/dL (12.0-15.0); MCH 29.3 pg (27.0-32.0); MCHC 31.8 g/dL (32.0-37.0); MCV 92.2 FL (80.0-97.0); Mean Platelet Volume 10.4 FL (9.5-12.2); NRBC Per 100 WBC 0 X 10*3/uL (0.00-0.01); Platelet Count 155 X 10*3/uL (140-440); RBC 3.21 X 10*6/uL (4.10-5.20); RDW 13.7 % (11.5-14.5); WBC 7.68 X 10*3/uL (4.50-10.00)
[2024-04-15 08:51] LABS: Basophils # (A) 0.03 X 10*3/uL (0.00-0.10); Basophils % (A) 0.4 %; Eosinophils % (A) 3.9 %; Lymphocytes # (A) 1.55 X 10*3/uL (0.90-5.00); Lymphocytes % (A) 20.2 %; Monocytes # (A) 0.73 X 10*3/uL (0.20-1.00); Monocytes % (A) 9.5 %; Neutrophils # (A) 5.03 X 10*3/uL (1.80-7.70); Neutrophils % (A) 65.5 %
[2024-04-15] MEDS: ERTAPENEM 1 GM in SODIUM CHLORIDE 0.9% 50 ML IVPB SCH (08:55)
--- NOTE | 2024-04-15 09:36 | PN ---
PROGRESS NOTE DATE OF SERVICE: 04/14/2024 SUBJECTIVE: This 73-year-old woman was admitted with acute renal failure, also had acute tubular necrosis. The patient had ESBL E. coli. No chest pain. No palpitation. PHYSICAL EXAMINATION: VITAL SIGNS: On exam, pulse is 82, blood pressure 119/70, respirations 16. CHEST: Clear to auscultation. ABDOMEN: Soft. NERVOUS SYSTEM: Nonfocal. LABORATORY DATA: Creatinine is normal. ASSESSMENT: 1. Acute renal failure with acute tubular necrosis and prerenal factors, present on admission. 2. ESBL E. coli in the urine and UTI. 3. Moderate right hydronephrosis, status post cystoscopy and right ureteral stent insertion. 4. Severe vomiting and possibly gastritis, present on admission. 5. Multiple medical issues. RECOMMENDATIONS: Recommend to continue current meds and management, possible PICC line. Repeat labs. Outpatient antibiotics. Closely follow with Infectious Disease. Further recommendations to follow. MMPAMELA / LAKEN: [id number] /
--- NOTE | 2024-04-15 09:56 | P.PN ---
Subjective Patient is seen in follow-up for acute kidney injury. Renal function improved from admission. Admits to good urine output. No vomiting or diarrhea. Oral intake is good. Vital signs are stable. General: No acute distress. HEENT: Head exam is unremarkable. LUNGS: No audible rhonchi or wheezes. HEART: Rate and Rhythm are regular. ABDOMEN: Nontender. EXTREMITITES: No edema. Objective - Vital Signs Vital signs: Vital Signs Temp 98 F 04/15/24 07:00 Pulse 79 04/15/24 07:00 Resp 15 04/15/24 07:00 BP 128/74 04/15/24 07:00 Pulse Ox 99 04/15/24 07:00 FiO2 Intake & Output 04/14/24 04/15/24 04/15/24 18:59 06:59 18:59 Intake Total 354 Balance 354 Intake: Oral 354 Other: Voiding Method Toilet Toilet # Voids 4 2 # Bowel Movements 1 - Labs CBC & Chem 7: 04/15/24 04:44 04/15/24 04:44 Labs: Abnormal Lab Results - Last 24 Hours (Table) 04/14/24 04/15/24 04/15/24 Range/Units 04:40 04:44 04:44 RBC 3.12 L 3.21 L (4.10-5.20) X 10*6/uL Hgb 9.3 L 9.4 L (12.0-15.0) g/dL Hct 28.7 L 29.6 L (37.2-46.3) % MCHC 31.8 L (32.0-37.0) g/dL Est GFR (CKD-EPI) 44 L (>=60) Glucose 121 H (70-110) mg/dL Microbiology - Last 24 Hours (Table) 04/09/24 14:06 Blood Culture - Final Blood Assessment and Plan Plan: Assessment: 1. Acute kidney injury secondary to vasomotor nephropathy with component of obstructive uropathy. Renal function improved. Creatinine 2.5 on admission and stable at 1.3 today. Creatinine 1.09 dated August 14, 2022. 2. Right-sided hydronephrosis status post cystoscopy with right ureteral stent insertion April 11, 2024. 3. E. coli and Enterococcus UTI on antibiotics. ID following. 4. Hypokalemia associated with vomiting on admission. Improved. Plan: Encouraged oral intake. Avoid nephrotoxins. Follow-up outpatient 1 to 2 weeks postdischarge.
[2024-04-15 15:03] VITALS: BP 120/75; PULSE 83; TEMP 97.7
--- NOTE | 2024-04-16 09:08 | P.PN ---
Subjective Progress Note Date: 04/15/24 Principal diagnosis: Reason for follow-up with ESBL E. coli UTI Patient is a 73-year-old female with a past medical history significant for hypertension migraine headache presenting to the hospital for evaluation of nausea and vomiting patient has been diagnosed with complicated UTI in this patient who is status post cystoscopy and right ureteral stent placement with urine culture positive for ESBL E. coli. On today's evaluation that is 04/15/2024,the patient remains to be afebrile, patient is on room air not requiring supplemental oxygen and denies any shortness of breath no chest pain or cough.Patient denies having any nausea or vomiting, no abdominal pain and no diarrhea has been reported, feeling better wants to go home. Patient white count 7.68, creatinine is 1.3 Objective - Vital Signs Vital signs: Vital Signs Temp 98 F 04/15/24 07:00 Pulse 79 04/15/24 07:00 Resp 15 04/15/24 07:00 BP 128/74 04/15/24 07:00 Pulse Ox 99 04/15/24 07:00 FiO2 Intake & Output 04/14/24 04/15/24 04/15/24 18:59 06:59 18:59 Intake Total 354 Balance 354 Intake: Oral 354 Other: Voiding Method Toilet Toilet # Voids 4 2 # Bowel Movements 1 - Exam GENERAL DESCRIPTION: Elderly female up in the chair in no distress RESPIRATORY SYSTEM: Unlabored breathing , decreased breath sounds at bases HEART: S1 S2 regular rate and rhythm , ABDOMEN: Soft , no tenderness EXTREMITIES: No edema feet - Labs CBC & Chem 7: 04/15/24 04:44 04/15/24 04:44 Labs: Abnormal Lab Results - Last 24 Hours (Table) 04/15/24 04/15/24 Range/Units 04:44 04:44 RBC 3.21 L (4.10-5.20) X 10*6/uL Hgb 9.4 L (12.0-15.0) g/dL Hct 29.6 L (37.2-46.3) % MCHC 31.8 L (32.0-37.0) g/dL Est GFR (CKD-EPI) 44 L (>=60) Glucose 121 H (70-110) mg/dL Microbiology - Last 24 Hours (Table) 04/09/24 14:06 Blood Culture - Final Blood Assessment and Plan (1) Complicated UTI (urinary tract infection) Status: Acute Code(s): N39.0 - URINARY TRACT INFECTION, SITE NOT SPECIFIED SNOMED Code(s): 33398154 (2) Infection due to ESBL-producing Escherichia coli Status: Acute Code(s): A49.8 - OTHER BACTERIAL INFECTIONS OF UNSPECIFIED SITE; Z16.12 - EXTENDED SPECTRUM BETA LACTAMASE (ESBL) RESISTANCE SNOMED Code(s): 010981447 Plan: 1patient with a positive urine culture with ESBL E. coli in this patient who did have a complicated UTI with evidence of moderate right-sided hydronephrosis requiring cystoscopy and right ureteral stent placement. 2documented Keflex allergy which is mostly nausea vomiting more of a side effect than a true allergy and should be taken off the chart. 3patient did got the midline outpatient Invanz has been going for the patient will be able to go home and close outpatient follow-up Dictation was produced using [employer] dictation software. please excuse any grammatical, word or spelling errors. Time with Patient: Less than 30
--- NOTE | 2024-04-19 09:23 | P.DS ---
Providers Date of admission: 04/09/24 08:31 Expected date of discharge: 04/15/24 Attending physician: Genet Hernandez Consults: 04/09/24 00:03 Consult Physician Urgent Consulting Provider: Bryant Lechuga Consult Reason/Comments: MP Do you want consulting provider notified?: Yes, Notify in am Consult Physician Urgent Consulting Provider: Funmilayo Estrada Consult Reason/Comments: MP Do you want consulting provider notified?: Yes, Notify in am 04/12/24 11:33 Consult Physician Urgent Consulting Provider: Roderick Irizarry Consult Reason/Comments: esbl, ecoli, uti Do you want consulting provider notified?: Yes Primary care physician: Werner Blair [facility] Course: Final diagnosis Acute renal failure with acute tubular necrosis and prerenal factors, present on admission ESBL E. coli in the urine with urinary tract infection, present on admission and recent urinary tract infection outpatient on antibiotics Moderate right hydronephrosis, status post cystoscopy and right ureteral stent placement Severe vomiting and possibly gastritis, present on admission GI prophylaxis DVT prophylaxis Full code Discharge disposition Patient is being discharged in a stable condition with guarded prognosis to home. Patient will follow-up with Dr. Blair in the outpatient setting upon discharge. Patient is to continue with IV antibiotics per ID recommendations with close outpatient follow-up as well as follow-up with urology and nephrology As scheduled. Total time taken is greater than 35 minutes. Hospital course This is a 73-year-old female who was recently admitted with feelings of dehydration and weakness and noted to have acute renal failure with acute tubular necrosis being closely monitored. Patient being followed by nephrology along with urology as patient recently had a urinary tract infection maintained on Keflex although having worsening symptoms developed acute kidney injury and also noted to have moderate right hydronephrosis. Patient evaluated by urology and is status post cystoscopy with a right ureteral stent placement. Urine repeat cultures showing E. coli with ESBL and infectious disease following. Patient will be continued on IV antibiotics for short course on discharge and close outpatient follow-up. Patient reports to feeling improved and kidney functions are improving and would like to go home. Repeat labs in the next few days and close outpatient follow-up with urology, nephrology, infectious disease. Patient also instructed to follow-up with primary care provider this week. Please refer to other consultation notes for further HPI. Currently no reports of chest pain, shortness of breath, or palpitations. Patient is afebrile. No reports of nausea or vomiting and patient is tolerating diet. Patient will be discharged home today. Guarded prognosis. Physical exam: Gen: This is a 73-year-old female who is awake, alert and oriented x 3, well- developed, well-nourished, elderly appearing HEENT: Head is atraumatic, normocephalic. Pupils equal, round. Sclerae is anicteric. NECK: Supple. No JVD. No lymphadenopathy. No thyromegaly. LUNGS: Clear to auscultation. No wheezes or rhonchi. No intercostal retractions. HEART: Regular rate and rhythm. No murmur. ABDOMEN: Soft. Bowel sounds are present. No masses. No tenderness. EXTREMITIES: No pedal edema. No calf tenderness. NEUROLOGICAL: Patient is awake, alert and oriented x3. Cranial nerves 2 through 12 are grossly intact. Please refer to medication reconciliation sheet for a list of medications. The impression and plan of care has been dictated by Rosenda Rao, Nurse Practitioner as directed. Dr. David MD I have performed a history and examination and MDM of this patient, discussed the same with the dictator, and agree with the dictator's assessment and plan as written ,documented as a scribe. Based on total visit time, I have performed more than 50% of the visit. Patient Condition at Discharge: Fair Plan - Discharge Summary Discharge Rx Participant: No New Discharge Prescriptions: New Ertapenem [INVanz] 1 gm IVPB DAILY 10 Days #10 each Sennosides-Docusate Sodium [Senokot-S] 1 each PO BID PRN #20 tab PRN Reason: Constipation Continue Labetalol [Trandate] 100 mg PO DAILY Acetaminophen Tab [Tylenol] 500 - 1,000 mg PO Q6HR PRN PRN Reason: Pain Rosuvastatin [Crestor] 20 mg PO HS Balance Of Nature Fruits 3 cap PO HS Multivitamins, Thera [Multivitamin (formulary)] 1 tab PO BID Labetalol [Trandate] 50 mg PO HS Balance Of Nature Veggies 3 cap PO HS Nitrofurantoin Monohyd/M-Cryst [Macrobid] 100 mg PO BID Discontinued Lisinopril-Hctz 20-12.5 mg [Zestoretic 20-12.5] 1 tab PO HS Discharge Medication List Labetalol [Trandate] 100 mg PO DAILY 12/29/19 [History] Acetaminophen Tab [Tylenol] 500 - 1,000 mg PO Q6HR PRN 03/10/24 [History] Balance Of Nature Fruits 3 cap PO HS 03/10/24 [History] Balance Of Nature Veggies 3 cap PO HS 03/10/24 [History] Labetalol [Trandate] 50 mg PO HS 03/10/24 [History] Multivitamins, Thera [Multivitamin (formulary)] 1 tab PO BID 03/10/24 [History] Rosuvastatin [Crestor] 20 mg PO HS 03/10/24 [History] Nitrofurantoin Monohyd/M-Cryst [Macrobid] 100 mg PO BID 04/09/24 [History] Ertapenem [INVanz] 1 gm IVPB DAILY 10 Days #10 each 04/15/24 [Rx] Sennosides-Docusate Sodium [Senokot-S] 1 each PO BID PRN #20 tab 04/15/24 [Rx] Follow up Appointment(s)/Referral(s): Funmilayo Estrada MD [STAFF PHYSICIAN] - 1 Week () Bryant Lechuga MD [STAFF PHYSICIAN] - 1 Week (Office will call patient to schedule.) Werner Blair MD [Primary Care Provider] - 1-2 days [facility] [NON-STAFF] - 04/16/24 3:30 pm Ambulatory/Diagnostic Orders: Basic Metabolic Panel [LAB.AMB] Time Frame: 3 Days, Location: None Selected Patient Instructions/Handouts: Acute Kidney Injury (DC), Urinary Tract Infection in Women (DC), Midline Catheter (DC) Activity/Diet/Wound Care/Special Instructions: Activity limited until follow-up Follow-up with primary care provider on discharge Follow-up urology this week Follow-up with nephrology in 1 week Continue with IV antibiotics for the next 10 days Continue holding blood pressure medication lisinopril/hydrochlorothiazide until follow-up Follow-up repeat labs to monitor kidney functions in 2 to 3 days Discharge Disposition: HOME SELF-CARE
== END 2024-04-15 16:22 | disposition home or self-care (01) | DRG 660 ==
LOC: EC 20:44 → 6NMEDSUR 04-09 02:09 → OBSVTOIN 04-09 08:31
PROVIDERS: ADMIT Hospitalist; ATTEND Hospitalist
PROC: BT1D1ZZ Fluoroscopy of Right Kidney, Ureter and Bladder using Low Osmolar Contrast (ICD-10-PCS; principal; 2024-04-11 14:00)
PROC: 0T768DZ Dilation of Right Ureter with Intraluminal Device, Via Natural or Artificial Opening Endoscopic (ICD-10-PCS; principal; 2024-04-11 14:00)
PROC: 05HY33Z Insertion of Infusion Device into Upper Vein, Percutaneous Approach (ICD-10-PCS; 2024-04-15 14:10)
DX: N13.6 Pyonephrosis (principal); Z16.12 Extended spectrum beta lactamase (ESBL) resistance; N17.0 Acute kidney failure with tubular necrosis; I10 Essential (primary) hypertension; B95.2 Enterococcus as the cause of diseases classified elsewhere; B96.20 Unspecified Escherichia coli [E. coli] as the cause of diseases classified elsewhere; E87.6 Hypokalemia; R31.9 Hematuria, unspecified; R11.2 Nausea with vomiting, unspecified; Z79.899 Other long term (current) drug therapy; Z87.440 Personal history of urinary (tract) infections; Z88.1 Allergy status to other antibiotic agents
CPT/HCPCS: 36410; 36415; 71046; 74420; 76770; 76937; 80048; 80053; 81001; 82150; 83690; 83735; 84484; 85025; 87040; 87077; 87086; 87186; 93005; 96361; 96374; 96375; 99285

== ENCOUNTER 2024-05-01 15:38 | Inpatient (IN) | payer MEDICARE ==
[2024-05-01] MEDS: SODIUM CHLORIDE 0.9% 1,000 ML IV STA (17:21)
[2024-05-01] MEDS: ONDANSETRON 4 MG/2 ML VIAL IVP STA (17:21)
[2024-05-01 17:33] LABS: Basophils % (A) 0 %; Eosinophils # (A) 0.2 k/uL (0-0.7); Eosinophils % (A) 2 %; HCT 30.5 % (34.0-46.0); HGB 10.2 gm/dL (11.4-16.0); Lymphocytes # (A) 1.1 k/uL (1.0-4.8); Lymphocytes % (A) 10 %; MCH 30.5 pg (25.0-35.0); MCHC 33.5 g/dL (31.0-37.0); MCV 91.1 fL (80.0-100.0); Mean Platelet Volume 7.5; Monocytes # (A) 0.9 k/uL (0-1.0); Monocytes % (A) 8 %; Neutrophils # (A) 8.8 k/uL (1.3-7.7); Neutrophils % (A) 79 %; Platelet Count 179 k/uL (150-450); RBC 3.35 m/uL (3.80-5.40); RDW 13.6 % (11.5-15.5); WBC 11.1 k/uL (3.8-10.6)
[2024-05-01 18:03] LABS: ALT 16 U/L (4-34); AST 26 U/L (14-36); African American GFR (CKD) 35 (>60 ml/min/1.73 sqM); Albumin 3.9 g/dL (3.5-5.0); Alkaline Phosphatase 72 U/L (38-126); Amylase 56 U/L (30-110); Anion Gap 10 mmol/L; Blood Urea Nitrogen 65 mg/dL (7-17); Calcium 9.2 mg/dL (8.4-10.2); Carbon Dioxide 38 mmol/L (22-30); Chloride 89 mmol/L (98-107); Glucose 95 mg/dL (74-99); Lipase 96 U/L (23-300); Non-African American GFR(CKD) 30 (>60 ml/min/1.73 sqM); Sodium 137 mmol/L (137-145); Total Bilirubin 0.9 mg/dL (0.2-1.3); Total Protein 6.6 g/dL (6.3-8.2)
--- NOTE | 2024-05-01 18:03 | ED ---
General Adult HPI - General Chief complaint: Nausea/Vomiting/Diarrhea Stated complaint: abn lbs Time Seen by Provider: 05/01/24 16:33 Source: patient, RN notes reviewed Mode of arrival: ambulatory Limitations: no limitations - History of Present Illness Initial comments: 73-year-old female presents to the emergency department for evaluation of nausea and vomiting. Patient reports that this has been going on for around 2 weeks. She notes that she has not had a bowel movement in the past 2 weeks. She denies passing any flatulence. She states that she has not been able to eat much because of this. - Related Data Home Medications Medication Instructions Recorded Confirmed Labetalol [Trandate] 100 mg PO DAILY 12/29/19 05/01/24 Acetaminophen Tab [Tylenol] 500 - 1,000 mg PO Q6HR PRN 03/10/24 05/01/24 Balance Of Nature Fruits 3 cap PO HS 03/10/24 05/01/24 Balance Of Nature Veggies 3 cap PO HS 03/10/24 05/01/24 Labetalol [Trandate] 50 mg PO HS 03/10/24 05/01/24 Multivitamins, Thera [Multivitamin 1 tab PO BID 03/10/24 05/01/24 (formulary)] Rosuvastatin [Crestor] 20 mg PO HS 03/10/24 05/01/24 Lisinopril-Hctz 20-12.5 mg 1 tab PO HS 05/01/24 05/01/24 [Zestoretic 20-12.5] Sennosides-Docusate Sodium 1 tab PO BID PRN 05/01/24 05/01/24 [Senokot-S] ondansetron HCL [Zofran] 8 mg PO Q12HR PRN 05/01/24 05/01/24 Allergies Allergy/AdvReac Type Severity Reaction Status Date / Time cephalexin [From Keflex] AdvReac Nausea & Verified 05/01/24 18:19 Vomiting Review of Systems ROS Statement: Those systems with pertinent positive or pertinent negative responses have been documented in the HPI. ROS Other: All systems not noted in ROS Statement are negative. Past Medical History Past Medical History: Hypertension Additional Past Medical History / Comment(s): pt has hx of migraines History of Any Multi-Drug Resistant Organisms: None Reported Date of last positivie culture/infection: 04/09/24 MDRO Source:: urine Past Surgical History: Hernia Repair, Tonsillectomy Past Psychological History: No Psychological Hx Reported Smoking Status: Never smoker Past Alcohol Use History: None Reported Past Drug Use History: None Reported General Exam Limitations: no limitations General appearance: alert, in no apparent distress Head exam: Present: atraumatic, normocephalic, normal inspection Eye exam: Present: normal appearance, PERRL, EOMI. Absent: scleral icterus, conjunctival injection, periorbital swelling ENT exam: Present: normal exam, mucous membranes moist Neck exam: Present: normal inspection. Absent: tenderness, meningismus, lymphadenopathy Respiratory exam: Present: normal lung sounds bilaterally. Absent: respiratory distress, wheezes, rales, rhonchi, stridor Cardiovascular Exam: Present: regular rate, normal rhythm, normal heart sounds. Absent: systolic murmur, diastolic murmur, rubs, gallop, clicks GI/Abdominal exam: Present: distended. Absent: tenderness Extremities exam: Present: normal inspection, full ROM, normal capillary refill. Absent: tenderness, pedal edema, joint swelling, calf tenderness Neurological exam: Present: alert, oriented X3 Psychiatric exam: Present: normal affect, normal mood Skin exam: Present: warm, dry, intact, normal color. Absent: rash Course Vital Signs 05/01/24 05/01/24 15:45 18:00 Temperature 98.6 F 98.8 F Pulse Rate 79 72 Respiratory 20 16 Rate Blood Pressure 139/83 148/78 O2 Sat by Pulse 96 98 Oximetry Medical Decision Making - Medical Decision Making Was pt. sent in by a medical professional or institution (Dr. PA, PHARMACY ANALYST, urgent care, hospital, or penitentiary...) When possible be specific @ -No Did you speak to anyone other than the patient for history (EMS, parent, family, police, friend...)? What history was obtained from this source @ -No Did you review nursing and triage notes (agree or disagree)? Why? @ -I reviewed and agree with nursing and triage notes Were old charts reviewed (outside hosp., previous admission, EMS record, old EKG, old radiological studies, urgent care reports/EKG's, penitentiary records)? Report findings @ -No old charts were reviewed Differential Diagnosis (chest pain, altered mental status, abdominal pain women, abdominal pain men, vaginal bleeding, weakness, fever, dyspnea, syncope, headache, dizziness, GI bleed, back pain, seizure, CVA, palpatations, mental health, musculoskeletal)? @ -Differential Abdominal Pain Women: Appendicitis, Cholecystitis, diverticulosis, ischemic bowel, pancreatitis, hepatitis, UTI, gastroenteritis, AAA, incarcerated hernia, bowel obstruction, constipation, inflammatory bowel, hepatitis, peptic ulcer disease, splenic infarction, perforated viscus, vulvitis, ovarian torsion, PID, kidney stone, placenta abruption, this is not meant to be an all-inclusive list EKG interpreted by me (3pts min.). @ -EKG 1608 shows sinus rhythm rate 75, AZ 150, QRS 134, QT/QTc 030774 X-rays interpreted by me (1pt min.). @ -None done CT interpreted by me (1pt min.). @ -CT abdomen pelvis obtained shows Dilated esophagus and stomach cannot exclude underlying malrotation U/S interpreted by me (1pt. min.). @ -None done What testing was considered but not performed or refused? (CT, X-rays, U/S, labs)? Why? @ -None What meds were considered but not given or refused? Why? @ -None Did you discuss the management of the patient with other professionals (professionals i.e. , PA, PHARMACY ANALYST, lab, RT, psych nurse, social work job titles, rn rehab, teacher, welfare officer, rifle case repairer)? Give summary @ -Case discussed with Dr. Cheung who recommends NG tube, medical admission with her on consultation Was smoking cessation discussed for >3mins.? @ -No Was critical care preformed (if so, how long)? @ -No Were there social determinants of health that impacted care today? How? (Homelessness, low income, unemployed, alcoholism, drug addiction, transportation, low edu. Level, literacy, decrease access to med. care, [facility], rehab)? @ -No Was there de-escalation of care discussed even if they declined (Discuss DNR or withdrawal of care, Hospice)? DNR status @ -No What co-morbidities impacted this encounter? (DM, HTN, Smoking, COPD, CAD, Cancer, CVA, ARF, Chemo, Hep., AIDS, mental health diagnosis, sleep apnea, m orbid obesity)? @ -None Was patient admitted / discharged? Hospital course, mention meds given and route, prescriptions, significant lab abnormalities, going to OR and other pertinent info. @ -Admitted. Patient presented to the emergency department for evaluation of nausea and vomiting. She states that she has not had a bowel movement since 04-15-2022. Laboratory studies obtained revealing no significant leukocytosis.Hypokalemia potassium of 3.0 patient received 40 mill equivalents of K-Dur, patient also has BUN of 65, creatinine 1.7 she was administered 1 L bolus and started on maintenance fluids. CT abdomen pelvis was obtained revealing evidence for gastric outlet obstruction unable to exclude malrotation. The case was discussed with Dr. Cheung who is agreeable with NG tube and recommends medical admission with medical consultation. Patient understanding agreeable with plan. Patient stable at time of admission. Case discussed with Dr. Gutierrez who discussed with Dr. Mcgowan Undiagnosed new problem with uncertain prognosis? @ -No Drug Therapy requiring intensive monitoring for toxicity (Heparin, Nitro, Insulin, Cardizem)? @ -No Were any procedures done? @ -No Diagnosis/symptom? @ -Gastric outlet obstruction Acute, or Chronic, or Acute on Chronic? @ -Acute Uncomplicated (without systemic symptoms) or Complicated (systemic symptoms)? @ -Uncomplicated Side effects of treatment? @ -No Exacerbation, Progression, or Severe Exacerbation? @ -No Poses a threat to life or bodily function? How? (Chest pain, USA, [place], pneumonia, PE, COPD, DKA, ARF, appy, cholecystitis, CVA, Diverticulitis, Homicidal, Suicidal, threat to staff... and all critical care pts) @ -No - Lab Data Result diagrams: 05/01/24 17:15 05/01/24 17:15 Lab Results 05/01/24 05/01/24 05/01/24 Range/Units 17:15 17:15 17:15 WBC 11.1 H (3.8-10.6) k/uL RBC 3.35 L (3.80-5.40) m/uL Hgb 10.2 L (11.4-16.0) gm/dL Hct 30.5 L (34.0-46.0) % MCV 91.1 (80.0-100.0) fL MCH 30.5 (25.0-35.0) pg MCHC 33.5 (31.0-37.0) g/dL RDW 13.6 (11.5-15.5) % Plt Count 179 (150-450) k/uL MPV 7.5 Neutrophils % 79 % Lymphocytes % 10 % Monocytes % 8 % Eosinophils % 2 % Basophils % 0 % Neutrophils # 8.8 H (1.3-7.7) k/uL Lymphocytes # 1.1 (1.0-4.8) k/uL Monocytes # 0.9 (0-1.0) k/uL Eosinophils # 0.2 (0-0.7) k/uL Basophils # 0.0 (0-0.2) k/uL Sodium 137 (137-145) mmol/L Potassium 3.0 L (3.5-5.1) mmol/L Chloride 89 L (98-107) mmol/L Carbon Dioxide 38 H (22-30) mmol/L Anion Gap 10 mmol/L BUN 65 H (7-17) mg/dL Creatinine 1.70 H (0.52-1.04) mg/dL Est GFR (CKD-EPI)AfAm 35 (>60 ml/min/1.73 sqM) Est GFR (CKD-EPI)NonAf 30 (>60 ml/min/1.73 sqM) Glucose 95 (74-99) mg/dL Plasma Lactic Acid Avinash 1.2 (0.7-2.0) mmol/L Calcium 9.2 (8.4-10.2) mg/dL Magnesium (1.6-2.3) mg/dL Total Bilirubin 0.9 (0.2-1.3) mg/dL AST 26 (14-36) U/L ALT 16 (4-34) U/L Alkaline Phosphatase 72 (38-126) U/L Troponin I (0.000-0.034) ng/mL Total Protein 6.6 (6.3-8.2) g/dL Albumin 3.9 (3.5-5.0) g/dL Amylase 56 (30-110) U/L Lipase 96 (23-300) U/L 05/01/24 05/01/24 Range/Units 17:15 18:10 WBC (3.8-10.6) k/uL RBC (3.80-5.40) m/uL Hgb (11.4-16.0) gm/dL Hct (34.0-46.0) % MCV (80.0-100.0) fL MCH (25.0-35.0) pg MCHC (31.0-37.0) g/dL RDW (11.5-15.5) % Plt Count (150-450) k/uL MPV Neutrophils % % Lymphocytes % % Monocytes % % Eosinophils % % Basophils % % Neutrophils # (1.3-7.7) k/uL Lymphocytes # (1.0-4.8) k/uL Monocytes # (0-1.0) k/uL Eosinophils # (0-0.7) k/uL Basophils # (0-0.2) k/uL Sodium (137-145) mmol/L Potassium (3.5-5.1) mmol/L Chloride (98-107) mmol/L Carbon Dioxide (22-30) mmol/L Anion Gap mmol/L BUN (7-17) mg/dL Creatinine (0.52-1.04) mg/dL Est GFR (CKD-EPI)AfAm (>60 ml/min/1.73 sqM) Est GFR (CKD-EPI)NonAf (>60 ml/min/1.73 sqM) Glucose (74-99) mg/dL Plasma Lactic Acid Avinash (0.7-2.0) mmol/L Calcium (8.4-10.2) mg/dL Magnesium 2.2 (1.6-2.3) mg/dL Total Bilirubin (0.2-1.3) mg/dL AST (14-36) U/L ALT (4-34) U/L Alkaline Phosphatase (38-126) U/L Troponin I 0.023 (0.000-0.034) ng/mL Total Protein (6.3-8.2) g/dL Albumin (3.5-5.0) g/dL Amylase (30-110) U/L Lipase (23-300) U/L Disposition Clinical Impression: Gastric outlet obstruction Disposition: ADMITTED IP TO THIS [facility] Condition: Stable Is patient prescribed a controlled substance at d/c from ED?: No Referrals: Werner Blair MD [Primary Care Provider] - 1-2 days
[2024-05-01] MEDS: POTASSIUM CHLORIDE ER 20 MEQ TAB.ER PO STA (18:35)
--- NOTE | 2024-05-01 18:56 | CT ---
EXAMINATION TYPE: CT abdomen pelvis wo con DATE OF EXAM: 05/01/2024 HISTORY: abdominal pain, constipation CT DLP: 294.2 mGycm. Automated Exposure Control for Dose Reduction was Utilized. TECHNIQUE: CT scan of the abdomen and pelvis is performed without oral or IV contrast. COMPARISON: Prior CT abdomen and pelvis March 10, 2024 FINDINGS: Within the limitations of a non-contrast study, the following observations are made. LUNG BASES: Stable small to tiny right pleural effusion. Stable small to tiny pericardial effusion. C urrent study has dilated fluid-filled distal esophagus. LIVER/GB: Suspect small dependent gallstones and/or gallbladder sludge. Gallbladder has no new surrou nding inflammatory change. PANCREAS: No significant abnormality is seen. SPLEEN: No significant abnormality is seen. ADRENALS: No significant abnormality is seen. KIDNEYS: Persistent moderate right-sided hydronephrosis despite new double-J ureter stent which appea rs grossly satisfactory in position. Left kidney is now more inferior and medial in position versus p rior study. Possible 1 mm nonobstructing calculus coronal image 51 BOWEL: Fluid and gas distended stomach occupy a significant portion of the abdomen. No obvious dilata tion of the duodenal sweep. Cannot identify ligament of Treitz definitively in normal position. There are nondilated small and large bowel loops in the lower abdomen and pelvis. GENITAL ORGANS: No gross abnormality seen. LYMPH NODES: No definitive new greater than 1cm abdominal or pelvic lymph nodes are appreciated. OSSEOUS STRUCTURES: Dextroconvex scoliosis centered at L2 level is redemonstrated. Multilevel moderat e to severe spurring and disc space narrowing in the thoracolumbar spine is redemonstrated. OTHER: Moderate amount of free fluid in the pelvis remains present similar to prior axial image 54. M ild calcified plaque in the ectatic abdominal aorta is redemonstrated IMPRESSION: 1. Dilated esophagus and stomach on current study. Consider gastric outlet obstruction. Cannot exclud e underlying malrotation. Advise nasogastric tube placement and surgical evaluation. 2. Persistent moderate right-sided hydronephrosis despite new double-J ureter stent. Consider follow- up. [facility], , 05/01/2024 6:53 PM
[2024-05-01] MEDS ORDERED: MORPHINE SULFATE 4 MG/ML SYRINGE IV PRN (20:27)
[2024-05-01] MEDS ORDERED: ONDANSETRON 4 MG/2 ML VIAL IVP PRN (20:27)
[2024-05-01] MEDS ORDERED: NALOXONE 0.4 MG/ML 1 ML VIAL IV PRN (20:27)
[2024-05-01] MEDS: SODIUM CHLORIDE 0.9% 1,000 ML IV SCH (21:24)
[2024-05-01 22:40] LABS: Appearance,Urine Clear (Clear); Bacteria,Urine Rare /hpf; Bilirubin,Urine Negative (Negative); Blood,Urine Moderate (Negative); Color,Urine Colorless; Glucose,Urine (UA) Negative (Negative); Hyphae Yeast, Urine Rare /hpf; Ketones,Urine 1+ (Negative); Leukocyte Esterase,Urine Moderate (Negative); Nitrite,Urine Negative (Negative); PH, Urine 6.5 (5.0-8.0); Protein,Urine Trace (Negative); RBC,Urine 30 /hpf (0-5); Specific Gravity,Urine 1.018 (1.001-1.035); Squamous Epithelial Cell,Urine 1 /hpf (0-4); Urobilinogen,Urine <2.0 mg/dL (<2.0); WBC,Urine 22 /hpf (0-5)
--- NOTE | 2024-05-02 00:42 | XR ---
EXAM: XR Chest, 1 View CLINICAL HISTORY: XR Reason: NG placement TECHNIQUE: Frontal view of the chest. COMPARISON: April 08, 2024 FINDINGS: Lungs: Unremarkable. No consolidation. Pleural space: Unremarkable. No pneumothorax. Heart: The cardiac silhouette is mildly enlarged. Mediastinum: Unremarkable. Normal mediastinal contour. Bones/joints: Mild disc phytosis in the mid to lower thoracic spine. Mild osteoarthritic changes of the right shoulder. No acute fracture. Tubes, lines and devices: There is an NG tube in place with the tip just barely gastroesophageal junction into the stomach. Stomach is distended with gas and fluid and borderline dilated. Upper abdomen: There is no pneumoperitoneum under the diaphragm. IMPRESSION: 1. There is an NG tube in place with the tip just barely gastroesophageal junction into the stomach. Stomach is distended with gas and fluid and borderline dilated. 2. The cardiac silhouette is mildly enlarged.
[2024-05-02 08:48] LABS: Basophils % (A) 0 %; Eosinophils # (A) 0.3 k/uL (0-0.7); Eosinophils % (A) 4 %; HCT 26.9 % (34.0-46.0); Hypochromasia Slight; Lymphocytes # (A) 0.6 k/uL (1.0-4.8); Lymphocytes % (A) 7 %; MCH 30.2 pg (25.0-35.0); MCHC 32.2 g/dL (31.0-37.0); MCV 93.7 fL (80.0-100.0); Mean Platelet Volume 7.3; Monocytes # (A) 0.6 k/uL (0-1.0); Monocytes % (A) 7 %; Neutrophils # (A) 6.7 k/uL (1.3-7.7); Neutrophils % (A) 81 %; Platelet Count 134 k/uL (150-450); RBC 2.87 m/uL (3.80-5.40); RDW 13.5 % (11.5-15.5); WBC 8.3 k/uL (3.8-10.6)
[2024-05-02 08:53] LABS: HGB 8.7 gm/dL (11.4-16.0)
[2024-05-02 09:30] LABS: African American GFR (CKD) 45 (>60 ml/min/1.73 sqM); Anion Gap 8 mmol/L; Blood Urea Nitrogen 48 mg/dL (7-17); Calcium 8.2 mg/dL (8.4-10.2); Carbon Dioxide 32 mmol/L (22-30); Chloride 96 mmol/L (98-107); Glucose 82 mg/dL (74-99); Non-African American GFR(CKD) 39 (>60 ml/min/1.73 sqM); Potassium 3.1 mmol/L (3.5-5.1); Sodium 136 mmol/L (137-145)
[2024-05-02] MEDS: POTASSIUM CHLORIDE 10 MEQ in WATER FOR INJECTION 1 100ML.BAG IVPB SCH (11:05)
--- NOTE | 2024-05-02 11:08 | XR ---
EXAMINATION TYPE: XR chest 1V portable DATE OF EXAM: 05/02/2024 9:57 AM COMPARISON: 05/01/2024 CLINICAL INDICATION: Female, 73 years old with history of NG placement, , FINDINGS: Heart upper limits of normal in size. Satisfactory G-tube. Mild hyperinflation. No consolidation or p leural effusion. Clinical thickness rotator cuff tear right shoulder. IMPRESSION: Borderline cardiomegaly. Possible underlying COPD. No acute process otherwise seen. [facility], , 05/02/2024 11:06 AM
[2024-05-02] MEDS ORDERED: ACETAMINOPHEN IV (For NPO) 700 MG in EMPTY BAG 1 BAG IVPB PRN (12:31)
--- NOTE | 2024-05-02 12:33 | P.HPIM ---
History of Present Illness 72-year-old female came with complaints of nausea vomiting abdominal pain has been going on for 2 weeks. Her last bowel movement was normal 19th passing gas has not been eating well CT of the abdomen was done which showed gastric outlet obstruction patient is also severely dehydrated with serum creatinine of 1.76 baseline within normal limits patient has electrolyte abnormalities as well as from dehydration patient is presently receiving IV fluids, has an NG tube. General surgery will evaluate the patient. REVIEW OF SYSTEMS: All other systems are negative except those mentioned in the HPI PHYSICAL EXAMINATION: GENERAL: The patient is alert and oriented x3, not in any acute distress. Thin built female appears to be dehydrated clinically HEENT: Pupils are round and equally reacting to light. EOMI. No scleral icterus. No conjunctival pallor. Normocephalic, atraumatic. No pharyngeal erythema. No thyromegaly. CARDIOVASCULAR: S1 and S2 present. No murmurs, rubs, or gallops. PULMONARY: Chest is clear to auscultation, no wheezing or crackles. ABDOMEN: Soft, nontender, nondistended, normoactive bowel sounds. No palpable organomegaly. MUSCULOSKELETAL: No joint swelling or deformity. EXTREMITIES: No cyanosis, clubbing, or pedal edema. NEUROLOGICAL: Gross neurological examination did not reveal any focal deficits. SKIN: No rashes. Assessment and plan -Nausea vomiting secondary to gastric outlet obstruction will need endoscopy IV fluids will be continued -Severe dehydration -Acute renal failure prerenal azotemia secondary to severe dehydration IV fluids will be continued -Hypokalemia secondary to nausea vomiting potassium will be replaced -Leukocytosis reactive -Constipation will use Dulcolax suppository -Asymptomatic bacteriuria will not require any antibiotics -Hyperlipidemia continue with atorvastatin DVT prophylaxis: Lovenox Past Medical History Past Medical History: Hypertension Additional Past Medical History / Comment(s): pt has hx of migraines History of Any Multi-Drug Resistant Organisms: None Reported Date of last positivie culture/infection: 04/09/24 MDRO Source:: urine Past Surgical History: Hernia Repair, Tonsillectomy Additional Past Surgical History / Comment(s): Stent placed in ureter due to blockage on 04/21 Past Anesthesia/Blood Transfusion Reactions: Previous Problems w/ Anesthesia Additional Past Anesthesia/Blood Transfusion Reaction / Comment(s): Pt does not wake up well from anesthesia, last time was given twilight anesthesia because of this Past Psychological History: No Psychological Hx Reported Smoking Status: Never smoker Past Alcohol Use History: None Reported Past Drug Use History: None Reported Medications and Allergies Home Medications Medication Instructions Recorded Confirmed Type Labetalol [Trandate] 100 mg PO DAILY 12/29/19 05/01/24 History Acetaminophen Tab [Tylenol] 500 - 1,000 mg PO Q6HR PRN 03/10/24 05/01/24 History Balance Of Nature Fruits 3 cap PO HS 03/10/24 05/01/24 History Balance Of Nature Veggies 3 cap PO HS 03/10/24 05/01/24 History Labetalol [Trandate] 50 mg PO HS 03/10/24 05/01/24 History Multivitamins, Thera [Multivitamin 1 tab PO BID 03/10/24 05/01/24 History (formulary)] Rosuvastatin [Crestor] 20 mg PO HS 03/10/24 05/01/24 History Lisinopril-Hctz 20-12.5 mg 1 tab PO HS 05/01/24 05/01/24 History [Zestoretic 20-12.5] Sennosides-Docusate Sodium 1 tab PO BID PRN 05/01/24 05/01/24 History [Senokot-S] ondansetron HCL [Zofran] 8 mg PO Q12HR PRN 05/01/24 05/01/24 History Allergies Allergy/AdvReac Type Severity Reaction Status Date / Time cephalexin [From Keflex] AdvReac Nausea & Verified 05/01/24 18:19 Vomiting Physical Exam Vitals: Vital Signs Temp Pulse Pulse Resp BP BP Pulse Ox 05/02/24 07:18 98.2 F 16 126/75 94 L 05/02/24 01:35 98.2 F 79 16 113/70 93 L 05/01/24 23:20 98.0 F 80 18 130/77 98 05/01/24 22:41 78 18 113/57 95 05/01/24 21:22 80 18 131/64 98 05/01/24 18:00 98.8 F 72 16 148/78 98 05/01/24 15:45 98.6 F 79 20 139/83 96 Intake and Output 05/01/24 05/02/24 05/02/24 22:59 06:59 14:59 Intake Total 700 Output Total 400 Balance 300 Intake: Intake, IV Titration 700 Amount Sodium Chloride 0.9% 1, 700 000 ml @ 100 mls/hr IV . Q10H [facility] Rx#:[id number] Output: Gastric Drainage 400 Other: Voiding Method Toilet Toilet # Voids 1 Weight 46.266 kg 46.266 kg Results CBC & Chem 7: 05/02/24 08:28 05/02/24 08:28 Labs: Abnormal Lab Results - Last 24 Hours (Table) 05/01/24 05/01/24 05/01/24 Range/Units 16:59 17:15 17:15 WBC 11.1 H (3.8-10.6) k/uL RBC 3.35 L (3.80-5.40) m/uL Hgb 10.2 L (11.4-16.0) gm/dL Hct 30.5 L (34.0-46.0) % Plt Count (150-450) k/uL Neutrophils # 8.8 H (1.3-7.7) k/uL Lymphocytes # (1.0-4.8) k/uL Sodium (137-145) mmol/L Potassium 3.0 L (3.5-5.1) mmol/L Chloride 89 L (98-107) mmol/L Carbon Dioxide 38 H (22-30) mmol/L BUN 65 H (7-17) mg/dL Creatinine 1.70 H (0.52-1.04) mg/dL Calcium (8.4-10.2) mg/dL Urine Protein Trace H (Negative) Urine Ketones 1+ H (Negative) Urine Blood Moderate H (Negative) Ur Leukocyte Esterase Moderate H (Negative) Urine RBC 30 H (0-5) /hpf Urine WBC 22 H (0-5) /hpf Urine Bacteria Rare H (None) /hpf 05/02/24 05/02/24 Range/Units 08:28 08:28 WBC (3.8-10.6) k/uL RBC 2.87 L (3.80-5.40) m/uL Hgb 8.7 L D (11.4-16.0) gm/dL Hct 26.9 L (34.0-46.0) % Plt Count 134 L (150-450) k/uL Neutrophils # (1.3-7.7) k/uL Lymphocytes # 0.6 L (1.0-4.8) k/uL Sodium 136 L (137-145) mmol/L Potassium 3.1 L (3.5-5.1) mmol/L Chloride 96 L (98-107) mmol/L Carbon Dioxide 32 H (22-30) mmol/L BUN 48 H (7-17) mg/dL Creatinine 1.36 H (0.52-1.04) mg/dL Calcium 8.2 L (8.4-10.2) mg/dL Urine Protein (Negative) Urine Ketones (Negative) Urine Blood (Negative) Ur Leukocyte Esterase (Negative) Urine RBC (0-5) /hpf Urine WBC (0-5) /hpf Urine Bacteria (None) /hpf Thrombosis Risk Factor Assmnt - Choose All That Apply Other Risk Factors: Yes Each Risk Factor Represents 2 Points: Age 61-74 years Other congenital or acquired thrombophilia - If yes, enter type in comment: No Thrombosis Risk Factor Assessment Total Risk Factor Score: 2 Thrombosis Risk Factor Assessment Level: Low Risk
[2024-05-02] MEDS: PANTOPRAZOLE 40 MG/10 ML VIAL IVP SCH ×2 (13:15→21:01)
[2024-05-02] MEDS: bisacodyL 10 MG SUPP RECTAL STA (13:15)
--- NOTE | 2024-05-02 13:15 | P.GSCN ---
History of Present Illness Consult date: 05/02/24 History of present illness: CHIEF COMPLAINT: Nausea and vomiting HISTORY OF PRESENT ILLNESS: This is a 73-year-old female who presented to the hospital with complaints of intractable nausea and vomiting for the past 2 weeks. Patient also reporting no bowel movements for almost 2 weeks as well. Patient had a CT scan abdomen pelvis that reported dilated esophagus and stomach. Consider gastric outlet obstruction. Cannot exclude underlying malrotation. Patient has NG tube in place with 400 mL output. Patient reports some symptomatic relief with the placement of the NG tube. She reports abdominal distention. Denies any abdominal pain. Past surgical history includes umbilical hernia repair. PAST MEDICAL HISTORY: See list. PAST SURGICAL HISTORY: See list. MEDICATIONS: See list. ALLERGIES: See list. SOCIAL HISTORY: No illicit drug use. REVIEW OF SYSTEMS: CONSTITUTIONAL: Denies fever or chills. HEENT: Denies blurred vision, vision changes, or eye pain. Denies hemoptysis ENDOCRINE: Denies heat or cold intolerance. CARDIOVASCULAR: Denies chest pain or pressure. RESPIRATORY: No shortness of breath. GASTROINTESTINAL: Please refer to HPI otherwise unremarkable NEURO: Denies history of seizures. PSYCH: No depression or suicidal ideation HEMATOLOGIC: Denies bleeding disorders. LYMPHATIC: The patient denies any lumps and bumps around the neck. GENITOURINARY: Denies any blood in urine or increased urinary frequency. MUSCULOSKELETAL: Denies myalgias. Denies joint swelling. Denies decreased range of motion beyond patients baseline. SKIN: Denies pruitis. Denies rash. PHYSICAL EXAM: VITAL SIGNS: Reviewed GENERAL: Well-developed in no acute distress. HEENT: No sclera icterus. Extraocular movements grossly intact. Moist buccal m ucosa. Head is atraumatic, normocephalic. Hears conversational speech. No nasal drainage. NECK: Supple without lymphadenopathy. CHEST: Non-labored respirations and equal bilateral excursions. CARDIOVASCULAR: Palpable 2+ radial pulses. ABDOMEN: Soft. Mildly distended. Nontender. Tympanic. No rebound or guarding noted. MUSCULOSKELETAL: No clubbing or cyanosis. NEUROLOGIC: No focal or lateralizing signs. Cranial nerves II through XII grossly intact. PSYCH: Appropriate affect. Alert and oriented to person, place and time. SKIN: Well perfused. Good skin turgor. LABORATORY DATA: WBC 11.1 down to 8.3 Hgb 10.2 down to 8.7 platelets 134 Sodium 136 potassium is 3.1 creatinine 1.36 magnesium 2.2 IMAGING: CT scan abdomen pelvis reports dilated esophagus and stomach. Consider gastric outlet obstruction. Cannot exclude underlying malrotation. Persistent moderate right sided hydronephrosis despite new double-J ureter stent. ASSESSMENT: 1. Possible gastric outlet obstruction. Dilated esophagus and stomach with possible gastric outlet obstruction and cannot exclude underlying malrotation noted on CT PLAN: -Patient scheduled for EGD today with Dr. Cheung -Continue NG tube for decompression -Potassium being replaced Physician Frick[employer] Checker note has been reviewed by physician. Signing provider agrees with the documented findings, assessment, and plan of care. Past Medical History Past Medical History: Hypertension Additional Past Medical History / Comment(s): pt has hx of migraines History of Any Multi-Drug Resistant Organisms: None Reported Year Discovered:: 04/09/24 MDRO Source:: urine Past Surgical History: Hernia Repair, Tonsillectomy Additional Past Surgical History / Comment(s): Stent placed in ureter due to blockage on 04/21 Past Anesthesia/Blood Transfusion Reactions: Previous Problems w/ Anesthesia Additional Past Anesthesia/Blood Transfusion Reaction / Comm: Pt does not wake up well from anesthesia, last time was given twilight anesthesia because of this Past Psychological History: No Psychological Hx Reported Smoking Status: Never smoker Past Alcohol Use History: None Reported Past Drug Use History: None Reported Medications and Allergies Home Medications Medication Instructions Recorded Confirmed Type Labetalol [Trandate] 100 mg PO DAILY 12/29/19 05/01/24 History Acetaminophen Tab [Tylenol] 500 - 1,000 mg PO Q6HR PRN 03/10/24 05/01/24 History Balance Of Nature Fruits 3 cap PO HS 03/10/24 05/01/24 History Balance Of Nature Veggies 3 cap PO HS 03/10/24 05/01/24 History Labetalol [Trandate] 50 mg PO HS 03/10/24 05/01/24 History Multivitamins, Thera [Multivitamin 1 tab PO BID 03/10/24 05/01/24 History (formulary)] Rosuvastatin [Crestor] 20 mg PO HS 03/10/24 05/01/24 History Lisinopril-Hctz 20-12.5 mg 1 tab PO HS 05/01/24 05/01/24 History [Zestoretic 20-12.5] Sennosides-Docusate Sodium 1 tab PO BID PRN 05/01/24 05/01/24 History [Senokot-S] ondansetron HCL [Zofran] 8 mg PO Q12HR PRN 05/01/24 05/01/24 History Allergies Allergy/AdvReac Type Severity Reaction Status Date / Time cephalexin [From Keflex] AdvReac Nausea & Verified 05/01/24 18:19 Vomiting Surgical - Exam Vital Signs Temp Pulse Resp BP Pulse Ox 98.6 F 79 20 139/83 96 05/01/24 15:45 05/01/24 15:45 05/01/24 15:45 05/01/24 15:45 05/01/24 15:45 Results - Labs 05/02/24 08:28 05/02/24 08:28 Abnormal Lab Results - Last 24 Hours (Table) 05/01/24 05/01/24 05/01/24 Range/Units 16:59 17:15 17:15 WBC 11.1 H (3.8-10.6) k/uL RBC 3.35 L (3.80-5.40) m/uL Hgb 10.2 L (11.4-16.0) gm/dL Hct 30.5 L (34.0-46.0) % Plt Count (150-450) k/uL Neutrophils # 8.8 H (1.3-7.7) k/uL Lymphocytes # (1.0-4.8) k/uL Sodium (137-145) mmol/L Potassium 3.0 L (3.5-5.1) mmol/L Chloride 89 L (98-107) mmol/L Carbon Dioxide 38 H (22-30) mmol/L BUN 65 H (7-17) mg/dL Creatinine 1.70 H (0.52-1.04) mg/dL Calcium (8.4-10.2) mg/dL Urine Protein Trace H (Negative) Urine Ketones 1+ H (Negative) Urine Blood Moderate H (Negative) Ur Leukocyte Esterase Moderate H (Negative) Urine RBC 30 H (0-5) /hpf Urine WBC 22 H (0-5) /hpf Urine Bacteria Rare H (None) /hpf 05/02/24 05/02/24 Range/Units 08:28 08:28 WBC (3.8-10.6) k/uL RBC 2.87 L (3.80-5.40) m/uL Hgb 8.7 L D (11.4-16.0) gm/dL Hct 26.9 L (34.0-46.0) % Plt Count 134 L (150-450) k/uL Neutrophils # (1.3-7.7) k/uL Lymphocytes # 0.6 L (1.0-4.8) k/uL Sodium 136 L (137-145) mmol/L Potassium 3.1 L (3.5-5.1) mmol/L Chloride 96 L (98-107) mmol/L Carbon Dioxide 32 H (22-30) mmol/L BUN 48 H (7-17) mg/dL Creatinine 1.36 H (0.52-1.04) mg/dL Calcium 8.2 L (8.4-10.2) mg/dL Urine Protein (Negative) Urine Ketones (Negative) Urine Blood (Negative) Ur Leukocyte Esterase (Negative) Urine RBC (0-5) /hpf Urine WBC (0-5) /hpf Urine Bacteria (None) /hpf Diabetes panel 05/01/24 05/02/24 Range/Units 17:15 08:28 Sodium 137 136 L (137-145) mmol/L Potassium 3.0 L 3.1 L (3.5-5.1) mmol/L Chloride 89 L 96 L (98-107) mmol/L Carbon Dioxide 38 H 32 H (22-30) mmol/L BUN 65 H 48 H (7-17) mg/dL Creatinine 1.70 H 1.36 H (0.52-1.04) mg/dL Glucose 95 82 (74-99) mg/dL Calcium 9.2 8.2 L (8.4-10.2) mg/dL AST 26 (14-36) U/L ALT 16 (4-34) U/L Alkaline Phosphatase 72 (38-126) U/L Total Protein 6.6 (6.3-8.2) g/dL Albumin 3.9 (3.5-5.0) g/dL Calcium panel 05/01/24 05/02/24 Range/Units 17:15 08:28 Calcium 9.2 8.2 L (8.4-10.2) mg/dL Albumin 3.9 (3.5-5.0) g/dL Pituitary panel 05/01/24 05/02/24 Range/Units 17:15 08:28 Sodium 137 136 L (137-145) mmol/L Potassium 3.0 L 3.1 L (3.5-5.1) mmol/L Chloride 89 L 96 L (98-107) mmol/L Carbon Dioxide 38 H 32 H (22-30) mmol/L BUN 65 H 48 H (7-17) mg/dL Creatinine 1.70 H 1.36 H (0.52-1.04) mg/dL Glucose 95 82 (74-99) mg/dL Calcium 9.2 8.2 L (8.4-10.2) mg/dL Adrenal panel 05/01/24 05/02/24 Range/Units 17:15 08:28 Sodium 137 136 L (137-145) mmol/L Potassium 3.0 L 3.1 L (3.5-5.1) mmol/L Chloride 89 L 96 L (98-107) mmol/L Carbon Dioxide 38 H 32 H (22-30) mmol/L BUN 65 H 48 H (7-17) mg/dL Creatinine 1.70 H 1.36 H (0.52-1.04) mg/dL Glucose 95 82 (74-99) mg/dL Calcium 9.2 8.2 L (8.4-10.2) mg/dL Total Bilirubin 0.9 (0.2-1.3) mg/dL AST 26 (14-36) U/L ALT 16 (4-34) U/L Alkaline Phosphatase 72 (38-126) U/L Total Protein 6.6 (6.3-8.2) g/dL Albumin 3.9 (3.5-5.0) g/dL
[2024-05-02 14:32] VITALS: BMI 18.0
[2024-05-02] MEDS: IV FLUID CONTINUATION 400 ML IV ONE (15:00)
[2024-05-02] MEDS: SODIUM CHLORIDE 0.9% 500 ML 500 ML IV ONE (15:19)
[2024-05-02] MEDS ORDERED: PROPOFOL 10 MG/ML 20 ML VIAL IV ONE (15:20)
--- NOTE | 2024-05-02 16:35 | P.PCN ---
Date of Procedure: 05/02/24 Description of Procedure: PREOPERATIVE DIAGNOSIS: Acute gastric outlet obstruction Underweight, BMI 18.1 Acute nausea and vomiting POSTOPERATIVE DIAGNOSIS: Acute gastric obstruction Underweight, BMI 18.1 Acute nausea and vomiting Gastroesophageal reflux disease with erosive esophagitis Acute esophageal ulceration Chronic gastritis without active bleeding OPERATION: Esophagogastroduodenoscopy with decompression of stomach, 300 cc Esophagogastroduodenoscopy with placement of 18 Taiwanese nasogastric tube SURGEON: Nancy Cheung MD ANESTHESIA: MAC. INDICATIONS: The patient is a 73-year-old female who presents with intractable nausea and vomiting and gastric outlet obstruction with a 8 Taiwanese nasogastric tube. Benefits and risks of the procedure were described. Informed consent was obtained. DESCRIPTION: The patient was brought into the endoscopy suite and laid in the left lateral decubitus position. An Olympus gastroscope was passed along the posterior oropharynx down to the distal esophagus where the squamocolumnar junction was encountered at 35 cm from the incisors. Moderate gastric contents including fluid was found within the stomach with a clogged 8 Taiwanese nasogastric tube. Over 300 cc of gastric contact was aspirated from the stomach using upper endoscopy. Despite multiple attempts the duodenum was not intubated with moderate liquid content within the stomach. The pediatric nasogastric tube was removed. An 18 Taiwanese nasogastric tube was placed under direct realization into the stomach. Retroflexion of the scope confirmed Hill grade 3 lower esophageal valve. The squamocolumnar junction demonstrated LA grade C erosive esophagitis with ulceration. The stomach was desufflated. The patient tolerated the procedure well. FINDINGS: Squamocolumnar junction 35 cm from the incisors. Diaphragmatic hiatus at 35 cm. Hill grade 3 lower esophageal valve. LA grade C erosive esophagitis. Chronic gastritis along upper pole of stomach removal of pediatric nasogastric tube for 18 Taiwanese nasogastric tube in stomach RECOMMENDATIONS: Repeat upper endoscopy after stomach completely decompressed
[2024-05-02] MEDS: SIMETHICONE 40 MG/0.6 ML DROPS 2,000 MG/30 ML BOTTLE PO SCH (17:41)
[2024-05-02] MEDS: NA PHOS,M-B/NA PHOS,DI-BA 133 ML ENEMA RECTAL ONE (17:41)
[2024-05-02] MEDS: SODIUM CHLORIDE 0.9% 1,000 ML IV ONE (17:58)
[2024-05-02] MEDS: SUCRALFATE 1 GM TAB PO SCH (21:01)
[2024-05-02] MEDS: ATORVASTATIN 40 MG TAB PO SCH (21:01)
[2024-05-03] MEDS: ENOXAPARIN 30 MG/0.3 ML SYRINGE SQ SCH (08:38)
[2024-05-03 09:14] LABS: BUN/Creat Ratio 22.62 Ratio (12.00-20.00); Blood Urea Nitrogen 29.4 mg/dL (9.0-27.0); Calcium 7.6 mg/dL (8.7-10.3); Carbon Dioxide 21.2 mmol/L (21.6-31.8); Chloride 106 mmol/L (96-109); Glucose 75 mg/dL (70-110); Magnesium 1.8 mg/dL (1.5-2.4); Potassium 4.2 mmol/L (3.5-5.5); Sodium 142 mmol/L (135-145)
--- NOTE | 2024-05-03 11:45 | P.PN ---
Subjective Progress Note Date: 05/03/24 SURGICAL PROGRESS NOTE CHIEF COMPLAINT: Possible gastric outlet obstruction HISTORY OF PRESENT ILLNESS: Patient status post EGD with decompression of the stomach results showed acute gastric obstruction, GERD with erosive esophagitis, acute esophageal ulceration, chronic gastritis without active bleeding. NG tube with 250 mL output. Patient denies any abdominal pain. Denies any nausea. Patient reports she is feeling better. She is having flatus. She did have a bowel movement. PHYSICAL EXAM: VITAL SIGNS: Reviewed. GENERAL: Well-developed in no acute distress. ABDOMEN: Soft. Nondistended. Nontender. NEUROLOGIC: Alert and oriented. Cranial nerves II through XII grossly intact. ASSESSMENT: Acute gastric obstruction Underweight, BMI 18.1 Acute nausea and vomiting Gastroesophageal reflux disease with erosive esophagitis Acute esophageal ulceration Chronic gastritis without active bleeding PLAN: -Continue NG tube for decompression -Continue Carafate and Protonix -Keep patient n.p.o. except for ice chips and popsicles -Repeat upper endoscopy after stomach completely decompressed -Further recommendations forthcoming per surgeon Physician [employer] Supervisor note has been reviewed by physician. Signing provider agrees with the documented findings, assessment, and plan of care. Objective - Vital Signs Vital signs: Vital Signs Temp 98 F 05/03/24 07:09 Pulse 85 05/03/24 07:09 Resp 16 05/03/24 07:09 BP 129/77 05/03/24 07:09 Pulse Ox 95 05/03/24 07:09 FiO2 Intake & Output 05/02/24 05/03/24 05/03/24 18:59 06:59 18:59 Intake Total 400 1000 Output Total 1 251 Balance 399 749 Weight 46.266 kg Intake: IV 400 Intake, IV Titration 1000 Amount Sodium Chloride 0.9% 1, 1000 000 ml @ 100 mls/hr IV . Q10H [facility] Rx#:[id number] Oral 0 Output: Gastric Drainage 250 Stool 1 1 Other: Voiding Method Toilet Toilet # Voids 6 1 # Bowel Movements 1 - Labs CBC & Chem 7: 05/02/24 08:28 05/03/24 05:35 Labs: Abnormal Lab Results - Last 24 Hours (Table) 05/03/24 Range/Units 05:35 Carbon Dioxide 21.2 L (21.6-31.8) mmol/L Anion Gap 14.80 H (4.00-12.00) mmol/L BUN 29.4 H (9.0-27.0) mg/dL Est GFR (CKD-EPI) 44 L (>=60) BUN/Creatinine Ratio 22.62 H (12.00-20.00) Ratio Calcium 7.6 L (8.7-10.3) mg/dL Microbiology - Last 24 Hours (Table) 05/01/24 16:59 Urine Culture - Preliminary Urine,Voided Group D Enterococcus
[2024-05-03] MEDS: LACTATED RINGERS 1,000 ML IV SCH (18:02)
[2024-05-04 07:10] LABS: African American GFR (CKD) 58 (>60 ml/min/1.73 sqM); Anion Gap 5 mmol/L; Blood Urea Nitrogen 22 mg/dL (7-17); Calcium 7.4 mg/dL (8.4-10.2); Carbon Dioxide 22 mmol/L (22-30); Chloride 109 mmol/L (98-107); Glucose 93 mg/dL (74-99); Non-African American GFR(CKD) 50 (>60 ml/min/1.73 sqM); Potassium 3.4 mmol/L (3.5-5.1); Sodium 136 mmol/L (137-145)
[2024-05-04] MEDS ORDERED: Potassium Replacement Protocol 1 EACH MISC MISCELLANE PRN (07:39)
--- NOTE | 2024-05-04 07:59 | P.PN ---
Subjective Progress Note Date: 05/03/24 72-year-old female came with complaints of nausea vomiting abdominal pain has been going on for 2 weeks. Her last bowel movement was normal passing gas has not been eating well CT of the abdomen was done which showed gastric outlet obstruction patient is also severely dehydrated with serum creatinine of 1.76 baseline within normal limits patient has electrolyte abnormalities as well as from dehydration patient is presently receiving IV fluids, has an NG tube. General surgery will evaluate the patient. 05/03/2024 Patient is seen and evaluated in follow-up being followed with Dr. Jung general surgery and continues on gentle hydration. Patient is currently continued with n.p.o. only ice chips and continued NG tube. Patient reports passing gas and did have a bowel movement. Repeat endoscopy being planned for possibly Monday. Kidney functions improving and will monitor closely. Hemoglobin just above 8 and recommend monitoring closely as there was a slight drop. No active bleeding noted and initial EGD showed erosive gastritis, esophageal ulceration and chronic gastritis without any active bleeding. Review of systems: Constitutional: No reports of fatigue, fever, or chills Cardiovascular: No reports of chest pain or palpitations Respiratory: No reports of shortness of breath or cough GI: No reports of nausea, vomiting, or diarrhea, reports passing gas and did have a bowel movement : No reports of dysuria or retention Neurovascular: reports of generalized weakness All other systems are negative except those mentioned in the HPI PHYSICAL EXAMINATION: GENERAL: The patient is alert and oriented x3, not in any acute distress. Thin built female appears to be dehydrated clinically HEENT: Pupils are round and equally reacting to light. EOMI. No scleral icterus. No conjunctival pallor. Normocephalic, atraumatic. No pharyngeal erythema. No thyromegaly. CARDIOVASCULAR: S1 and S2 present. No murmurs, rubs, or gallops. PULMONARY: Chest is clear to auscultation, no wheezing or crackles. ABDOMEN: Soft, nontender, nondistended, normoactive bowel sounds. No palpable organomegaly. MUSCULOSKELETAL: No joint swelling or deformity. EXTREMITIES: No cyanosis, clubbing, or pedal edema. NEUROLOGICAL: Gross neurological examination did not reveal any focal deficits. SKIN: No rashes. Assessment: -Nausea vomiting secondary to gastric outlet obstruction status post EGD showing acute gastric obstruction, GERD, esophageal ulceration with chronic gastritis without any active bleeding. Per surgery continue with NG tube for decompression with possible repeat endoscopy on Monday -Severe dehydration, improving, continue gentle hydration -Acute renal failure prerenal azotemia secondary to severe dehydration, IV fluids will be continued -Hypokalemia secondary to nausea vomiting potassium will be replaced, monitor closely and replace per protocol -Leukocytosis reactive -Moderate protein calorie malnutrition with a BMI of 18.1 -Constipation, will use Dulcolax suppository, had a bowel movement -Asymptomatic bacteriuria, will not require any antibiotics -Hyperlipidemia continue with atorvastatin DVT prophylaxis: Lovenox GI prophylaxis Full code Plan: Patient is currently n.p.o. with ice chips only per general surgery and will continue along with NG tube for decompression Plans for possible repeat endoscopic intervention on Monday with Dr. Jung Patient is medically stable and will continue to monitor closely. Admitting service is being transition to general surgery and we will continue to follow on consult Follow-up with repeat labs and replace electrolytes per protocol Encouraged increase activity as tolerated and sitting up in the chair more often The impression and plan of care has been dictated by Rosenda Rao, Nurse Practitioner as directed. Dr. Juan M MD I have performed a history and examination and MDM of this patient, discussed the same with the dictator, and agree with the dictator's assessment and plan as written ,documented as a scribe. Based on total visit time, I have performed more than 50% of the visit. Objective - Vital Signs Vital signs: Vital Signs Temp 98 F 05/03/24 07:09 Pulse 85 05/03/24 07:09 Resp 16 05/03/24 07:09 BP 129/77 05/03/24 07:09 Pulse Ox 95 05/03/24 07:09 FiO2 Intake & Output 05/02/24 05/03/24 05/03/24 18:59 06:59 18:59 Intake Total 400 1000 Output Total 1 251 Balance 399 749 Weight 46.266 kg Intake: IV 400 Intake, IV Titration 1000 Amount Sodium Chloride 0.9% 1, 1000 000 ml @ 100 mls/hr IV . Q10H [facility] Rx#:[id number] Oral 0 Output: Gastric Drainage 250 Stool 1 1 Other: Voiding Method Toilet Toilet # Voids 6 1 # Bowel Movements 1 - Labs CBC & Chem 7: 05/02/24 08:28 05/04/24 05:33 Labs: Abnormal Lab Results - Last 24 Hours (Table) 05/03/24 Range/Units 05:35 Carbon Dioxide 21.2 L (21.6-31.8) mmol/L Anion Gap 14.80 H (4.00-12.00) mmol/L BUN 29.4 H (9.0-27.0) mg/dL Est GFR (CKD-EPI) 44 L (>=60) BUN/Creatinine Ratio 22.62 H (12.00-20.00) Ratio Calcium 7.6 L (8.7-10.3) mg/dL Microbiology - Last 24 Hours (Table) 05/01/24 16:59 Urine Culture - Preliminary Urine,Voided Group D Enterococcus
[2024-05-04] MEDS: POTASSIUM CHLORIDE 10 MEQ in WATER FOR INJECTION 1 100ML.BAG IVPB SCH (08:33)
--- NOTE | 2024-05-04 09:20 | P.GSCN ---
History of Present Illness Consult date: 05/04/24 Reason for Consult: Persistent right hydronephrosis Requesting physician: Nancy Cheung History of present illness: The patient is a 73-year-old white female admitted last month with nausea and vomiting. Renal ultrasound showed evidence of hydronephrosis. CT scan had shown right hydroureteronephrosis down to the pelvic inlet. An obstructing etiology was not identified. Her serum creatinine level was 1.09 in July 2022 but was 2.51 last month, up from 1.24 in February. She was treated for an E. coli UTI in February. She was readmitted last month and underwent cystoscopy with right ureteral stent insertion on April 11, 2024. 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 The ureter proximal to this was dilated and tortuous. She has felt much better since the stent was placed. She denies any prior history of urolithiasis. She states that she was treated for recurrent cystitis as a young adult, but it has been years since she had a UTI until last month. She is now admitted with a 2- week history of abdominal pain, nausea, and vomiting. This appears to be due to gastric outlet obstruction, and she underwent EGD with gastric decompression on May 02, 2024. CT scan shows persistent right hydronephrosis. The ureteral stent is well-positioned. I am consulted for this reason. Review of Systems - Genitourinary Genitourinary: Denies dysuria, Denies flank pain, Denies hematuria Past Medical History Past Medical History: Hypertension Additional Past Medical History / Comment(s): pt has hx of migraines History of Any Multi-Drug Resistant Organisms: None Reported Year Discovered:: 04/09/24 MDRO Source:: urine Past Surgical History: Hernia Repair, Tonsillectomy Additional Past Surgical History / Comment(s): Stent placed in ureter due to blockage on 04/21 Past Anesthesia/Blood Transfusion Reactions: Previous Problems w/ Anesthesia Additional Past Anesthesia/Blood Transfusion Reaction / Comm: Pt does not wake up well from anesthesia, last time was given twilight anesthesia because of this Past Psychological History: No Psychological Hx Reported Smoking Status: Never smoker Past Alcohol Use History: None Reported Past Drug Use History: None Reported Medications and Allergies Home Medications Medication Instructions Recorded Confirmed Type Labetalol [Trandate] 100 mg PO DAILY 12/29/19 05/01/24 History Acetaminophen Tab [Tylenol] 500 - 1,000 mg PO Q6HR PRN 03/10/24 05/01/24 History Balance Of Nature Fruits 3 cap PO HS 03/10/24 05/01/24 History Balance Of Nature Veggies 3 cap PO HS 03/10/24 05/01/24 History Labetalol [Trandate] 50 mg PO HS 03/10/24 05/01/24 History Multivitamins, Thera [Multivitamin 1 tab PO BID 03/10/24 05/01/24 History (formulary)] Rosuvastatin [Crestor] 20 mg PO HS 03/10/24 05/01/24 History Lisinopril-Hctz 20-12.5 mg 1 tab PO HS 05/01/24 05/01/24 History [Zestoretic 20-12.5] Sennosides-Docusate Sodium 1 tab PO BID PRN 05/01/24 05/01/24 History [Senokot-S] ondansetron HCL [Zofran] 8 mg PO Q12HR PRN 05/01/24 05/01/24 History Allergies Allergy/AdvReac Type Severity Reaction Status Date / Time cephalexin [From Keflex] AdvReac Nausea & Verified 05/01/24 18:19 Vomiting Surgical - Exam Vital Signs Temp Pulse Resp BP Pulse Ox 98.6 F 79 20 139/83 96 05/01/24 15:45 05/01/24 15:45 05/01/24 15:45 05/01/24 15:45 05/01/24 15:45 - General well developed, well nourished, no distress - Respiratory normal respiratory effort - Psychiatric oriented to time, oriented to person, oriented to place, speech is normal, memory intact Results - Labs 05/02/24 08:28 05/04/24 05:33 Abnormal Lab Results - Last 24 Hours (Table) 05/03/24 05/04/24 Range/Units 05:35 05:33 Sodium 136 L (137-145) mmol/L Potassium 3.4 L (3.5-5.1) mmol/L Chloride 109 H (98-107) mmol/L Carbon Dioxide 21.2 L (21.6-31.8) mmol/L Anion Gap 14.80 H (4.00-12.00) mmol/L BUN 29.4 H 22 H (9.0-27.0) mg/dL Creatinine 1.11 H (0.52-1.04) mg/dL Est GFR (CKD-EPI) 44 L (>=60) BUN/Creatinine Ratio 22.62 H (12.00-20.00) Ratio Calcium 7.6 L 7.4 L (8.7-10.3) mg/dL Microbiology - Last 24 Hours (Table) 05/01/24 16:59 Urine Culture - Preliminary Urine,Voided Group D Enterococcus Diabetes panel 05/03/24 05/04/24 Range/Units 05:35 05:33 Sodium 142 136 L (135-145) mmol/L Potassium 4.2 3.4 L (3.5-5.5) mmol/L Chloride 106 109 H (96-109) mmol/L Carbon Dioxide 21.2 L 22 (21.6-31.8) mmol/L BUN 29.4 H 22 H (9.0-27.0) mg/dL Creatinine 1.3 1.11 H (0.6-1.5) mg/dL Glucose 75 93 (70-110) mg/dL Calcium 7.6 L 7.4 L (8.7-10.3) mg/dL Calcium panel 05/03/24 05/04/24 Range/Units 05:35 05:33 Calcium 7.6 L 7.4 L (8.7-10.3) mg/dL Pituitary panel 05/03/24 05/04/24 Range/Units 05:35 05:33 Sodium 142 136 L (135-145) mmol/L Potassium 4.2 3.4 L (3.5-5.5) mmol/L Chloride 106 109 H (96-109) mmol/L Carbon Dioxide 21.2 L 22 (21.6-31.8) mmol/L BUN 29.4 H 22 H (9.0-27.0) mg/dL Creatinine 1.3 1.11 H (0.6-1.5) mg/dL Glucose 75 93 (70-110) mg/dL Calcium 7.6 L 7.4 L (8.7-10.3) mg/dL Adrenal panel 05/03/24 05/04/24 Range/Units 05:35 05:33 Sodium 142 136 L (135-145) mmol/L Potassium 4.2 3.4 L (3.5-5.5) mmol/L Chloride 106 109 H (96-109) mmol/L Carbon Dioxide 21.2 L 22 (21.6-31.8) mmol/L BUN 29.4 H 22 H (9.0-27.0) mg/dL Creatinine 1.3 1.11 H (0.6-1.5) mg/dL Glucose 75 93 (70-110) mg/dL Calcium 7.6 L 7.4 L (8.7-10.3) mg/dL - Imaging CT scan - abdomen: report reviewed, image reviewed Assessment and Plan Assessment: Urine culture shows 50-100,000 Group D Enterococcus. (1) Complicated UTI (urinary tract infection) Current Visit: No Status: Acute Code(s): N39.0 - URINARY TRACT INFECTION, SITE NOT SPECIFIED SNOMED Code(s): 03677194 Plan: I would suggest the patient be placed on ampicillin to treat her Enterococcus UTI. She is scheduled to undergo cystoscopy with right ureteroscopy in May 16, 2024. I intend to proceed with that as planned as long as she has suf ficiently recovered from a GI standpoint. No intervention is planned in the meantime. Time with Patient: Greater than 30
[2024-05-04 10:04] LABS: Basophils # (A) 0.03 X 10*3/uL (0.00-0.10); Basophils % (A) 0.3 %; Eosinophils # (A) 0.36 X 10*3/uL (0.04-0.35); Eosinophils % (A) 3.7 %; HCT 26.8 % (37.2-46.3); HGB 8.6 g/dL (12.0-15.0); Lymphocytes # (A) 0.75 X 10*3/uL (0.90-5.00); Lymphocytes % (A) 7.7 %; MCHC 32.1 g/dL (32.0-37.0); MCV 90.2 FL (80.0-97.0); Mean Platelet Volume 10.6 FL (9.5-12.2); Monocytes # (A) 0.94 X 10*3/uL (0.20-1.00); Monocytes % (A) 9.6 %; NRBC Per 100 WBC 0 X 10*3/uL (0.00-0.01); Neutrophils # (A) 7.63 X 10*3/uL (1.80-7.70); Neutrophils % (A) 78.1 %; Platelet Count 148 X 10*3/uL (140-440); RBC 2.97 X 10*6/uL (4.10-5.20); WBC 9.77 X 10*3/uL (4.50-10.00)
[2024-05-04] MEDS ORDERED: AMPICILLIN-SULBACTAM 3 GM in SODIUM CHLORIDE 0.9% 50 ML IVPB SCH (12:00)
[2024-05-04] MEDS ORDERED: AMPICILLIN-SULBACTAM 1.5 GM in SODIUM CHLORIDE 0.9% 50 ML IVPB SCH (12:00)
[2024-05-04] MEDS: AMPICILLIN-SULBACTAM 3 GM in SODIUM CHLORIDE 0.9% 100 ML IVPB SCH (12:57)
--- NOTE | 2024-05-04 13:52 | P.PN ---
Progress Note - Text Progress Note Date: 05/04/24 Surgery locums coverage comfortable but burping on clear liquids while NG is clamped, she feels some resistance to deep breaths from stomach Abdomen non tender but she is quite tympanitic Will resume NG suction for continued gastric outlet obstruction
--- NOTE | 2024-05-04 15:00 | P.PN ---
Subjective Progress Note Date: 05/04/24 72-year-old female came with complaints of nausea vomiting abdominal pain has been going on for 2 weeks. Her last bowel movement was normal passing gas has not been eating well CT of the abdomen was done which showed gastric outlet obstruction patient is also severely dehydrated with serum creatinine of 1.76 baseline within normal limits patient has electrolyte abnormalities as well as from dehydration patient is presently receiving IV fluids, has an NG tube. General surgery will evaluate the patient. 05/03/2024 Patient is seen and evaluated in follow-up being followed with Dr. Jung general surgery and continues on gentle hydration. Patient is currently continued with n.p.o. only ice chips and continued NG tube. Patient reports passing gas and did have a bowel movement. Repeat endoscopy being planned for possibly Monday. Kidney functions improving and will monitor closely. He moglobin just above 8 and recommend monitoring closely as there was a slight drop. No active bleeding noted and initial EGD showed erosive gastritis, esophageal ulceration and chronic gastritis without any active bleeding. 05/04/2024 Patient is evaluated today in follow up on the medical floor. Patient underwent EGD with decompression and NG tube placement 2 days ago. NG tube has been turned off to suction and patient started on clear liquid diet. Has active bowel sounds in all quadrants and less bloated today. Does report passing gas. Urology also saw the patient as she was recently admitted for urinary retention and found to have hydronephrosis and had right ureter stent placed. She has been having dysuria on an outpatient basis prior to admission. Her urine culture is finalized showing Enterococcus faecalis and she has been started on IV unasyn. ID was consulted. Review of systems: Constitutional: No reports of fatigue, fever, or chills Cardiovascular: No reports of chest pain or palpitations Respiratory: No reports of shortness of breath or cough GI: No reports of nausea, vomiting, or diarrhea, reports passing gas and did have a bowel movement : No reports of dysuria or retention Neurovascular: reports of generalized weakness All other systems are negative except those mentioned in the HPI PHYSICAL EXAMINATION: GENERAL: The patient is alert and oriented x3, not in any acute distress. Thin built female appears to be dehydrated clinically HEENT: Pupils are round and equally reacting to light. EOMI. No scleral icterus. No conjunctival pallor. Normocephalic, atraumatic. No pharyngeal erythema. No thyromegaly. CARDIOVASCULAR: S1 and S2 present. No murmurs, rubs, or gallops. PULMONARY: Chest is clear to auscultation, no wheezing or crackles. ABDOMEN: Soft, nontender, nondistended, normoactive bowel sounds. No palpable organomegaly. NG tube in place. MUSCULOSKELETAL: No joint swelling or deformity. EXTREMITIES: No cyanosis, clubbing, or pedal edema. NEUROLOGICAL: Gross neurological examination did not reveal any focal deficits. SKIN: No rashes. Assessment: -Nausea vomiting secondary to gastric outlet obstruction status post EGD showing acute gastric obstruction, GERD, esophageal ulceration with chronic gastritis without any active bleeding. Per surgery continue with NG tube for decompression with possible repeat endoscopy on Monday -Severe dehydration, improving, continue gentle hydration -Acute renal failure prerenal azotemia secondary to severe dehydration, IV fluids will be continued -Hypokalemia secondary to nausea vomiting potassium will be replaced, monitor closely and replace per protocol -Leukocytosis reactive -Moderate protein calorie malnutrition with a BMI of 18.1 -Constipation, will use Dulcolax suppository, had a bowel movement -Asymptomatic bacteriuria, will not require any antibiotics -Hyperlipidemia continue with atorvastatin DVT prophylaxis: Lovenox GI prophylaxis Full code Plan: Patient is currently n.p.o. with ice chips only per general surgery and will continue along with NG tube for decompression. NG tube was turned off to suction however general surgery recommending to start the patient on suction today. Plans for possible repeat endoscopic intervention on Monday with Dr. Jung Replace potassium IV protocol Patient is medically stable and will continue to monitor closely. Admitting service is being transition to general surgery and we will continue to follow on consult Follow-up with repeat labs and replace electrolytes per protocol Encouraged increase activity as tolerated and sitting up in the chair more often The impression and plan of care has been dictated by Rosenda Rao, Nurse Practitioner as directed. Dr. Juan M MD I have performed a history and examination and MDM of this patient, discussed the same with the dictator, and agree with the dictator's assessment and plan as written ,documented as a scribe. Based on total visit time, I have performed more than 50% of the visit. Objective - Vital Signs Vital signs: Vital Signs Temp 98.5 F 05/04/24 12:29 Pulse 82 05/04/24 12:29 Resp 16 05/04/24 12:29 BP 144/85 05/04/24 12:29 Pulse Ox 98 05/04/24 12:29 FiO2 Intake & Output 05/03/24 05/04/24 05/04/24 18:59 06:59 18:59 Intake Total 540 780 Output Total 660 Balance -120 780 Intake: Intake, IV Titration 240 Amount Lactated Ringers 1,000 ml 240 @ 20 mls/hr IV .Q24H [facility] Rx#:[id number] Oral 300 780 Output: Gastric Drainage 140 Urine 520 Other: Voiding Method Toilet Toilet # Voids 1 1 # Bowel Movements 1 - Labs CBC & Chem 7: 05/04/24 05:33 05/04/24 05:33 Labs: Abnormal Lab Results - Last 24 Hours (Table) 05/04/24 05/04/24 Range/Units 05:33 05:33 RBC 2.97 L (4.10-5.20) X 10*6/uL Hgb 8.6 L (12.0-15.0) g/dL Hct 26.8 L (37.2-46.3) % Immature Gran # 0.06 H (0.00-0.04) X 10*3/uL Lymphocytes # 0.75 L (0.90-5.00) X 10*3/uL Eosinophils # 0.36 H (0.04-0.35) X 10*3/uL Sodium 136 L (137-145) mmol/L Potassium 3.4 L (3.5-5.1) mmol/L Chloride 109 H (98-107) mmol/L BUN 22 H (7-17) mg/dL Creatinine 1.11 H (0.52-1.04) mg/dL Calcium 7.4 L (8.4-10.2) mg/dL Microbiology - Last 24 Hours (Table) 05/01/24 16:59 Urine Culture - Final Urine,Voided Enterococcus faecalis Assessment and Plan Time with Patient: Less than 30
--- NOTE | 2024-05-04 23:03 | P.CONS ---
History of Present Illness - Reason for Consult Consult date: 05/04/24 UTI Requesting physician: Haydee Chavez - Chief Complaint Abdominal pain x few days - History of Present Illness Patient is a 73-year-old female with a past medical history significant for hypertension presenting to the hospital 3 days ago for evaluation of nausea and vomiting in this patient symptom has been going on for about 2 weeks before presentation to hospital did not have bowel movement for the same duration that she has been passing gas patient on presentation to the hospital was afebrile and no fever have been ordered subsequently patient was not tachycardic hypotensive or hypoxic patient did have a white count of 11.1 on admission subsequent white count of 9.77 with a left shift BUN/creatinine has been mildly elevated liver enzymes are normal patient did have a positive UA culture have been finalized with Enterococcus faecalis today with his prompted this consultation patient did have abdominal pelvis CT we did shows dilated esophagus and stomach consider gastric outlet obstruction procedure moderate right-sided hydronephrosis despite new double-J ureteral stent patient has been evaluated by urology and currently did not recommend exchange of her catheter and the patient is being treated conservatively for her bowel obstruction by general surgery Review of Systems Positive point and negatives has been mentioned in the HPI, complete review of systems was performed and all other systems are negative Past Medical History Past Medical History: Hypertension Additional Past Medical History / Comment(s): pt has hx of migraines History of Any Multi-Drug Resistant Organisms: None Reported Year Discovered:: 04/09/24 MDRO Source:: urine Past Surgical History: Hernia Repair, Tonsillectomy Additional Past Surgical History / Comment(s): Stent placed in ureter due to blockage on 04/21 Past Anesthesia/Blood Transfusion Reactions: Previous Problems w/ Anesthesia Additional Past Anesthesia/Blood Transfusion Reaction / Comm: Pt does not wake up well from anesthesia, last time was given twilight anesthesia because of this Past Psychological History: No Psychological Hx Reported Smoking Status: Never smoker Past Alcohol Use History: None Reported Past Drug Use History: None Reported Medications and Allergies Home Medications Medication Instructions Recorded Confirmed Type Labetalol [Trandate] 100 mg PO DAILY 12/29/19 05/01/24 History Acetaminophen Tab [Tylenol] 500 - 1,000 mg PO Q6HR PRN 03/10/24 05/01/24 History Balance Of Nature Fruits 3 cap PO HS 03/10/24 05/01/24 History Balance Of Nature Veggies 3 cap PO HS 03/10/24 05/01/24 History Labetalol [Trandate] 50 mg PO HS 03/10/24 05/01/24 History Multivitamins, Thera [Multivitamin 1 tab PO BID 03/10/24 05/01/24 History (formulary)] Rosuvastatin [Crestor] 20 mg PO HS 03/10/24 05/01/24 History Lisinopril-Hctz 20-12.5 mg 1 tab PO HS 05/01/24 05/01/24 History [Zestoretic 20-12.5] Sennosides-Docusate Sodium 1 tab PO BID PRN 05/01/24 05/01/24 History [Senokot-S] ondansetron HCL [Zofran] 8 mg PO Q12HR PRN 05/01/24 05/01/24 History Allergies Allergy/AdvReac Type Severity Reaction Status Date / Time cephalexin [From Keflex] AdvReac Nausea & Verified 05/01/24 18:19 Vomiting Physical Exam Vitals: Vital Signs Temp Pulse Resp BP BP Pulse Ox 05/04/24 07:26 99.6 F 82 17 148/80 95 05/04/24 01:52 98 F 82 16 132/80 97 05/03/24 19:36 97.7 F 83 16 145/80 97 05/03/24 12:37 97.8 F 79 17 128/74 98 Intake and Output 05/03/24 05/04/24 05/04/24 22:59 06:59 14:59 Intake Total 540 780 Output Total 140 520 Balance -140 20 780 Intake: Intake, IV Titration 240 Amount Lactated Ringers 1,000 ml 240 @ 20 mls/hr IV .Q24H [facility] Rx#:[id number] Oral 300 780 Output: Gastric Drainage 140 Urine 520 Other: Voiding Method Toilet # Voids 1 1 # Bowel Movements 1 GENERAL DESCRIPTION: Elderly female lying in bed, no distress. No tachypnea or accessory muscle of respiration use. HEENT: Shows Pallor , no scleral icterus. Oral mucous membrane is dry. NECK: Trachea central, no thyromegaly. LUNGS: Unlabored breathing. Clear to auscultation anteriorly. No wheeze or crackle. HEART: S1, S2, regular rate and rhythm. No loud murmur ABDOMEN: Soft, no tenderness EXTREMITIES: No edema of feet. SKIN: No rash, no masses palpable. NEUROLOGICAL: The patient is awake, alert, oriented x3, mood and affect normal. Results CBC & Chem 7: 05/04/24 05:33 05/04/24 19:57 Labs: Abnormal Lab Results - Last 24 Hours (Table) 05/04/24 05/04/24 Range/Units 05:33 05:33 RBC 2.97 L (4.10-5.20) X 10*6/uL Hgb 8.6 L (12.0-15.0) g/dL Hct 26.8 L (37.2-46.3) % Immature Gran # 0.06 H (0.00-0.04) X 10*3/uL Lymphocytes # 0.75 L (0.90-5.00) X 10*3/uL Eosinophils # 0.36 H (0.04-0.35) X 10*3/uL Sodium 136 L (137-145) mmol/L Potassium 3.4 L (3.5-5.1) mmol/L Chloride 109 H (98-107) mmol/L BUN 22 H (7-17) mg/dL Creatinine 1.11 H (0.52-1.04) mg/dL Calcium 7.4 L (8.4-10.2) mg/dL Microbiology - Last 24 Hours (Table) 05/01/24 16:59 Urine Culture - Final Urine,Voided Enterococcus faecalis Assessment and Plan (1) Complicated UTI (urinary tract infection) Current Visit: No Status: Acute Code(s): N39.0 - URINARY TRACT INFECTION, SITE NOT SPECIFIED SNOMED Code(s): 51713236 Plan: 1patient presented to hospital with acute nausea and vomiting in this patient w ho did have history of right-sided hydronephrosis requiring ureteral stent placement still have persistent hydronephrosis now with urine culture positive for Enterococcus faecalis suggestive of complicated urinary tract infection 2patient did have documented allergy in the chart of cephalexin which is mostly nausea and vomiting and not a true allergy 3-we will increase the dose of Unasyn to 3 g every 6 hours We will follow on clinical condition and cultures to further adjust medication if needed Thank you for this consultation we will follow the patient along with you Dictation was produced using [employer] software. please excuse any grammatical, word or spelling errors. Time with Patient: Greater than 30
[2024-05-05] MEDS: AMPICILLIN-SULBACTAM 3 GM in SODIUM CHLORIDE 0.9% 100 ML IVPB SCH (00:23)
[2024-05-05] MEDS: ENOXAPARIN 40 MG/0.4 ML SYRINGE SQ SCH (08:28)
--- NOTE | 2024-05-05 09:18 | P.PN ---
Subjective Progress Note Date: 05/05/24 patient is resting comfortably in bed. Her nasogastric tube has had limited output. On exam vital signs are stable. Abdomen soft. Patient scheduled for EGD that Jose in the a.m. Objective - Vital Signs Vital signs: Vital Signs Temp 98.4 F 05/05/24 07:37 Pulse 89 05/05/24 07:37 Resp 16 05/05/24 07:37 BP 138/83 05/05/24 07:37 Pulse Ox 97 05/05/24 07:37 FiO2 Intake & Output 05/04/24 05/05/24 05/05/24 18:59 06:59 18:59 Intake Total 780 Output Total 300 Balance 780 -300 Intake: Oral 780 Output: Gastric Drainage 300 Other: Voiding Method Toilet Toilet # Voids 2 3 - Labs CBC & Chem 7: 05/04/24 05:33 05/04/24 19:57 Labs: Abnormal Lab Results - Last 24 Hours (Table) 05/04/24 Range/Units 05:33 RBC 2.97 L (4.10-5.20) X 10*6/uL Hgb 8.6 L (12.0-15.0) g/dL Hct 26.8 L (37.2-46.3) % Immature Gran # 0.06 H (0.00-0.04) X 10*3/uL Lymphocytes # 0.75 L (0.90-5.00) X 10*3/uL Eosinophils # 0.36 H (0.04-0.35) X 10*3/uL Microbiology - Last 24 Hours (Table) 05/01/24 16:59 Urine Culture - Final Urine,Voided Enterococcus faecalis
[2024-05-05 09:22] LABS: Basophils # (A) 0.03 X 10*3/uL (0.00-0.10); Basophils % (A) 0.3 %; Eosinophils # (A) 0.23 X 10*3/uL (0.04-0.35); Eosinophils % (A) 2.4 %; HCT 27.9 % (37.2-46.3); HGB 8.8 g/dL (12.0-15.0); Lymphocytes # (A) 0.88 X 10*3/uL (0.90-5.00); Lymphocytes % (A) 9.2 %; MCH 28.9 pg (27.0-32.0); MCHC 31.5 g/dL (32.0-37.0); MCV 91.5 FL (80.0-97.0); Mean Platelet Volume 10.5 FL (9.5-12.2); Monocytes % (A) 9.4 %; NRBC Per 100 WBC 0 X 10*3/uL (0.00-0.01); Neutrophils # (A) 7.48 X 10*3/uL (1.80-7.70); Neutrophils % (A) 78.3 %; Platelet Count 162 X 10*3/uL (140-440); RBC 3.05 X 10*6/uL (4.10-5.20); RDW 14.1 % (11.5-14.5); WBC 9.56 X 10*3/uL (4.50-10.00)
[2024-05-05 10:50] LABS: BUN/Creat Ratio 13.73 Ratio (12.00-20.00); Blood Urea Nitrogen 15.1 mg/dL (9.0-27.0); Calcium 7.3 mg/dL (8.7-10.3); Carbon Dioxide 19.5 mmol/L (21.6-31.8); Chloride 109 mmol/L (96-109); Glucose 87 mg/dL (70-110); Magnesium 1.5 mg/dL (1.5-2.4); Sodium 140 mmol/L (135-145)
--- NOTE | 2024-05-05 11:10 | P.PN ---
Subjective Progress Note Date: 05/05/24 Principal diagnosis: Right hydronephrosis The NG tube remains in place for gastric outlet obstruction. The patient denies flank pain. Objective - Vital Signs Vital signs: Vital Signs Temp 98.4 F 05/05/24 07:37 Pulse 89 05/05/24 07:37 Resp 16 05/05/24 07:37 BP 138/83 05/05/24 07:37 Pulse Ox 97 05/05/24 07:37 FiO2 Intake & Output 05/04/24 05/05/24 05/05/24 18:59 06:59 18:59 Intake Total 780 Output Total 300 Balance 780 -300 Intake: Oral 780 Output: Gastric Drainage 300 Other: Voiding Method Toilet Toilet Toilet # Voids 2 3 - Constitutional General appearance: Present: average body habitus, cooperative, no acute distress - Psychiatric Psychiatric: Present: A&O x's 3 - Labs CBC & Chem 7: 05/05/24 02:47 05/05/24 02:47 Labs: Abnormal Lab Results - Last 24 Hours (Table) 05/05/24 05/05/24 Range/Units 02:47 02:47 RBC 3.05 L (4.10-5.20) X 10*6/uL Hgb 8.8 L (12.0-15.0) g/dL Hct 27.9 L (37.2-46.3) % MCHC 31.5 L (32.0-37.0) g/dL Lymphocytes # 0.88 L (0.90-5.00) X 10*3/uL Carbon Dioxide 19.5 L (21.6-31.8) mmol/L Est GFR (CKD-EPI) 54 L (>=60) Calcium 7.3 L (8.7-10.3) mg/dL Microbiology - Last 24 Hours (Table) 05/01/24 16:59 Urine Culture - Final Urine,Voided Enterococcus faecalis Assessment and Plan Assessment: Urine culture shows 50-100,000 Group D Enterococcus. (1) Complicated UTI (urinary tract infection) Current Visit: No Status: Acute Code(s): N39.0 - URINARY TRACT INFECTION, SITE NOT SPECIFIED SNOMED Code(s): 13355832 Plan: - Continue Unasyn - Will proceed with cystoscopy and right ureteroscopy on May 16, 2024 as previously scheduled, as long as the patient has sufficiently recovered. If not, I have advised her that the procedure can be delayed until she feels ready to proceed.
[2024-05-05] MEDS ORDERED: Magnesium Replacement Protocol 1 EACH MISC MISCELLANE PRN (13:45)
--- NOTE | 2024-05-05 13:46 | P.PN ---
Subjective Progress Note Date: 05/05/24 72-year-old female came with complaints of nausea vomiting abdominal pain has been going on for 2 weeks. Her last bowel movement was normal passing gas has not been eating well CT of the abdomen was done which showed gastric outlet obstruction patient is also severely dehydrated with serum creatinine of 1.76 baseline within normal limits patient has electrolyte abnormalities as well as from dehydration patient is presently receiving IV fluids, has an NG tube. General surgery will evaluate the patient. 05/03/2024 Patient is seen and evaluated in follow-up being followed with Dr. Jung general surgery and continues on gentle hydration. Patient is currently continued with n.p.o. only ice chips and continued NG tube. Patient reports passing gas and did have a bowel movement. Repeat endoscopy being planned for possibly Monday. Kidney functions improving and will monitor closely. He moglobin just above 8 and recommend monitoring closely as there was a slight drop. No active bleeding noted and initial EGD showed erosive gastritis, esophageal ulceration and chronic gastritis without any active bleeding. 05/04/2024 Patient is evaluated today in follow up on the medical floor. Patient underwent EGD with decompression and NG tube placement 2 days ago. NG tube has been turned off to suction and patient started on clear liquid diet. Has active bowel sounds in all quadrants and less bloated today. Does report passing gas. Urology also saw the patient as she was recently admitted for urinary retention and found to have hydronephrosis and had right ureter stent placed. She has been having dysuria on an outpatient basis prior to admission. Her urine culture is finalized showing Enterococcus faecalis and she has been started on IV unasyn. ID was consulted. 05/05/2024 Patient noted today in follow-up on the medical floor. NG tube remains in place to low intermittent suction overnight. With 300 mL of gastric drainage overnight. She does feel less bloated today. Patient is scheduled to undergo EGD tomorrow. She is also on IV Unasyn for an acute UTI. She will follow-up with urology in the office no further workup inpatient for the right sided hydronephrosis. Blood cell count of 9.56, hemoglobin stable 8.8, sodium 140, BUN of 15 creatinine of 1.1. Magnesium 1.5. Review of systems: Constitutional: No reports of fatigue, fever, or chills Cardiovascular: No reports of chest pain or palpitations Respiratory: No reports of shortness of breath or cough GI: No reports of nausea, vomiting, or diarrhea, reports passing gas and did have a bowel movement : No reports of dysuria or retention Neurovascular: reports of generalized weakness All other systems are negative except those mentioned in the HPI PHYSICAL EXAMINATION: GENERAL: The patient is alert and oriented x3, not in any acute distress. Thin built female appears to be dehydrated clinically HEENT: Pupils are round and equally reacting to light. EOMI. No scleral icterus. No conjunctival pallor. Normocephalic, atraumatic. No pharyngeal erythema. No thyromegaly. CARDIOVASCULAR: S1 and S2 present. No murmurs, rubs, or gallops. PULMONARY: Chest is clear to auscultation, no wheezing or crackles. ABDOMEN: Soft, nontender, nondistended, normoactive bowel sounds. No palpable organomegaly. NG tube in place. MUSCULOSKELETAL: No joint swelling or deformity. EXTREMITIES: No cyanosis, clubbing, or pedal edema. NEUROLOGICAL: Gross neurological examination did not reveal any focal deficits. SKIN: No rashes. Assessment: -Nausea vomiting secondary to gastric outlet obstruction status post EGD showing acute gastric obstruction, GERD, esophageal ulceration with chronic gastritis without any active bleeding. Per surgery continue with NG tube for decompression with possible repeat endoscopy on Monday -Severe dehydration, improving, continue gentle hydration -Acute renal failure prerenal azotemia secondary to severe dehydration, IV fluids will be continued -Hypokalemia secondary to nausea vomiting potassium will be replaced, monitor closely and replace per protocol -Leukocytosis reactive -Moderate protein calorie malnutrition with a BMI of 18.1 -Constipation, will use Dulcolax suppository, had a bowel movement -Asymptomatic bacteriuria, will not require any antibiotics -Hyperlipidemia continue with atorvastatin DVT prophylaxis: Lovenox GI prophylaxis Full code Plan: ID following patient remains on IV Unasyn for the Enterococcus UTI. Patient is currently n.p.o. with ice chips only per general surgery and will continue along with NG tube for decompression. NGT remains to suction Plans for possible repeat endoscopic intervention on Monday with Dr. Jung Replace potassium IV protocol Patient is medically stable and will continue to monitor closely. Admitting service is being transition to general surgery and we will continue to follow on consult Follow-up with repeat labs and replace electrolytes per protocol Encouraged increase activity as tolerated and sitting up in the chair more often The impression and plan of care has been dictated by Haydee Chavez Nurse Practitioner as directed. Dr. Juan M MD I have performed a history and examination and MDM of this patient, discussed the same with the dictator, and agree with the dictator's assessment and plan as written ,documented as a scribe. Based on total visit time, I have performed more than 50% of the visit. Objective - Vital Signs Vital signs: Vital Signs Temp 98.4 F 05/05/24 07:37 Pulse 89 05/05/24 07:37 Resp 16 05/05/24 07:37 BP 138/83 05/05/24 07:37 Pulse Ox 97 05/05/24 07:37 FiO2 Intake & Output 05/04/24 05/05/24 05/05/24 18:59 06:59 18:59 Intake Total 780 Output Total 300 Balance 780 -300 Intake: Oral 780 Output: Gastric Drainage 300 Other: Voiding Method Toilet Toilet Toilet # Voids 2 3 - Labs CBC & Chem 7: 05/05/24 02:47 05/05/24 02:47 Labs: Abnormal Lab Results - Last 24 Hours (Table) 05/05/24 05/05/24 Range/Units 02:47 02:47 RBC 3.05 L (4.10-5.20) X 10*6/uL Hgb 8.8 L (12.0-15.0) g/dL Hct 27.9 L (37.2-46.3) % MCHC 31.5 L (32.0-37.0) g/dL Lymphocytes # 0.88 L (0.90-5.00) X 10*3/uL Carbon Dioxide 19.5 L (21.6-31.8) mmol/L Est GFR (CKD-EPI) 54 L (>=60) Calcium 7.3 L (8.7-10.3) mg/dL Microbiology - Last 24 Hours (Table) 05/01/24 16:59 Urine Culture - Final Urine,Voided Enterococcus faecalis Assessment and Plan Time with Patient: Less than 30
[2024-05-05] MEDS: MAGNESIUM SULFATE-D5W PMX 1 GM in DEXTROSE/WATER 1 100ML.BAG IVPB SCH (15:41)
--- NOTE | 2024-05-06 09:01 | P.PN ---
Subjective Progress Note Date: 05/05/24 Principal diagnosis: Reason for follow up visit Enterococcus faecalis UTI Patient is a 73-year-old female with a past medical history significant for hypertension presenting to the hospital for evaluation of nausea and vomiting, CT abdominal pelvis with evidence of dilated esophagus stomach concerning for obstruction is being monitored by general surgery did have a positive UA with urine culture growing Enterococcus prompting this consultation. On today's evaluation that is 05/05/2024, Patient is afebrile patient is currently on room air and denies having any shortness of breath, the patient denies any chest pain or cough, the patient denies any nausea vomiting abdominal pain has decreased and mention feeling slightly better. The patient white count is 9.56, creatinine is 1.1 Objective - Vital Signs Vital signs: Vital Signs Temp 98.4 F 05/05/24 07:37 Pulse 89 05/05/24 07:37 Resp 16 05/05/24 07:37 BP 138/83 05/05/24 07:37 Pulse Ox 97 05/05/24 07:37 FiO2 Intake & Output 05/04/24 05/05/24 05/05/24 18:59 06:59 18:59 Intake Total 780 Output Total 300 Balance 780 -300 Intake: Oral 780 Output: Gastric Drainage 300 Other: Voiding Method Toilet Toilet Toilet # Voids 2 3 - Exam GENERAL DESCRIPTION: An elderly female lying in bed in no distress RESPIRATORY SYSTEM: Unlabored breathing , decreased breath sounds at bases HEART: S1 S2 regular rate and rhythm , ABDOMEN: Soft , no tenderness EXTREMITIES: No edema feet - Labs CBC & Chem 7: 05/05/24 02:47 05/05/24 02:47 Labs: Abnormal Lab Results - Last 24 Hours (Table) 05/04/24 05/05/24 Range/Units 05:33 02:47 RBC 2.97 L 3.05 L (4.10-5.20) X 10*6/uL Hgb 8.6 L 8.8 L (12.0-15.0) g/dL Hct 26.8 L 27.9 L (37.2-46.3) % MCHC 31.5 L (32.0-37.0) g/dL Immature Gran # 0.06 H (0.00-0.04) X 10*3/uL Lymphocytes # 0.75 L 0.88 L (0.90-5.00) X 10*3/uL Eosinophils # 0.36 H (0.04-0.35) X 10*3/uL Microbiology - Last 24 Hours (Table) 05/01/24 16:59 Urine Culture - Final Urine,Voided Enterococcus faecalis Assessment and Plan (1) Complicated UTI (urinary tract infection) Current Visit: No Status: Acute Code(s): N39.0 - URINARY TRACT INFECTION, SITE NOT SPECIFIED SNOMED Code(s): 76016403 Plan: 1patient presented to hospital with acute nausea and vomiting in this patient who did have history of right-sided hydronephrosis requiring ureteral stent placement still have persistent hydronephrosis now with urine culture positive for Enterococcus faecalis suggestive of complicated urinary tract infection 2patient did have documented allergy in the chart of cephalexin which is mostly nausea and vomiting and not a true allergy 3-patient mentions some improvement has symptom patient will be treated Unasyn to 3 g every 6 hours and monitor clinical course closely Dictation was produced using [employer] dictation software. please excuse any grammatical, word or spelling errors. Time with Patient: Less than 30
[2024-05-06] MEDS: IV FLUID CONTINUATION 900 ML IV ONE (09:09)
[2024-05-06] MEDS ORDERED: PROPOFOL 10 MG/ML 20 ML VIAL IV ONE (09:14)
--- NOTE | 2024-05-06 09:53 | P.PCN ---
Date of Procedure: 05/06/24 Description of Procedure: PREOPERATIVE DIAGNOSIS: Gastric outlet obstruction Intractable nausea and vomiting POSTOPERATIVE DIAGNOSIS: Gastric outlet obstruction Duodenal stricture Acute gastric ulcer Gastric polyp OPERATION: Esophagogastroduodenoscopy with duodenal balloon dilation, 18 Fij[place] Esophagogastroduodenoscopy with cold forceps biopsies along the esophagus, antrum and duodenum. SURGEON: Nancy Cheung MD ANESTHESIA: MAC. INDICATIONS: The patient is a 73-year-old female who presents with intractable nausea vomiting due to gastric outlet obstruction. Bowel rest were performed due to moderate retained food. Upper endoscopy was offered for further diagnostic evaluation and treatment. DESCRIPTION: The patient was brought into the endoscopy suite and laid in the left lateral decubitus position. An Olympus gastroscope was carefully passed along the posterior oropharynx. Prior severe erosive esophagitis had resolved with antacid therapy. The stomach was entered with localized gastritis and gastric ulcer along the gastric cardia and biopsies obtained with cold forceps. The duodenum was hypertensive along the pylorus. Carefully the scope was passed to the third portion of the duodenum without acute ulcers. Biopsies were obtained of the duodenum. Retroflexion of the scope confirmed Hill grade 2 lower esophageal valve without recurrent diaphragmatic hiatal hernia. A pyloric 15-18 Fijian balloon was passed to the second portion of the duodenum including duodenal wall. The balloon was insufflated to 15 then 18 Fijian without sequela. The pylorus remained patent upon removal of the scope. Cold forceps biopsies were obtained along gastric ulcer was obtained. Sepa rately cold biopsies were obtained along the duodenal bulb including esophagus. The diaphragmatic hiatus was found at 35 cm. The squamocolumnar junction was found at 35 cm from the incisors. No full-thickness injury was found along the mucosa. The stomach was desufflated. The patient tolerated the procedure well. Nasogastric tube was repositioned at 55 cm at the nares. FINDINGS: Squamocolumnar junction 35 cm from the incisors. Diaphragmatic hiatus at 35 cm. Acute superficial gastritis and gastric ulcer along the antrum without bleeding, biopsies obtained. Hill grade 2 lower esophageal valve. LA grade A erosive esophagitis. Moderate improvement of LA grade C erosive esophagitis in 4 days. No acute duodenal ulcers identified with biopsies obtained RECOMMENDATIONS: Continue nasogastric tube. Trial of liquid diet, warm beverages
--- NOTE | 2024-05-06 13:57 | P.PN ---
Subjective Progress Note Date: 05/06/24 SURGICAL PROGRESS NOTE CHIEF COMPLAINT: Possible gastric outlet obstruction HISTORY OF PRESENT ILLNESS: Patient is status post EGD with duodenal balloon dilation for duodenal stricture. Patient has NG tube in place. She reports since procedure she has had flatus. Patient received PICC line for TPN for nutrition support. PHYSICAL EXAM: VITAL SIGNS: Reviewed. GENERAL: Well-developed in no acute distress. ABDOMEN: Soft. Nondistended. Nontender. NEUROLOGIC: Alert and oriented. Cranial nerves II through XII grossly intact. ASSESSMENT: Gastric outlet obstruction Duodenal stricture Acute gastric ulcer Gastric polyp PLAN: -Start trial of clear liquids diet with warm beverages -Keep NG tube clamped -Possible removal of NG tube tomorrow if patient tolerating diet -Patient to start TPN for nutrition support Physician Care Attendant note has been reviewed by physician. Signing provider agrees with the documented findings, assessment, and plan of care. Objective - Vital Signs Vital signs: Vital Signs Temp 98.3 F 05/06/24 12:03 Pulse 77 05/06/24 12:03 Resp 18 05/06/24 12:03 BP 157/80 05/06/24 12:03 Pulse Ox 98 05/06/24 12:03 FiO2 Intake & Output 05/05/24 05/06/24 05/06/24 18:59 06:59 18:59 Intake Total 360 200 Output Total 400 650 Balance -40 -650 200 Weight 46.266 kg Intake: IV 200 Oral 360 Output: Gastric Drainage 400 650 Other: Voiding Method Toilet Toilet Toilet # Voids 2 0 # Bowel Movements 0 - Labs CBC & Chem 7: 05/05/24 02:47 05/05/24 02:47
[2024-05-06 15:03] LABS: ALT 11 U/L (4-34); AST 23 U/L (14-36); African American GFR (CKD) 63 (>60 ml/min/1.73 sqM); Albumin 2.7 g/dL (3.5-5.0); Albumin/Globulin Ratio 1.1; Alkaline Phosphatase 78 U/L (38-126); Anion Gap 13 mmol/L; Blood Urea Nitrogen 14 mg/dL (7-17); Calcium 7.8 mg/dL (8.4-10.2); Carbon Dioxide 14 mmol/L (22-30); Chloride 111 mmol/L (98-107); Globulin 2.5 g/dL; Glucose 62 mg/dL (74-99); Non-African American GFR(CKD) 54 (>60 ml/min/1.73 sqM); Phosphorus 2.9 mg/dL (2.5-4.5); Potassium 3.9 mmol/L (3.5-5.1); Sodium 138 mmol/L (137-145); Total Bilirubin 0.7 mg/dL (0.2-1.3); Total Protein 5.2 g/dL (6.3-8.2)
[2024-05-06] MEDS: MVI, ADULT NO.4 WITH VIT K 10 ML, TRACE (CONC-1ML/DOSE) 1 ML, SODIUM ACETATE 30 MEQ, PO... IV SCH (16:55)
[2024-05-06 21:09] LABS: Glucose,Whole Blood 120 mg/dL (70-110)
[2024-05-07 01:43] LABS: Glucose,Whole Blood 124 mg/dL (70-110)
[2024-05-07 05:26] LABS: Ionized Calcium 4.5 mg/dL (4.5-5.3)
[2024-05-07 05:38] LABS: African American GFR (CKD) 64 (>60 ml/min/1.73 sqM); Anion Gap 5 mmol/L; Blood Urea Nitrogen 14 mg/dL (7-17); Calcium 7.5 mg/dL (8.4-10.2); Carbon Dioxide 18 mmol/L (22-30); Chloride 112 mmol/L (98-107); Glucose 141 mg/dL (74-99); Magnesium 1.9 mg/dL (1.6-2.3); Non-African American GFR(CKD) 56 (>60 ml/min/1.73 sqM); Phosphorus 2.4 mg/dL (2.5-4.5); Potassium 3.5 mmol/L (3.5-5.1); Sodium 135 mmol/L (137-145)
--- NOTE | 2024-05-07 06:11 | P.PN ---
Subjective Progress Note Date: 05/06/24 72-year-old female came with complaints of nausea vomiting abdominal pain has been going on for 2 weeks. Her last bowel movement was normal passing gas has not been eating well CT of the abdomen was done which showed gastric outlet obstruction patient is also severely dehydrated with serum creatinine of 1.76 baseline within normal limits patient has electrolyte abnormalities as well as from dehydration patient is presently receiving IV fluids, has an NG tube. General surgery will evaluate the patient. 05/03/2024 Patient is seen and evaluated in follow-up being followed with Dr. Jung general surgery and continues on gentle hydration. Patient is currently continued with n.p.o. only ice chips and continued NG tube. Patient reports passing gas and did have a bowel movement. Repeat endoscopy being planned for possibly Monday. Kidney functions improving and will monitor closely. Hemoglobin just above 8 and recommend monitoring closely as there was a slight drop. No active bleeding noted and initial EGD showed erosive gastritis, esophageal ulceration and chronic gastritis without any active bleeding. 05/04/2024 Patient is evaluated today in follow up on the medical floor. Patient underwent EGD with decompression and NG tube placement 2 days ago. NG tube has been turned off to suction and patient started on clear liquid diet. Has active bowel sounds in all quadrants and less bloated today. Does report passing gas. Urology also saw the patient as she was recently admitted for urinary retention and found to have hydronephrosis and had right ureter stent placed. She has been having dysuria on an outpatient basis prior to admission. Her urine culture is finalized showing Enterococcus faecalis and she has been started on IV unasyn. ID was consulted. 05/05/2024 Patient noted today in follow-up on the medical floor. NG tube remains in place to low intermittent suction overnight. With 300 mL of gastric drainage overnight. She does feel less bloated today. Patient is scheduled to undergo EGD tomorrow. She is also on IV Unasyn for an acute UTI. She will follow-up with urology in the office no further workup inpatient for the right sided hydronephrosis. Blood cell count of 9.56, hemoglobin stable 8.8, sodium 140, BUN of 15 creatinine of 1.1. Magnesium 1.5. 05/06/2024 Patient is seen in follow-up today just underwent EGD with dilatation with Dr. Fabiana and continues with NG tube. Biopsies were obtained on an acute gastric ulcer and also a gastric polyp. 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 Patient is being started on clear liquids and continuing with NG tube with possible removal in the next 24 hours only per surgery recommendations. Patient is being initiated on TPN per surgery as well. Patient is afebrile with no reported chest pain or shortness of breath. Patient continues on antibiotics as well for urinary tract infection with Enterococcus. Review of systems: Constitutional: No reports of fatigue, fever, or chills Cardiovascular: No reports of chest pain or palpitations Respiratory: No reports of shortness of breath or cough GI: No reports of nausea, vomiting, or diarrhea, reports passing gas : No reports of dysuria or retention Neurovascular: reports of generalized weakness All other systems are negative except those mentioned in the HPI PHYSICAL EXAMINATION: GENERAL: The patient is alert and oriented x3, not in any acute distress. Thin built female, elderly appearing HEENT: Pupils are round and equally reacting to light. EOMI. No scleral icterus. No conjunctival pallor. Normocephalic, atraumatic. No pharyngeal erythema. No thyromegaly. NG tube noted CARDIOVASCULAR: S1 and S2 present. No murmurs, rubs, or gallops. PULMONARY: Chest is clear to auscultation, no wheezing or crackles. ABDOMEN: Soft, nontender, nondistended, normoactive bowel sounds. No palpable organomegaly. NG tube in place. MUSCULOSKELETAL: No joint swelling or deformity. EXTREMITIES: No cyanosis, clubbing, or pedal edema. NEUROLOGICAL: Gross neurological examination did not reveal any focal deficits. SKIN: No rashes. Assessment: -Nausea vomiting secondary to gastric outlet obstruction status post EGD showing acute gastric obstruction, GERD, esophageal ulceration with chronic gastritis without any active bleeding. Per surgery continue with NG tube for decompression and underwent repeat EGD with dilatation and also noted to have gastric ulcer and a biopsy was obtained -Severe dehydration, improving, continue gentle hydration, patient being started on TPN per surgery -Acute renal failure prerenal azotemia secondary to severe dehydration, IV fluids will be continued -Hypokalemia secondary to nausea vomiting potassium will be replaced, monitor closely and replace per protocol -Leukocytosis reactive -Moderate protein calorie malnutrition with a BMI of 18.1 -Constipation, will use Dulcolax suppository, had a bowel movement -Acute urinary tract infection, present on admission with Enterobacter growing in the culture -Hyperlipidemia continue with atorvastatin DVT prophylaxis: Lovenox GI prophylaxis Full code Plan: ID following patient remains on IV Unasyn for the Enterococcus UTI. Patient is currently n.p.o. and being started on clear liquids per surgery. Continue with NG tube for decompression and possibly removing tomorrow. Patient is passing gas and is status post EGD with dilatation and biopsies obtained on a gastric ulcer Patient is receiving a PICC line and is being started on TPN per surgery We will continue to follow with general surgery and monitor closely. Admitting service has been transitioned to general surgery Follow-up with repeat labs and replace electrolytes per protocol Encouraged increase activity as tolerated and sitting up in the chair more often The impression and plan of care has been dictated by Rosenda Rao, Nurse Practitioner as directed. Dr. Juan M MD I have performed a history and examination and MDM of this patient, discussed the same with the dictator, and agree with the dictator's assessment and plan as written ,documented as a scribe. Based on total visit time, I have performed more than 50% of the visit. Objective - Vital Signs Vital signs: Vital Signs Temp 98 F 05/06/24 06:57 Pulse 84 05/06/24 06:57 Resp 18 05/06/24 06:57 BP 135/79 05/06/24 06:57 Pulse Ox 97 05/06/24 06:57 FiO2 Intake & Output 05/05/24 05/06/24 05/06/24 18:59 06:59 18:59 Intake Total 360 Output Total 400 650 Balance -40 -650 Intake: Oral 360 Output: Gastric Drainage 400 650 Other: Voiding Method Toilet Toilet # Voids 2 0 # Bowel Movements 0 - Labs CBC & Chem 7: 05/05/24 02:47 05/07/24 04:43 Labs: Abnormal Lab Results - Last 24 Hours (Table) 05/05/24 Range/Units 02:47 Carbon Dioxide 19.5 L (21.6-31.8) mmol/L Est GFR (CKD-EPI) 54 L (>=60) Calcium 7.3 L (8.7-10.3) mg/dL
[2024-05-07 07:40] LABS: Glucose,Whole Blood 154 mg/dL (70-110)
--- NOTE | 2024-05-07 07:46 | P.PN ---
Subjective Progress Note Date: 05/06/24 Principal diagnosis: Reason for follow up visit Enterococcus faecalis UTI Patient is a 73-year-old female with a past medical history significant for hypertension presenting to the hospital for evaluation of nausea and vomiting, CT abdominal pelvis with evidence of dilated esophagus stomach concerning for obstruction is being monitored by general surgery did have a positive UA with urine culture growing Enterococcus prompting this consultation. On today's evaluation that is 05/06/2024, patient has been afebrile, patient is breathing comfortably and is currently on room air, patient denies having any significant cough no chest pain, patient did have some nausea but improvement in symptoms after EGD no vomiting still have the NG. Patient did have a creatinine 1.04 no CBC was done today Objective - Vital Signs Vital signs: Vital Signs Temp 98.3 F 05/06/24 12:03 Pulse 77 05/06/24 12:03 Resp 18 05/06/24 12:03 BP 157/80 05/06/24 12:03 Pulse Ox 98 05/06/24 12:03 FiO2 Intake & Output 05/05/24 05/06/24 05/06/24 18:59 06:59 18:59 Intake Total 360 200 Output Total 400 650 Balance -40 -650 200 Intake: IV 200 Oral 360 Output: Gastric Drainage 400 650 Other: Voiding Method Toilet Toilet Toilet # Voids 2 0 # Bowel Movements 0 - Exam GENERAL DESCRIPTION: An elderly female lying in bed in no distress RESPIRATORY SYSTEM: Unlabored breathing , decreased breath sounds at bases HEART: S1 S2 regular rate and rhythm , ABDOMEN: Soft , no tenderness EXTREMITIES: No edema feet - Labs CBC & Chem 7: 05/05/24 02:47 05/07/24 04:43 Assessment and Plan (1) Complicated UTI (urinary tract infection) Current Visit: No Status: Acute Code(s): N39.0 - URINARY TRACT INFECTION, SITE NOT SPECIFIED SNOMED Code(s): 96105846 Plan: 1patient presented to hospital with acute nausea and vomiting in this patient who did have history of right-sided hydronephrosis requiring ureteral stent placement still have persistent hydronephrosis now with urine culture positive for Enterococcus faecalis suggestive of complicated urinary tract infection 2patient did have documented allergy in the chart of cephalexin which is mostly nausea and vomiting and not a true allergy 3-patient is afebrile white count is normal, patient will be treated Unasyn to 3 g every 6 hours while waiting for resumption of full activity at that point antibiotic will be switched to p.o. Dictation was produced using [employer] software. please excuse any grammatical, word or spelling errors. Time with Patient: Less than 30
[2024-05-07] MEDS: FAT EMULSION 20% 250 ML in EMPTY BAG 1 BAG IV SCH (09:37)
[2024-05-07] MEDS: POTASSIUM PHOSPHATE 15 MMOL in DEXTROSE 5% IN WATER 250 ML IV ONE (10:35)
--- NOTE | 2024-05-07 12:49 | P.PN ---
Subjective Progress Note Date: 05/07/24 SURGICAL PROGRESS NOTE CHIEF COMPLAINT: Possible gastric outlet obstruction HISTORY OF PRESENT ILLNESS: Patient is status post EGD with duodenal balloon dilation for duodenal stricture. Patient is NG tube has been clamped. She has been tolerating the clear liquids. She did have flatus and a bowel movement. Patient reports she is feeling stronger. She has been up to ambulate. No abdominal pain. Denies any nausea or vomiting. Afebrile. Sodium 135 potassium is 3.5 creatinine 1.02 PHYSICAL EXAM: VITAL SIGNS: Reviewed. GENERAL: Well-developed in no acute distress. ABDOMEN: Soft. Nondistended. Nontender. NEUROLOGIC: Alert and oriented. Cranial nerves II through XII grossly intact. ASSESSMENT: Gastric outlet obstruction Duodenal stricture Acute gastric ulcer Gastric polyp PLAN: -Discontinue NG tube -Advance diet to full liquid -Patient to start TPN for nutrition support -Courage patient to ambulate -Possible advancement to low fiber diet for dinner if patient tolerates full liquids at lunch Physician Physical Anthropologist note has been reviewed by physician. Signing provider agrees with the documented findings, assessment, and plan of care. Objective - Vital Signs Vital signs: Vital Signs Temp 97.7 F 05/07/24 07:09 Pulse 93 05/07/24 07:09 Resp 17 05/07/24 07:09 BP 156/86 05/07/24 07:09 Pulse Ox 97 05/07/24 07:09 FiO2 Intake & Output 05/06/24 05/07/24 05/07/24 18:59 06:59 18:59 Intake Total 200 1800 800 Output Total 800 Balance 200 1000 800 Weight 46.266 kg Intake: IV 200 Intake, IV Titration 1560 Amount Ampicillin-Sulbactam 3 gm 100 In Sodium Chloride 0.9% 100 ml @ 200 mls/hr IVPB Q8HR [facility] Rx#:[id number] Mvi, Adult No.4 with Vit 360 K 10 ml Trace (Conc-1Ml/ Dose) 1 ml Sodium Acetate 30 meq Potassium Phosphate 15 mmol Magnesium Sulfate gm 1 gm Calcium Gluconate 1 gm In Amino Acid 5%-D15w 1, 000 ml @ 30 mls/hr IV . Q24H [facility] Rx#:[id number] Sodium Chloride 0.9% 1, 1100 000 ml @ 100 mls/hr IV . Q10H [facility] Rx#:[id number] Oral 240 800 Output: Urine 800 Other: Voiding Method Toilet Toilet # Voids 1 1 # Bowel Movements 1 - Labs CBC & Chem 7: 05/05/24 02:47 05/07/24 04:43 Labs: Abnormal Lab Results - Last 24 Hours (Table) 05/06/24 05/06/24 05/07/24 Range/Units 14:20 21:07 01:41 Sodium (137-145) mmol/L Chloride 111 H (98-107) mmol/L Carbon Dioxide 14 L (22-30) mmol/L Glucose 62 L (74-99) mg/dL POC Glucose (mg/dL) 120 H 124 H (70-110) mg/dL Calcium 7.8 L (8.4-10.2) mg/dL Phosphorus (2.5-4.5) mg/dL Total Protein 5.2 L (6.3-8.2) g/dL Albumin 2.7 L (3.5-5.0) g/dL Triglycerides (0.00-149.00) mg/dL 05/07/24 05/07/24 05/07/24 Range/Units 04:43 04:43 07:38 Sodium 135 L (137-145) mmol/L Chloride 112 H (98-107) mmol/L Carbon Dioxide 18 L (22-30) mmol/L Glucose 141 H (74-99) mg/dL POC Glucose (mg/dL) 154 H (70-110) mg/dL Calcium 7.5 L (8.4-10.2) mg/dL Phosphorus 2.4 L (2.5-4.5) mg/dL Total Protein (6.3-8.2) g/dL Albumin (3.5-5.0) g/dL Triglycerides 161.00 H (0.00-149.00) mg/dL
--- NOTE | 2024-05-07 13:34 | P.PN ---
Subjective Progress Note Date: 05/07/24 Principal diagnosis: Reason for follow up visit Enterococcus faecalis UTI Patient is a 73-year-old female with a past medical history significant for hypertension presenting to the hospital for evaluation of nausea and vomiting, CT abdominal pelvis with evidence of dilated esophagus stomach concerning for obstruction is being monitored by general surgery did have a positive UA with urine culture growing Enterococcus prompting this consultation. On today's evaluation that is 05/07/2024, Patient is afebrile this morning patient denies having any chest pain shortness of breath or cough, the patient is currently on room air, patient denies any abdominal pain NG has been discontinued and no nausea or vomiting or diarrhea. Patient did have a creatinine 1.02 Objective - Vital Signs Vital signs: Vital Signs Temp 97.5 F L 05/07/24 12:54 Pulse 89 05/07/24 12:54 Resp 17 05/07/24 12:54 BP 151/84 05/07/24 12:54 Pulse Ox 99 05/07/24 12:54 FiO2 Intake & Output 05/06/24 05/07/24 05/07/24 18:59 06:59 18:59 Intake Total 200 1800 800 Output Total 800 Balance 200 1000 800 Weight 46.266 kg Intake: IV 200 Intake, IV Titration 1560 Amount Ampicillin-Sulbactam 3 gm 100 In Sodium Chloride 0.9% 100 ml @ 200 mls/hr IVPB Q8HR [facility] Rx#:[id number] Mvi, Adult No.4 with Vit 360 K 10 ml Trace (Conc-1Ml/ Dose) 1 ml Sodium Acetate 30 meq Potassium Phosphate 15 mmol Magnesium Sulfate gm 1 gm Calcium Gluconate 1 gm In Amino Acid 5%-D15w 1, 000 ml @ 30 mls/hr IV . Q24H [facility] Rx#:[id number] Sodium Chloride 0.9% 1, 1100 000 ml @ 100 mls/hr IV . Q10H [facility] Rx#:[id number] Oral 240 800 Output: Urine 800 Other: Voiding Method Toilet Toilet # Voids 1 1 # Bowel Movements 1 - Exam GENERAL DESCRIPTION: An elderly female lying in bed in no distress RESPIRATORY SYSTEM: Unlabored breathing , decreased breath sounds at bases HEART: S1 S2 regular rate and rhythm , ABDOMEN: Soft , no tenderness EXTREMITIES: No edema feet - Labs CBC & Chem 7: 12/08/24 02:47 05/07/24 04:43 Labs: Abnormal Lab Results - Last 24 Hours (Table) 05/06/24 05/06/24 05/07/24 Range/Units 14:20 21:07 01:41 Sodium (137-145) mmol/L Chloride 111 H (98-107) mmol/L Carbon Dioxide 14 L (22-30) mmol/L Glucose 62 L (74-99) mg/dL POC Glucose (mg/dL) 120 H 124 H (70-110) mg/dL Calcium 7.8 L (8.4-10.2) mg/dL Phosphorus (2.5-4.5) mg/dL Total Protein 5.2 L (6.3-8.2) g/dL Albumin 2.7 L (3.5-5.0) g/dL Triglycerides (0.00-149.00) mg/dL 05/07/24 05/07/24 05/07/24 Range/Units 04:43 04:43 07:38 Sodium 135 L (137-145) mmol/L Chloride 112 H (98-107) mmol/L Carbon Dioxide 18 L (22-30) mmol/L Glucose 141 H (74-99) mg/dL POC Glucose (mg/dL) 154 H (70-110) mg/dL Calcium 7.5 L (8.4-10.2) mg/dL Phosphorus 2.4 L (2.5-4.5) mg/dL Total Protein (6.3-8.2) g/dL Albumin (3.5-5.0) g/dL Triglycerides 161.00 H (0.00-149.00) mg/dL Assessment and Plan (1) Complicated UTI (urinary tract infection) Current Visit: No Status: Acute Code(s): N39.0 - URINARY TRACT INFECTION, SITE NOT SPECIFIED SNOMED Code(s): 28891094 Plan: 1patient presented to hospital with acute nausea and vomiting in this patient who did have history of right-sided hydronephrosis requiring ureteral stent placement still have persistent hydronephrosis now with urine culture positive for Enterococcus faecalis suggestive of complicated urinary tract infection 2patient did have documented allergy in the chart of cephalexin which is mostly nausea and vomiting and not a true allergy 3-patient is afebrile white count is normal, 4patient will be treated Unasyn to 3 g every 6 hours we will transition to oral Augmentin once her oral intake improved Dictation was produced using [employer] dictation software. please excuse any grammatical, word or spelling errors. Time with Patient: Less than 30
[2024-05-07] MEDS ORDERED: MVI, ADULT NO.4 WITH VIT K 10 ML, TRACE (CONC-1ML/DOSE) 1 ML, SODIUM ACETATE 60 MEQ, PO... IV SCH (16:00)
[2024-05-07] MEDS ORDERED: [UNRECOGNIZED DRUG - REMARK] IV SCH (17:00)
[2024-05-07] MEDS: [UNRECOGNIZED DRUG - REMARK] IV ONE (17:30)
[2024-05-07 19:24] VITALS: RESP 16
[2024-05-08 05:21] LABS: African American GFR (CKD) 68 (>60 ml/min/1.73 sqM); Anion Gap 4 mmol/L; Blood Urea Nitrogen 17 mg/dL (7-17); Calcium 7.4 mg/dL (8.4-10.2); Carbon Dioxide 22 mmol/L (22-30); Chloride 107 mmol/L (98-107); Glucose 149 mg/dL (74-99); Magnesium 1.9 mg/dL (1.6-2.3); Non-African American GFR(CKD) 59 (>60 ml/min/1.73 sqM); Phosphorus 2.6 mg/dL (2.5-4.5); Potassium 3.4 mmol/L (3.5-5.1); Sodium 133 mmol/L (137-145)
--- NOTE | 2024-05-08 06:32 | P.PN ---
Subjective Progress Note Date: 05/07/24 72-year-old female came with complaints of nausea vomiting abdominal pain has been going on for 2 weeks. Her last bowel movement was normal passing gas has not been eating well CT of the abdomen was done which showed gastric outlet obstruction patient is also severely dehydrated with serum creatinine of 1.76 baseline within normal limits patient has electrolyte abnormalities as well as from dehydration patient is presently receiving IV fluids, has an NG tube. General surgery will evaluate the patient. 05/03/2024 Patient is seen and evaluated in follow-up being followed with Dr. Jung general surgery and continues on gentle hydration. Patient is currently continued with n.p.o. only ice chips and continued NG tube. Patient reports passing gas and did have a bowel movement. Repeat endoscopy being planned for possibly Monday. Kidney functions improving and will monitor closely. Hemoglobin just above 8 and recommend monitoring closely as there was a slight drop. No active bleeding noted and initial EGD showed erosive gastritis, esophageal ulceration and chronic gastritis without any active bleeding. 05/04/2024 Patient is evaluated today in follow up on the medical floor. Patient underwent EGD with decompression and NG tube placement 2 days ago. NG tube has been turned off to suction and patient started on clear liquid diet. Has active bowel sounds in all quadrants and less bloated today. Does report passing gas. Urology also saw the patient as she was recently admitted for urinary retention and found to have hydronephrosis and had right ureter stent placed. She has been having dysuria on an outpatient basis prior to admission. Her urine culture is finalized showing Enterococcus faecalis and she has been started on IV unasyn. ID was consulted. 05/05/2024 Patient noted today in follow-up on the medical floor. NG tube remains in place to low intermittent suction overnight. With 300 mL of gastric drainage overnight. She does feel less bloated today. Patient is scheduled to undergo EGD tomorrow. She is also on IV Unasyn for an acute UTI. She will follow-up with urology in the office no further workup inpatient for the right sided hydronephrosis. Blood cell count of 9.56, hemoglobin stable 8.8, sodium 140, BUN of 15 creatinine of 1.1. Magnesium 1.5. 05/06/2024 Patient is seen in follow-up today just underwent EGD with dilatation with Dr. Fabiana and continues with NG tube. Biopsies were obtained on an acute gastric ulcer and also a gastric polyp. 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 Patient is being started on clear liquids and continuing with NG tube with possible removal in the next 24 hours only per surgery recommendations. Patient is being initiated on TPN per surgery as well. Patient is afebrile with no reported chest pain or shortness of breath. Patient continues on antibiotics as well for urinary tract infection with Enterococcus. 05/07/2024 Patient is seen in follow-up today tolerating clears and NG tube will be removed. Considering full liquids and transitioning to soft diet later this evening. Patient is passing gas and is continued on TPN for now until tolerating more diet. Home medications reviewed and resumed as patient is requesting her blood pressure medications to be resumed. Will continue with just lisinopril as patient takes a combination lisinopril/hydrochlorothiazide tablet daily. Follow-up with repeat labs in the a.m. Encouraged increase activity as tolerated with frequent walking. Patient is also continued on antibiotics with infectious disease following for urinary tract infection. Review of systems: Constitutional: No reports of fatigue, fever, or chills Cardiovascular: No reports of chest pain or palpitations Respiratory: No reports of shortness of breath or cough GI: No reports of nausea, vomiting, or diarrhea, reports passing gas and tolerating clear liquids : No reports of dysuria or retention Neurovascular: reports of generalized weakness All other systems are negative except those mentioned in the HPI PHYSICAL EXAMINATION: GENERAL: The patient is alert and oriented x3, not in any acute distress. Thin built female, elderly appearing HEENT: Pupils are round and equally reacting to light. EOMI. No scleral icterus. No conjunctival pallor. Normocephalic, atraumatic. No pharyngeal erythema. No thyromegaly. NG tube is being removed CARDIOVASCULAR: S1 and S2 present. No murmurs, rubs, or gallops. PULMONARY: Chest is clear to auscultation, no wheezing or crackles. ABDOMEN: Soft, nontender, nondistended, normoactive bowel sounds. No palpable organomegaly. MUSCULOSKELETAL: No joint swelling or deformity. EXTREMITIES: No cyanosis, clubbing, or pedal edema. NEUROLOGICAL: Gross neurological examination did not reveal any focal deficits. SKIN: No rashes. Assessment: -Nausea vomiting secondary to gastric outlet obstruction status post EGD showing acute gastric obstruction, GERD, esophageal ulceration with chronic gastritis without any active bleeding. Per surgery removing NG tube and tolerating clear liquids being advanced to full liquids and possible low fiber later today, EGD with dilatation and also noted to have gastric ulcer and a biopsy was obtained -Severe dehydration, improving, continue gentle hydration, patient being started on TPN per surgery -Acute renal failure prerenal azotemia secondary to severe dehydration, IV fluids will be continued, improving -Hypokalemia secondary to nausea vomiting potassium will be replaced, monitor closely and replace per protocol -Leukocytosis reactive -Moderate protein calorie malnutrition with a BMI of 18.1 -Constipation, will use Dulcolax suppository, had a bowel movement -Acute urinary tract infection, present on admission with Enterobacter growing in the culture -Hyperlipidemia continue with atorvastatin -History of hypertension, will resume home medications and hold hydrochlorothiazide for now DVT prophylaxis: Lovenox GI prophylaxis Full code Plan: ID following patient remains on IV Unasyn for the Enterococcus UTI. Patient is currently tolerating clear liquids and being advanced to full liquids possible low fiber later today. NG tube to be removed. Continue TPN for now per surgery and wean once tolerating more diet Home medications reviewed and resumed although continuing to hold hydrochlorothiazide and will continue with lisinopril. We will continue to follow with general surgery and monitor closely. Admitting service has been transitioned to general surgery Follow-up with repeat labs and replace electrolytes per protocol Encouraged increase activity as tolerated and sitting up in the chair more often The impression and plan of care has been dictated by Rosenda Rao, Nurse Practitioner as directed. Dr. Juan M MD I have performed a history and examination and MDM of this patient, discussed the same with the dictator, and agree with the dictator's assessment and plan as written ,documented as a scribe. Based on total visit time, I have performed more than 50% of the visit. Objective - Vital Signs Vital signs: Vital Signs Temp 98.7 F 05/08/24 01:04 Pulse 92 05/08/24 01:04 Resp 16 05/08/24 01:04 BP 133/81 05/08/24 01:04 Pulse Ox 98 05/08/24 01:04 FiO2 Intake & Output 05/07/24 05/07/24 05/08/24 06:59 18:59 06:59 Intake Total 1800 1880 118 Output Total 800 Balance 1000 1880 118 Intake: Intake, IV Titration 1560 Amount Ampicillin-Sulbactam 3 gm 100 In Sodium Chloride 0.9% 100 ml @ 200 mls/hr IVPB Q8HR [facility] Rx#:[id number] Mvi, Adult No.4 with Vit 360 K 10 ml Trace (Conc-1Ml/ Dose) 1 ml Sodium Acetate 30 meq Potassium Phosphate 15 mmol Magnesium Sulfate gm 1 gm Calcium Gluconate 1 gm In Amino Acid 5%-D15w 1, 000 ml @ 30 mls/hr IV . Q24H [facility] Rx#:[id number] Sodium Chloride 0.9% 1, 1100 000 ml @ 100 mls/hr IV . Q10H [facility] Rx#:[id number] Oral 240 1880 118 Output: Urine 800 Other: Voiding Method Toilet # Voids 1 3 1 # Bowel Movements 1 - Labs CBC & Chem 7: 05/05/24 02:47 05/08/24 04:32 Labs: Abnormal Lab Results - Last 24 Hours (Table) 05/07/24 05/07/24 05/08/24 Range/Units 04:43 07:38 04:32 Sodium 133 L (137-145) mmol/L Potassium 3.4 L (3.5-5.1) mmol/L Glucose 149 H (74-99) mg/dL POC Glucose (mg/dL) 154 H (70-110) mg/dL Calcium 7.4 L (8.4-10.2) mg/dL Triglycerides 161.00 H (0.00-149.00) mg/dL
[2024-05-08] MEDS: [UNRECOGNIZED DRUG - REMARK] IV SCH (06:43)
[2024-05-08] MEDS: lisinopriL 20 MG TAB PO SCH (09:03)
[2024-05-08] MEDS: POTASSIUM CHLORIDE 20 MEQ in WATER FOR INJECTION 1 100ML.BAG IVPB SCH (11:30)
[2024-05-08 13:13] VITALS: BP 136/74; PULSE 96; TEMP 98
--- NOTE | 2024-05-08 14:47 | P.DS ---
Providers Date of admission: 05/01/24 20:29 Expected date of discharge: 05/08/24 Attending physician: Nancy Cheung Consults: 05/01/24 20:27 Consult Physician Routine Consulting Provider: Nancy Cheung Consult Reason/Comments: gastric outlet obst Do you want consulting provider notified?: Already Contacted 05/03/24 12:52 Consult Physician Routine Consulting Provider: Jeff Mcgowan Consult Reason/Comments: med mgmt, gastric outlet obstruction Do you want consulting provider notified?: Yes 05/03/24 14:58 Consult Physician Routine Consulting Provider: Bryant Lechuga Consult Reason/Comments: Ureteral stone Do you want consulting provider notified?: Yes 05/04/24 11:31 Consult Physician Routine Consulting Provider: Roderick Irizarry Consult Reason/Comments: UTI Do you want consulting provider notified?: Yes Primary care physician: [facility] Course: Discharge diagnosis Gastric outlet obstruction Duodenal stricture Acute gastric ulcer Gastric polyp UTI Hypokalemia. Received potassium supplement Hospital course The patient is a 73-year-old female who presents with intractable nausea vomiting due to gastric outlet obstruction. Patient had NG tube placed. Patient initially had an EGD with decompression of stomach of 300 cc completed on 05/02/2024. Results reported acute gastric obstruction, acute esophageal ulceration and chronic gastritis without active bleeding and GERD with erosive esophagitis. Patient started on Protonix and Carafate. Patient then had a repeat upper endoscopy after stomach completely decompressed on 05/06/2024. The results had reported a duodenal stricture patient had balloon dilation of the duodenum. Also evidence of acute gastric ulcer and a gastric polyp. Patient did start having bowel activity after procedure. NG tube was removed and started on clear liquids. Patient has tolerated advancement of diet. She is having bowel movements. She was also found evidence of UTI. Infectious disease recommending Augmentin at discharge. she has been up and ambulating. She is afebrile. She is stable for discharge. Physician Medicaid Eligibility Specialist note has been reviewed by physician. Signing provider agrees with the documented findings, assessment, and plan of care. Patient Condition at Discharge: Stable Plan - Discharge Summary Discharge Rx Participant: No New Discharge Prescriptions: New Sucralfate [Carafate] 1 gm PO AC-TID #90 tab Pantoprazole Sodium [Protonix] 40 mg PO DAILY #90 tab Amoxic-Pot Clav 875-125Mg [Augmentin 875-125] 1 tab PO Q12HR 10 Days #20 tab Continue Acetaminophen Tab [Tylenol] 500 - 1,000 mg PO Q6HR PRN PRN Reason: Pain Rosuvastatin [Crestor] 20 mg PO HS Balance Of Nature Fruits 3 cap PO HS Sennosides-Docusate Sodium [Senokot-S] 1 tab PO BID PRN PRN Reason: Constipation Multivitamins, Thera [Multivitamin (formulary)] 1 tab PO BID Labetalol [Trandate] 50 mg PO HS Balance Of Nature Veggies 3 cap PO HS ondansetron HCL [Zofran] 8 mg PO Q12HR PRN PRN Reason: Nausea No Action Labetalol [Trandate] 100 mg PO DAILY Lisinopril-Hctz 20-12.5 mg [Zestoretic 20-12.5] 1 tab PO HS Discharge Medication List Labetalol [Trandate] 100 mg PO DAILY 12/29/19 [History] Acetaminophen Tab [Tylenol] 500 - 1,000 mg PO Q6HR PRN 03/10/24 [History] Balance Of Nature Fruits 3 cap PO HS 03/10/24 [History] Balance Of Nature Veggies 3 cap PO HS 03/10/24 [History] Labetalol [Trandate] 50 mg PO HS 03/10/24 [History] Multivitamins, Thera [Multivitamin (formulary)] 1 tab PO BID 03/10/24 [History] Rosuvastatin [Crestor] 20 mg PO HS 03/10/24 [History] Lisinopril-Hctz 20-12.5 mg [Zestoretic 20-12.5] 1 tab PO HS 05/01/24 [History] Sennosides-Docusate Sodium [Senokot-S] 1 tab PO BID PRN 05/01/24 [History] ondansetron HCL [Zofran] 8 mg PO Q12HR PRN 05/01/24 [History] Amoxic-Pot Clav 875-125Mg [Augmentin 875-125] 1 tab PO Q12HR 10 Days #20 tab 05/08/24 [Rx] Pantoprazole Sodium [Protonix] 40 mg PO DAILY #90 tab 05/08/24 [Rx] Sucralfate [Carafate] 1 gm PO AC-TID #90 tab 05/08/24 [Rx] Follow up Appointment(s)/Referral(s): Werner Blair MD [Primary Care Provider] - 1-2 days Nancy Cheung MD [STAFF PHYSICIAN] - 05/14/24 Activity/Diet/Wound Care/Special Instructions: Continue a low fiber diet with warm beverages Discharge Disposition: HOME SELF-CARE
[2024-05-08] MEDS ORDERED: LABETALOL 100 MG TAB PO SCH (21:00)
[2024-05-09] MEDS ORDERED: [UNRECOGNIZED DRUG - REMARK] IV SCH (07:00)
--- NOTE | 2024-05-09 14:19 | P.PN ---
Subjective Progress Note Date: 05/08/24 Principal diagnosis: Reason for follow up visit Enterococcus faecalis UTI Patient is a 73-year-old female with a past medical history significant for hypertension presenting to the hospital for evaluation of nausea and vomiting, CT abdominal pelvis with evidence of dilated esophagus stomach concerning for obstruction is being monitored by general surgery did have a positive UA with urine culture growing Enterococcus prompting this consultation. On today's evaluation that is 05/08/2024,the patient denies any fever or any chills, patient is breathing comfortably on room air, the patient denies chest pain shortness of breath and no significant cough, patient denies abdominal pain, no nausea vomiting or diarrhea. Patient mention feeling better. Patient did have a creatinine 0.97 no CBC was done today Objective - Vital Signs Vital signs: Vital Signs Temp 98.2 F 05/08/24 07:17 Pulse 88 05/08/24 08:00 Resp 16 05/08/24 08:00 BP 142/83 05/08/24 07:17 Pulse Ox 95 05/08/24 07:17 FiO2 Intake & Output 05/07/24 05/08/24 05/08/24 18:59 06:59 18:59 Intake Total 1880 118 585.916 Output Total 1 Balance 1880 118 584.916 Intake: Intake, IV Titration 345.916 Amount Mvi, Adult No.4 with Vit 345.916 K 10 ml Trace (Conc-1Ml/ Dose) 1 ml Sodium Acetate 90 meq Potassium Phosphate 30 mmol Magnesium Sulfate gm 2 gm Calcium Gluconate 2 gm In Amino Acid 5%-D15w 2, 000 ml @ 70 mls/hr IV . Q24H [facility] Rx#:[id number] Oral 1880 118 240 Output: Stool 1 Other: Voiding Method Toilet # Voids 3 1 - Exam GENERAL DESCRIPTION: An elderly female lying in bed in no distress RESPIRATORY SYSTEM: Unlabored breathing , decreased breath sounds at bases HEART: S1 S2 regular rate and rhythm , ABDOMEN: Soft , no tenderness EXTREMITIES: No edema feet - Labs CBC & Chem 7: 05/05/24 02:47 05/08/24 04:32 Labs: Abnormal Lab Results - Last 24 Hours (Table) 05/08/24 Range/Units 04:32 Sodium 133 L (137-145) mmol/L Potassium 3.4 L (3.5-5.1) mmol/L Glucose 149 H (74-99) mg/dL Calcium 7.4 L (8.4-10.2) mg/dL Assessment and Plan (1) Complicated UTI (urinary tract infection) Status: Acute Code(s): N39.0 - URINARY TRACT INFECTION, SITE NOT SPECIFIED SNOMED Code(s): 17275484 Plan: 1patient presented to hospital with acute nausea and vomiting in this patient who did have history of right-sided hydronephrosis requiring ureteral stent placement still have persistent hydronephrosis now with urine culture positive for Enterococcus faecalis suggestive of complicated urinary tract infection 2patient did have documented allergy in the chart of cephalexin which is mostly nausea and vomiting and not a true allergy 3-patient is afebrile white count is normal, patient has shown clinical improvement on Unasyn he will finish therapy with a 10-day course of oral Augmentin on discharge discussed with the surgical CPS TEAM LEAD working on discharge Dictation was produced using [employer] dictation software. please excuse any grammatical, word or spelling errors. Time with Patient: Less than 30
--- NOTE | 2024-05-09 16:01 | P.PN ---
Subjective Progress Note Date: 05/08/24 72-year-old female came with complaints of nausea vomiting abdominal pain has been going on for 2 weeks. Her last bowel movement was normal passing gas has not been eating well CT of the abdomen was done which showed gastric outlet obstruction patient is also severely dehydrated with serum creatinine of 1.76 baseline within normal limits patient has electrolyte abnormalities as well as from dehydration patient is presently receiving IV fluids, has an NG tube. General surgery will evaluate the patient. 05/03/2024 Patient is seen and evaluated in follow-up being followed with Dr. Jung general surgery and continues on gentle hydration. Patient is currently continued with n.p.o. only ice chips and continued NG tube. Patient reports passing gas and did have a bowel movement. Repeat endoscopy being planned for possibly Monday. Kidney functions improving and will monitor closely. Hemoglobin just above 8 and recommend monitoring closely as there was a slight drop. No active bleeding noted and initial EGD showed erosive gastritis, esophageal ulceration and chronic gastritis without any active bleeding. 05/04/2024 Patient is evaluated today in follow up on the medical floor. Patient underwent EGD with decompression and NG tube placement 2 days ago. NG tube has been turned off to suction and patient started on clear liquid diet. Has active bowel sounds in all quadrants and less bloated today. Does report passing gas. Urology also saw the patient as she was recently admitted for urinary retention and found to have hydronephrosis and had right ureter stent placed. She has been having dysuria on an outpatient basis prior to admission. Her urine culture is finalized showing Enterococcus faecalis and she has been started on IV unasyn. ID was consulted. 05/05/2024 Patient noted today in follow-up on the medical floor. NG tube remains in place to low intermittent suction overnight. With 300 mL of gastric drainage overnight. She does feel less bloated today. Patient is scheduled to undergo EGD tomorrow. She is also on IV Unasyn for an acute UTI. She will follow-up with urology in the office no further workup inpatient for the right sided hydronephrosis. Blood cell count of 9.56, hemoglobin stable 8.8, sodium 140, BUN of 15 creatinine of 1.1. Magnesium 1.5. 05/06/2024 Patient is seen in follow-up today just underwent EGD with dilatation with Dr. Fabiana and continues with NG tube. Biopsies were obtained on an acute gastric ulcer and also a gastric polyp. 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 Patient is being started on clear liquids and continuing with NG tube with possible removal in the next 24 hours only per surgery recommendations. Patient is being initiated on TPN per surgery as well. Patient is afebrile with no reported chest pain or shortness of breath. Patient continues on antibiotics as well for urinary tract infection with Enterococcus. 05/07/2024 Patient is seen in follow-up today tolerating clears and NG tube will be removed. Considering full liquids and transitioning to soft diet later this evening. Patient is passing gas and is continued on TPN for now until tolerating more diet. Home medications reviewed and resumed as patient is requesting her blood pressure medications to be resumed. Will continue with just lisinopril as patient takes a combination lisinopril/hydrochlorothiazide tablet daily. Follow-up with repeat labs in the a.m. Encouraged increase activity as tolerated with frequent walking. Patient is also continued on antibiotics with infectious disease following for urinary tract infection. 05/08/2024 Patient is seen in follow-up this morning with no acute overnight issues noted. Patient is tolerating advance diet and per surgery patient is being discharged today. TPN has been discontinued and will continue current diet and slowly advance as tolerated. Patient also will continue on oral antibiotic therapy on discharge and recommend outpatient follow-up with urology as scheduled. Patient is afebrile and denies any chest pain or shortness of breath. Patient reports to tolerating diet with no reported nausea or vomiting. Patient has been having bowel movements and has been up and walking. Patient is medically stable once cleared by general surgery. Review of systems: Constitutional: No reports of fatigue, fever, or chills Cardiovascular: No reports of chest pain or palpitations Respiratory: No reports of shortness of breath or cough GI: No reports of nausea, vomiting, or diarrhea, reports passing gas and tolerating diet and has had bowel movements : No reports of dysuria or retention Neurovascular: reports of generalized weakness All other systems are negative except those mentioned in the HPI PHYSICAL EXAMINATION: GENERAL: The patient is alert and oriented x3, not in any acute distress. Thin built female, elderly appearing HEENT: Pupils are round and equally reacting to light. EOMI. No scleral icterus. No conjunctival pallor. Normocephalic, atraumatic. No pharyngeal erythema. No thyromegaly. CARDIOVASCULAR: S1 and S2 present. No murmurs, rubs, or gallops. PULMONARY: Chest is clear to auscultation, no wheezing or crackles. ABDOMEN: Soft, nontender, nondistended, normoactive bowel sounds. No palpable organomegaly. MUSCULOSKELETAL: No joint swelling or deformity. EXTREMITIES: No cyanosis, clubbing, or pedal edema. NEUROLOGICAL: Gross neurological examination did not reveal any focal deficits. SKIN: No rashes. Assessment: -Nausea vomiting secondary to gastric outlet obstruction status post EGD showing acute gastric obstruction, GERD, esophageal ulceration with chronic gastritis without any active bleeding. -Severe dehydration, improved -Acute renal failure prerenal azotemia secondary to severe dehydration, improving -Hypokalemia secondary to nausea vomiting, improved -Leukocytosis reactive -Moderate protein calorie malnutrition with a BMI of 18.1 -Constipation, will use Dulcolax suppository, had a bowel movement -Acute urinary tract infection, present on admission with Enterobacter growing in the culture -Hyperlipidemia continue with atorvastatin -History of hypertension, will resume home medications and hold hydrochlorothiazide for now, continue lisinopril DVT prophylaxis: Lovenox GI prophylaxis Full code Plan: ID following patient remains on IV Unasyn for the Enterococcus UTI. Patient will likely transition to oral antibiotics on discharge. Recommend keeping follow-up appointment with urology as scheduled Patient is currently tolerating diet and per surgery will be going home today. Home medications reviewed and resumed although continuing to hold hydrochlorothiazide and will continue with lisinopril. Instructed patient to follow-up with primary care provider on discharge We will continue to follow with general surgery and monitor closely. Admitting service has been transitioned to general surgery Patient is medically stable once cleared by surgery and antibiotic recommendations for discharge. The impression and plan of care has been dictated by Rosenda Rao Nurse Practitioner as directed. Dr. Juan M MD I have performed a history and examination and MDM of this patient, discussed the same with the dictator, and agree with the dictator's assessment and plan as written ,documented as a scribe. Based on total visit time, I have performed more than 50% of the visit. Objective - Vital Signs Vital signs: Vital Signs Temp 98.2 F 05/08/24 07:17 Pulse 101 H 05/08/24 07:17 Resp 16 05/08/24 07:17 BP 142/83 05/08/24 07:17 Pulse Ox 95 05/08/24 07:17 FiO2 Intake & Output 05/07/24 05/08/24 05/08/24 18:59 06:59 18:59 Intake Total 1880 118 240 Balance 1880 118 240 Intake: Oral 1880 118 240 Other: # Voids 3 1 - Labs CBC & Chem 7: 05/05/24 02:47 05/08/24 04:32 Labs: Abnormal Lab Results - Last 24 Hours (Table) 05/08/24 Range/Units 04:32 Sodium 133 L (137-145) mmol/L Potassium 3.4 L (3.5-5.1) mmol/L Glucose 149 H (74-99) mg/dL Calcium 7.4 L (8.4-10.2) mg/dL
== END 2024-05-08 17:25 | disposition home or self-care (01) | DRG 381 ==
LOC: EC 15:38 → 5NMEDONC 20:29
PROVIDERS: ADMIT Surgery Plastic and Reconstructive Surgery; ATTEND Surgery Plastic and Reconstructive Surgery
PROC: 3E0336Z Introduction of Nutritional Substance into Peripheral Vein, Percutaneous Approach (ICD-10-PCS; 2024-05-02)
PROC: 0D9680Z Drainage of Stomach with Drainage Device, Via Natural or Artificial Opening Endoscopic (ICD-10-PCS; principal; 2024-05-02 07:55)
PROC: 02HV33Z Insertion of Infusion Device into Superior Vena Cava, Percutaneous Approach (ICD-10-PCS; 2024-05-06)
PROC: B5181ZA Fluoroscopy of Superior Vena Cava using Low Osmolar Contrast, Guidance (ICD-10-PCS; 2024-05-06)
PROC: B548ZZA Ultrasonography of Superior Vena Cava, Guidance (ICD-10-PCS; 2024-05-06)
PROC: 0DB98ZX Excision of Duodenum, Via Natural or Artificial Opening Endoscopic, Diagnostic (ICD-10-PCS; 2024-05-06)
PROC: 0DB78ZX Excision of Stomach, Pylorus, Via Natural or Artificial Opening Endoscopic, Diagnostic (ICD-10-PCS; 2024-05-06)
PROC: 0DB38ZX Excision of Lower Esophagus, Via Natural or Artificial Opening Endoscopic, Diagnostic (ICD-10-PCS; 2024-05-06)
PROC: 0DB58ZX Excision of Esophagus, Via Natural or Artificial Opening Endoscopic, Diagnostic (ICD-10-PCS; 2024-05-06 07:30)
DX: K22.10 Ulcer of esophagus without bleeding (principal); E44.0 Moderate protein-calorie malnutrition; K31.5 Obstruction of duodenum; N17.9 Acute kidney failure, unspecified; Z68.1 Body mass index [BMI] 19.9 or less, adult; N13.6 Pyonephrosis; N20.1 Calculus of ureter; K31.1 Adult hypertrophic pyloric stenosis; K29.50 Unspecified chronic gastritis without bleeding; K21.00 Gastro-esophageal reflux disease with esophagitis, without bleeding; E86.0 Dehydration; B95.2 Enterococcus as the cause of diseases classified elsewhere; K22.89 Other specified disease of esophagus; I10 Essential (primary) hypertension; E87.6 Hypokalemia; E78.5 Hyperlipidemia, unspecified; K31.7 Polyp of stomach and duodenum; Z87.440 Personal history of urinary (tract) infections; Z87.19 Personal history of other diseases of the digestive system; Z88.1 Allergy status to other antibiotic agents
CPT/HCPCS: 36415; 36573; 43235; 43239; 43245; 71045; 74176; 80048; 80053; 81001; 82150; 82330; 83605; 83690; 83735; 84100; 84132; 84478; 84484; 85025; 87077; 87086; 87186; 88305; 93005; 96361; 96374; 99285